=== PATIENT | female | born 1940 | race Hispanic/Latino ===

== ENCOUNTER 2018-03-24 16:08 | Emergency (ER) | payer MEDICARE, OTHER ==
[~2018-03-24] VITALS: Ht 160 cm; Wt 74.8 kg
[2018-03-24] MEDS ORDERED: HYDROCODONE/APAP 10MG-325MG TAB PO ONE (17:30)
[2018-03-24 19:57] VITALS: BP 150/63
--- NOTE | 2018-03-24 21:58 | Diagnostic Imaging Report ---
History: Fall Comparison studies: None Technique:: Axial were obtained through the thoracic and lumbar regions. Coronal and sagittal images reconstructed from the axial data. Intravenous contrast: None Findings: Alignment: Normal thoracic kyphosis. Grade 1 anterolisthesis f L4-5. Normal remaining lumbar lordosis.. mIld lumbar dextroscoliosis. Soft tissues: No acute abnormalities. Atherosclerotic calcifications of the aorta and branches. Paraspinal muscles: Fatty infiltration with moderate atrophy. Spinal cord: Can not be evaluated. Vertebrae: No fractures, infection or neoplasm . Thoracic degenerative changes: Disc degeneration with decreased intervertebral space from C7-T11. Patent canal and foramina. Lumbar degenerative changes: Disc degeneration with decreased intervertebral space from L1- 5. Vacuum disc phenomenon from L1- 4. Diffuse disc bulge and posterior element hypertrophy results in moderate canal stenosis and moderate bilateral foraminal narrowing from L2-5. Degenerative changes at the lower cervical spine partially visualized. IMPRESSION: 1. No acute abnormality of the thoracic or lumbar spine. Degenerative changes as described. 2. Cannot exclude ligament, spinal cord and or vascular abnormalities on the basis of this examination Signed by: DR Too Winkler M.D. on 03/24/2018 9:58 PM
== END 2018-03-24 21:35 | disposition home or self-care (01) ==
LOC: ER 16:08
DX: S39.012A Strain of muscle, fascia and tendon of lower back, initial encounter (principal); S29.012A Strain of muscle and tendon of back wall of thorax, initial encounter; G30.9 Alzheimer's disease, unspecified; F02.80 Dementia in other diseases classified elsewhere, unspecified severity, without behavioral disturbance, psychotic disturbance, mood disturbance, and anxiety; Z74.01 Bed confinement status; E11.9 Type 2 diabetes mellitus without complications; K21.9 Gastro-esophageal reflux disease without esophagitis; E78.5 Hyperlipidemia, unspecified; I11.0 Hypertensive heart disease with heart failure; I50.9 Heart failure, unspecified
CPT/HCPCS: 72128; 72131; 99284

== ENCOUNTER 2019-05-05 13:39 | Inpatient (IN) | payer MEDICARE, OTHER ==
[2019-05-04 21:50] VITALS: BP 134/57
[~2019-05-05] VITALS: Ht 154.9 cm; Wt 73.2 kg
--- OUTSIDE RECORDS SUMMARY | 2019-05-05 13:42 | XMS REPORT ---
[facility] Address Unknown Phone Unavailable Care Team Providers Care Qc Scientist Name Role Phone Tom SAUCEDO Unavailable Unavailable Payers Payer Name Policy Type Policy Number Effective Date Expiration Date Problems This patient has no known problems. Allergies, Adverse Reactions, Alerts Allergy Name Allergy Type Status Severity Reaction(s) Onset Date Inactive Date Treating Clinician Comments No Known Allergies DA Active U 2019-02-08 00:00:00 No Known Allergies DA Active U 2015-03-09 00:00:00 Medications This patient has no known medications. Results Test Description Test Time Test Comments Text Results Atomic Results Result Comments CREATININE 2019-04-07 12:42:00 CREATININE (test code=CREAT) 0.6 mg/dL 0.6-1.3 FAX [phone] 12:31:00* Test Item Value Reference Range Comments HEMOGLOBIN (test code=HGB) 10.6 g/dL 11.0-15.0 FAX [phone] 13:15:00* Test Item Value Reference Range Comments GLUBED (test code=GLUBED) 102 MG/DL 70-110 Performed by certified bottle capping machine operator at [facility] [id number] 08:30:00* Test Item Value Reference Range Comments GLUBED (test code=GLUBED) 92 MG/DL 70-110 Performed by certified bottle capping machine operator at [facility] BASIC METABOLIC [id number] 04:27:00* Test Item Value Reference Range Comments SODIUM (test code=NA) 142 mEq/L 134-147 POTASSIUM (test code=K) 3.9 mEq/L 3.4-5.0 CHLORIDE (test code=CL) 111 mEq/L 100-108 CARBON DIOXIDE (test code=CO2) 24 mEq/L 21-33 ANION GAP (test code=GAP) 11 0-20 GLUCOSE (test code=GLU) 96 mg/dL 70-110 BLOOD UREA NITROGEN (test code=BUN) 9 mg/dL 7-18 GLOMERULAR FILTRATION RATE (test code=GFR) 154.4 70-80 Units of measure=ml/min/1.73 m2 CREATININE (test code=CREAT) 0.4 mg/dL 0.6-1.3 CALCIUM (test code=CA) 8.8 mg/dL 8.0-10.5 [id number] 04:27:00* Test Item Value Reference Range Comments MAGNESIUM (test code=MAG) 2.40 mg/dL 1.8-2.4 CBC W/AUTO [id number] 04:15:00* Test Item Value Reference Range Comments WHITE BLOOD CELL (test code=WBC) 9.01 x10 3/uL 4.5-11.0 RED BLOOD CELL (test code=RBC) 4.03 x10 6/uL 3.54-5.02 HEMOGLOBIN (test code=HGB) 11.0 g/dL 11.0-15.0 HEMATOCRIT (test code=HCT) 35.5 % 33.0-45.0 MEAN CELL VOLUME (test code=MCV) 88.1 fL 81.0-99.0 MEAN CELL HGB (test code=MCH) 27.3 pg 27.0-33.0 MEAN CELL HGB CONCETRATION (test code=MCHC) 31.0 g/dL 33.0-37.0 RED CELL DISTRIBUTION WIDTH CV (test code=RDW) 15.6 % 11.5-14.5 RED CELL DISTRIBUTION WIDTH SD (test code=RDW-SD) 50.4 fL 37.0-54.0 PLATELET COUNT (test code=PLT) 116 x10 3/uL 150-400 MEAN PLATELET VOLUME (test code=MPV) 10.2 fL 7.0-9.0 NEUTROPHIL % (test code=NT%) 63.4 % 56.0-77.0 IMMATURE GRANULOCYTE % (test code=IG%) 0.2 % 0.0-2.0 LYMPHOCYTE % (test code=LY%) 19.8 % 14.0-32.0 MONOCYTE % (test code=MO%) 9.5 % 4.8-9.0 EOSINOPHIL % (test code=EO%) 6.7 % 0.3-3.7 BASOPHIL % (test code=BA%) 0.4 % 0.0-2.0 NUCLEATED RBC % (test code=NRBC%) 0.0 % 0-0 NEUTROPHIL # (test code=NT#) 5.71 x10 3/uL 2.0-7.6 IMMATURE GRANULOCYTE # (test code=IG#) 0.02 x10 3/uL 0.00-0.03 LYMPHOCYTE # (test code=LY#) 1.78 x10 3/uL 1.0-3.8 MONOCYTE # (test code=MO#) 0.86 x10 3/uL 0.1-0.8 EOSINOPHIL # (test code=EO#) 0.60 x10 3/uL 0.0-0.2 BASOPHIL # (test code=BA#) 0.04 x10 3/uL 0.0-0.2 NUCLEATED RBC # (test code=NRBC#) 0.00 x10 3/uL 0.0-0.1 MANUAL DIFF REQUIRED (test code=MDIFF) NO [id number] 21:11:00* Test Item Value Reference Range Comments GLUBED (test code=GLUBED) 100 MG/DL 70-110 Performed by certified bottle capping machine operator at [facility] [id number] 17:10:00* Test Item Value Reference Range Comments GLUBED (test code=GLUBED) 97 MG/DL 70-110 Performed by certified bottle capping machine operator at [facility] [id number] 12:31:00* Test Item Value Reference Range Comments GLUBED (test code=GLUBED) 143 MG/DL 70-110 Performed by certified bottle capping machine operator at [facility] BASIC METABOLIC [id number] 05:22:00* Test Item Value Reference Range Comments SODIUM (test code=NA) 140 mEq/L 134-147 POTASSIUM (test code=K) 3.7 mEq/L 3.4-5.0 CHLORIDE (test code=CL) 109 mEq/L 100-108 CARBON DIOXIDE (test code=CO2) 25 mEq/L 21-33 ANION GAP (test code=GAP) 10 0-20 GLUCOSE (test code=GLU) 94 mg/dL 70-110 BLOOD UREA NITROGEN (test code=BUN) 9 mg/dL 7-18 GLOMERULAR FILTRATION RATE (test code=GFR) 154.4 70-80 Units of measure=ml/min/1.73 m2 CREATININE (test code=CREAT) 0.4 mg/dL 0.6-1.3 CALCIUM (test code=CA) 8.3 mg/dL 8.0-10.5 CBC W/AUTO [id number] 05:07:00* Test Item Value Reference Range Comments WHITE BLOOD CELL (test code=WBC) 9.28 x10 3/uL 4.5-11.0 RED BLOOD CELL (test code=RBC) 3.81 x10 6/uL 3.54-5.02 HEMOGLOBIN (test code=HGB) 10.5 g/dL 11.0-15.0 HEMATOCRIT (test code=HCT) 33.7 % 33.0-45.0 MEAN CELL VOLUME (test code=MCV) 88.5 fL 81.0-99.0 MEAN CELL HGB (test code=MCH) 27.6 pg 27.0-33.0 MEAN CELL HGB CONCETRATION (test code=MCHC) 31.2 g/dL 33.0-37.0 RED CELL DISTRIBUTION WIDTH CV (test code=RDW) 15.8 % 11.5-14.5 RED CELL DISTRIBUTION WIDTH SD (test code=RDW-SD) 51.2 fL 37.0-54.0 PLATELET COUNT (test code=PLT) 123 x10 3/uL 150-400 MEAN PLATELET VOLUME (test code=MPV) 10.1 fL 7.0-9.0 NEUTROPHIL % (test code=NT%) 61.0 % 56.0-77.0 IMMATURE GRANULOCYTE % (test code=IG%) 0.3 % 0.0-2.0 LYMPHOCYTE % (test code=LY%) 22.8 % 14.0-32.0 MONOCYTE % (test code=MO%) 11.4 % 4.8-9.0 EOSINOPHIL % (test code=EO%) 4.2 % 0.3-3.7 BASOPHIL % (test code=BA%) 0.3 % 0.0-2.0 NUCLEATED RBC % (test code=NRBC%) 0.0 % 0-0 NEUTROPHIL # (test code=NT#) 5.65 x10 3/uL 2.0-7.6 IMMATURE GRANULOCYTE # (test code=IG#) 0.03 x10 3/uL 0.00-0.03 LYMPHOCYTE # (test code=LY#) 2.12 x10 3/uL 1.0-3.8 MONOCYTE # (test code=MO#) 1.06 x10 3/uL 0.1-0.8 EOSINOPHIL # (test code=EO#) 0.39 x10 3/uL 0.0-0.2 BASOPHIL # (test code=BA#) 0.03 x10 3/uL 0.0-0.2 NUCLEATED RBC # (test code=NRBC#) 0.00 x10 3/uL 0.0-0.1 MANUAL DIFF REQUIRED (test code=MDIFF) NO [id number] 11:30:00* Test Item Value Reference Range Comments GLUBED (test code=GLUBED) 133 MG/DL 70-110 Performed by certified bottle capping machine operator at [facility] [id number] 10:46:00* Test Item Value Reference Range Comments ALBUMIN (test code=ALB) 3.00 g/dL 3.4-5.0 [id number] 07:46:00* Test Item Value Reference Range Comments GLUBED (test code=GLUBED) 230 MG/DL 70-110 Performed by certified bottle capping machine operator at [facility] - DUP VEIN UNI/[id number] 07:01:00 Name: JARED PAREDES [facility] : 1940 Age/S: 78 / F [address] [place] [address] Unit #: [id number] Loc: [place] [address] Phys: Kasie De La Rosa [employer] DISPATCHER Acct: [id number] Dis Date: Status: ADM IN PHONE #: [phone] Exam Date: 03/03/2019 0508 FAX #: [phone] Reason: pain, edema LUE EXAMS: CPT CODE: [id number] DUP VEIN UNI/LTD 94580 PROCEDURE: UNILATERAL UPPER EXTREMITY VENOUS ULTRASOUND INDICATION: 78-year-old female with left upper extremity pain and edema COMPARISON: None. TECHNIQUE: Sonographic evaluation of the left upper extremity veins was performed using high resolution B- mode imaging, pulse and color Doppler imaging. FINDINGS: The internal jugular, subclavian, axillary, brachial, radial and ulnar veins are patent. The basilic and cephalic veins are patent. Normal venous waveforms. IMPRESSION: 1. No deep venous thrombosis identified in the left upper extremity. SL: CYSauravH at 0701 Reported and signed by: Neel Curtis M.D. CC: Kala La MD; Pilar Nguyen MD; Rocky Romeo MD; Kasie De La Rosa NP Technologist: Adeline Lopes RDMS(A)(OB) Trnscb Date/Time: 03/03/2019 (700) MyriamRH17 Orig Print D/T: S: 03/03/2019 (703) Probe: PAGE 1 Signed Report BASIC METABOLIC [id number] 04:21:00* Test Item Value Reference Range Comments SODIUM (test code=NA) 142 mEq/L 134-147 POTASSIUM (test code=K) 4.0 mEq/L 3.4-5.0 CHLORIDE (test code=CL) 111 mEq/L 100-108 CARBON DIOXIDE (test code=CO2) 24 mEq/L 21-33 ANION GAP (test code=GAP) 11 0-20 GLUCOSE (test code=GLU) 101 mg/dL 70-110 BLOOD UREA NITROGEN (test code=BUN) 8 mg/dL 7-18 GLOMERULAR FILTRATION RATE (test code=GFR) 119.3 70-80 Units of measure=ml/min/1.73 m2 CREATININE (test code=CREAT) 0.5 mg/dL 0.6-1.3 CALCIUM (test code=CA) 8.4 mg/dL 8.0-10.5 [id number] 20:23:00* Test Item Value Reference Range Comments GLUBED (test code=GLUBED) 88 MG/DL 70-110 Performed by certified bottle capping machine operator at [facility] COAGULATION TIME [id number] 16:32:00* Test Item Value Reference Range Comments COAGULATION TIME ACTIVATED (test code=ACT) 108 SECONDS 105-167 COAGULATION TIME [id number] 16:32:00* Test Item Value Reference Range Comments COAGULATION TIME ACTIVATED (test code=ACT) 261 SECONDS 105-167 COAGULATION TIME [id number] 16:32:00* Test Item Value Reference Range Comments COAGULATION TIME ACTIVATED (test code=ACT) 94 SECONDS 105-167 [id number] 16:16:00* Test Item Value Reference Range Comments GLUBED (test code=GLUBED) 118 MG/DL 70-110 Performed by certified bottle capping machine operator at [facility] BASIC METABOLIC [id number] 16:05:00* Test Item Value Reference Range Comments SODIUM (test code=NA) 142 mEq/L 134-147 POTASSIUM (test code=K) 3.8 mEq/L 3.4-5.0 CHLORIDE (test code=CL) 110 mEq/L 100-108 CARBON DIOXIDE (test code=CO2) 25 mEq/L 21-33 ANION GAP (test code=GAP) 11 0-20 GLUCOSE (test code=GLU) 114 mg/dL 70-110 BLOOD UREA NITROGEN (test code=BUN) 8 mg/dL 7-18 GLOMERULAR FILTRATION RATE (test code=GFR) 119.3 70-80 Units of measure=ml/min/1.73 m2 CREATININE (test code=CREAT) 0.5 mg/dL 0.6-1.3 CALCIUM (test code=CA) 8.2 mg/dL 8.0-10.5 THROMBOPLASTIN TIME [id number] 16:02:00* Test Item Value Reference Range Comments THROMBOPLASTIN TIME PARTIAL (test code=PTT) 34.9 Seconds 25.0-39.5 Therapeutic Range: 50.4 - 88.3 Seconds Effective 02/02/2019 CBC W/AUTO [id number] 15:52:00* Test Item Value Reference Range Comments WHITE BLOOD CELL (test code=WBC) 10.71 x10 3/uL 4.5-11.0 RED BLOOD CELL (test code=RBC) 3.87 x10 6/uL 3.54-5.02 HEMOGLOBIN (test code=HGB) 10.6 g/dL 11.0-15.0 HEMATOCRIT (test code=HCT) 34.5 % 33.0-45.0 MEAN CELL VOLUME (test code=MCV) 89.1 fL 81.0-99.0 MEAN CELL HGB (test code=MCH) 27.4 pg 27.0-33.0 MEAN CELL HGB CONCETRATION (test code=MCHC) 30.7 g/dL 33.0-37.0 RED CELL DISTRIBUTION WIDTH CV (test code=RDW) 15.7 % 11.5-14.5 RED CELL DISTRIBUTION WIDTH SD (test code=RDW-SD) 50.9 fL 37.0-54.0 PLATELET COUNT (test code=PLT) 183 x10 3/uL 150-400 MEAN PLATELET VOLUME (test code=MPV) 9.8 fL 7.0-9.0 NEUTROPHIL % (test code=NT%) 66.3 % 56.0-77.0 IMMATURE GRANULOCYTE % (test code=IG%) 0.6 % 0.0-2.0 LYMPHOCYTE % (test code=LY%) 24.6 % 14.0-32.0 MONOCYTE % (test code=MO%) 4.3 % 4.8-9.0 EOSINOPHIL % (test code=EO%) 3.8 % 0.3-3.7 BASOPHIL % (test code=BA%) 0.4 % 0.0-2.0 NUCLEATED RBC % (test code=NRBC%) 0.0 % 0-0 NEUTROPHIL # (test code=NT#) 7.11 x10 3/uL 2.0-7.6 IMMATURE GRANULOCYTE # (test code=IG#) 0.06 x10 3/uL 0.00-0.03 LYMPHOCYTE # (test code=LY#) 2.63 x10 3/uL 1.0-3.8 MONOCYTE # (test code=MO#) 0.46 x10 3/uL 0.1-0.8 EOSINOPHIL # (test code=EO#) 0.41 x10 3/uL 0.0-0.2 BASOPHIL # (test code=BA#) 0.04 x10 3/uL 0.0-0.2 NUCLEATED RBC # (test code=NRBC#) 0.00 x10 3/uL 0.0-0.1 MANUAL DIFF REQUIRED (test code=MDIFF) NO POC ARTERIAL BLOOD [id number] 14:47:00* Test Item Value Reference Range Comments POC ARTERIAL BLOOD GAS PH (test code=POCPHA) 7.384 7.35-7.45 POC ARTERIAL BLOOD GAS PCO2 (test code=WBXAUB3X) 43.0 mmHg 35.0-45 POC TCO2 ARTERIAL (test code=POCTCO2) 27.0 POC ARTERIAL BLOOD GAS PO2 (test code=JYRXT6Q) 383.8 mmHg 80-100.0 POC HCO3 ARTERIAL (test code=TEEVEH9Q) 25.7 MMOL/L 22.0-26.0 POC BASE EXCESS (test code=POCBEA) 0.4 MMOL/L -4.0-4.0 POC O2 SATURATION (test code=POCO2S) 100.0 % 90-100 [id number] 14:47:00* Test Item Value Reference Range Comments SODIUM (test code=NA/ABG) MEQ/L 134-147 [id number] 14:47:00* Test Item Value Reference Range Comments POTASSIUM (test code=K/ABG) MEQ/L 3.4-5.0 [id number] 14:47:00* Test Item Value Reference Range Comments CHLORIDE (test code=CL/ABG) MEQ/L 100-108 CREATININE [id number] 14:47:00* Test Item Value Reference Range Comments CREATININE ABG (test code=CREAABG) mg/dL 0.6-1.0 [id number] 14:47:00* Test Item Value Reference Range Comments HEMOGLOBIN (test code=HGB/ABG) G/DL 11.0-15.0 [id number] 14:47:00* Test Item Value Reference Range Comments HEMATOCRIT (test code=HCT/ABG) % 33.0-45.0 POC IONIZED [id number] 14:47:00* Test Item Value Reference Range Comments POC IONIZED CALCIUM (test code=POCCA) MMOL/L 1.12-1.32 POC [id number] 14:47:00* Test Item Value Reference Range Comments POC GLUCOSE (test code=POCGLU) MG/DL 70-110 POC ARTERIAL BLOOD [id number] 14:47:00* Test Item Value Reference Range Comments POC ARTERIAL BLOOD GAS PH (test code=POCPHA) 7.384 7.35-7.45 POC ARTERIAL BLOOD GAS PCO2 (test code=WPIWXD5E) 43.0 mmHg 35.0-45 POC TCO2 ARTERIAL (test code=POCTCO2) 27.0 POC ARTERIAL BLOOD GAS PO2 (test code=GMCEV9Z) 383.8 mmHg 80-100.0 POC HCO3 ARTERIAL (test code=EVIIRR0L) 25.7 MMOL/L 22.0-26.0 POC BASE EXCESS (test code=POCBEA) 0.4 MMOL/L -4.0-4.0 POC O2 SATURATION (test code=POCO2S) 100.0 % 90-100 [id number] 14:47:00* Test Item Value Reference Range Comments SODIUM (test code=NA/ABG) 143 MEQ/L 134-147 [id number] 14:47:00* Test Item Value Reference Range Comments POTASSIUM (test code=K/ABG) MEQ/L 3.4-5.0 [id number] 14:47:00* Test Item Value Reference Range Comments CHLORIDE (test code=CL/ABG) MEQ/L 100-108 CREATININE [id number] 14:47:00* Test Item Value Reference Range Comments CREATININE ABG (test code=CREAABG) mg/dL 0.6-1.0 [id number] 14:47:00* Test Item Value Reference Range Comments HEMOGLOBIN (test code=HGB/ABG) G/DL 11.0-15.0 [id number] 14:47:00* Test Item Value Reference Range Comments HEMATOCRIT (test code=HCT/ABG) % 33.0-45.0 POC IONIZED [id number] 14:47:00* Test Item Value Reference Range Comments POC IONIZED CALCIUM (test code=POCCA) MMOL/L 1.12-1.32 POC [id number] 14:47:00* Test Item Value Reference Range Comments POC GLUCOSE (test code=POCGLU) MG/DL 70-110 POC ARTERIAL BLOOD [id number] 14:47:00* Test Item Value Reference Range Comments POC ARTERIAL BLOOD GAS PH (test code=POCPHA) 7.384 7.35-7.45 POC ARTERIAL BLOOD GAS PCO2 (test code=FHTTSD2L) 43.0 mmHg 35.0-45 POC TCO2 ARTERIAL (test code=POCTCO2) 27.0 POC ARTERIAL BLOOD GAS PO2 (test code=HHZZU8N) 383.8 mmHg 80-100.0 POC HCO3 ARTERIAL (test code=NVAHAT2P) 25.7 MMOL/L 22.0-26.0 POC BASE EXCESS (test code=POCBEA) 0.4 MMOL/L -4.0-4.0 POC O2 SATURATION (test code=POCO2S) 100.0 % 90-100 [id number] 14:47:00* Test Item Value Reference Range Comments SODIUM (test code=NA/ABG) 143 MEQ/L 134-147 [id number] 14:47:00* Test Item Value Reference Range Comments POTASSIUM (test code=K/ABG) 4.0 MEQ/L 3.4-5.0 [id number] 14:47:00* Test Item Value Reference Range Comments CHLORIDE (test code=CL/ABG) MEQ/L 100-108 CREATININE [id number] 14:47:00* Test Item Value Reference Range Comments CREATININE ABG (test code=CREAABG) mg/dL 0.6-1.0 [id number] 14:47:00* Test Item Value Reference Range Comments HEMOGLOBIN (test code=HGB/ABG) G/DL 11.0-15.0 [id number] 14:47:00* Test Item Value Reference Range Comments HEMATOCRIT (test code=HCT/ABG) % 33.0-45.0 POC IONIZED [id number] 14:47:00* Test Item Value Reference Range Comments POC IONIZED CALCIUM (test code=POCCA) MMOL/L 1.12-1.32 POC [id number] 14:47:00* Test Item Value Reference Range Comments POC GLUCOSE (test code=POCGLU) MG/DL 70-110 POC ARTERIAL BLOOD [id number] 14:47:00* Test Item Value Reference Range Comments POC ARTERIAL BLOOD GAS PH (test code=POCPHA) 7.384 7.35-7.45 POC ARTERIAL BLOOD GAS PCO2 (test code=ZLYBTU1S) 43.0 mmHg 35.0-45 POC TCO2 ARTERIAL (test code=POCTCO2) 27.0 POC ARTERIAL BLOOD GAS PO2 (test code=FNNOW9J) 383.8 mmHg 80-100.0 POC HCO3 ARTERIAL (test code=PDISHI0D) 25.7 MMOL/L 22.0-26.0 POC BASE EXCESS (test code=POCBEA) 0.4 MMOL/L -4.0-4.0 POC O2 SATURATION (test code=POCO2S) 100.0 % 90-100 [id number] 14:47:00* Test Item Value Reference Range Comments SODIUM (test code=NA/ABG) 143 MEQ/L 134-147 [id number] 14:47:00* Test Item Value Reference Range Comments POTASSIUM (test code=K/ABG) 4.0 MEQ/L 3.4-5.0 [id number] 14:47:00* Test Item Value Reference Range Comments CHLORIDE (test code=CL/ABG) MEQ/L 100-108 CREATININE [id number] 14:47:00* Test Item Value Reference Range Comments CREATININE ABG (test code=CREAABG) mg/dL 0.6-1.0 [id number] 14:47:00* Test Item Value Reference Range Comments HEMOGLOBIN (test code=HGB/ABG) G/DL 11.0-15.0 [id number] 14:47:00* Test Item Value Reference Range Comments HEMATOCRIT (test code=HCT/ABG) % 33.0-45.0 POC IONIZED [id number] 14:47:00* Test Item Value Reference Range Comments POC IONIZED CALCIUM (test code=POCCA) 1.23 MMOL/L 1.12-1.32 POC [id number] 14:47:00* Test Item Value Reference Range Comments POC GLUCOSE (test code=POCGLU) MG/DL 70-110 POC ARTERIAL BLOOD [id number] 14:47:00* Test Item Value Reference Range Comments POC ARTERIAL BLOOD GAS PH (test code=POCPHA) 7.384 7.35-7.45 POC ARTERIAL BLOOD GAS PCO2 (test code=QYQYNI3J) 43.0 mmHg 35.0-45 POC TCO2 ARTERIAL (test code=POCTCO2) 27.0 POC ARTERIAL BLOOD GAS PO2 (test code=BNIIP5P) 383.8 mmHg 80-100.0 POC HCO3 ARTERIAL (test code=HEITHH8X) 25.7 MMOL/L 22.0-26.0 POC BASE EXCESS (test code=POCBEA) 0.4 MMOL/L -4.0-4.0 POC O2 SATURATION (test code=POCO2S) 100.0 % 90-100 [id number] 14:47:00* Test Item Value Reference Range Comments SODIUM (test code=NA/ABG) 143 MEQ/L 134-147 [id number] 14:47:00* Test Item Value Reference Range Comments POTASSIUM (test code=K/ABG) 4.0 MEQ/L 3.4-5.0 [id number] 14:47:00* Test Item Value Reference Range Comments CHLORIDE (test code=CL/ABG) MEQ/L 100-108 CREATININE [id number] 14:47:00* Test Item Value Reference Range Comments CREATININE ABG (test code=CREAABG) mg/dL 0.6-1.0 [id number] 14:47:00* Test Item Value Reference Range Comments HEMOGLOBIN (test code=HGB/ABG) G/DL 11.0-15.0 [id number] 14:47:00* Test Item Value Reference Range Comments HEMATOCRIT (test code=HCT/ABG) % 33.0-45.0 POC IONIZED [id number] 14:47:00* Test Item Value Reference Range Comments POC IONIZED CALCIUM (test code=POCCA) 1.23 MMOL/L 1.12-1.32 POC [id number] 14:47:00* Test Item Value Reference Range Comments POC GLUCOSE (test code=POCGLU) 125 MG/DL 70-110 POC ARTERIAL BLOOD [id number] 14:47:00* Test Item Value Reference Range Comments POC ARTERIAL BLOOD GAS PH (test code=POCPHA) 7.384 7.35-7.45 POC ARTERIAL BLOOD GAS PCO2 (test code=XHHSLZ2V) 43.0 mmHg 35.0-45 POC TCO2 ARTERIAL (test code=POCTCO2) 27.0 POC ARTERIAL BLOOD GAS PO2 (test code=AQJFK1K) 383.8 mmHg 80-100.0 POC HCO3 ARTERIAL (test code=BVCWKG3D) 25.7 MMOL/L 22.0-26.0 POC BASE EXCESS (test code=POCBEA) 0.4 MMOL/L -4.0-4.0 POC O2 SATURATION (test code=POCO2S) 100.0 % 90-100 [id number] 14:47:00* Test Item Value Reference Range Comments SODIUM (test code=NA/ABG) 143 MEQ/L 134-147 [id number] 14:47:00* Test Item Value Reference Range Comments POTASSIUM (test code=K/ABG) 4.0 MEQ/L 3.4-5.0 [id number] 14:47:00* Test Item Value Reference Range Comments CHLORIDE (test code=CL/ABG) MEQ/L 100-108 CREATININE [id number] 14:47:00* Test Item Value Reference Range Comments CREATININE ABG (test code=CREAABG) mg/dL 0.6-1.0 [id number] 14:47:00* Test Item Value Reference Range Comments HEMOGLOBIN (test code=HGB/ABG) G/DL 11.0-15.0 [id number] 14:47:00* Test Item Value Reference Range Comments HEMATOCRIT (test code=HCT/ABG) 31 % 33.0-45.0 POC IONIZED [id number] 14:47:00* Test Item Value Reference Range Comments POC IONIZED CALCIUM (test code=POCCA) 1.23 MMOL/L 1.12-1.32 POC [id number] 14:47:00* Test Item Value Reference Range Comments POC GLUCOSE (test code=POCGLU) 125 MG/DL 70-110 POC ARTERIAL BLOOD [id number] 14:47:00* Test Item Value Reference Range Comments POC ARTERIAL BLOOD GAS PH (test code=POCPHA) 7.384 7.35-7.45 POC ARTERIAL BLOOD GAS PCO2 (test code=WGYUXX0J) 43.0 mmHg 35.0-45 POC TCO2 ARTERIAL (test code=POCTCO2) 27.0 POC ARTERIAL BLOOD GAS PO2 (test code=HGQRU0R) 383.8 mmHg 80-100.0 POC HCO3 ARTERIAL (test code=YEZILD3U) 25.7 MMOL/L 22.0-26.0 POC BASE EXCESS (test code=POCBEA) 0.4 MMOL/L -4.0-4.0 POC O2 SATURATION (test code=POCO2S) 100.0 % 90-100 [id number] 14:47:00* Test Item Value Reference Range Comments SODIUM (test code=NA/ABG) 143 MEQ/L 134-147 [id number] 14:47:00* Test Item Value Reference Range Comments POTASSIUM (test code=K/ABG) 4.0 MEQ/L 3.4-5.0 [id number] 14:47:00* Test Item Value Reference Range Comments CHLORIDE (test code=CL/ABG) MEQ/L 100-108 CREATININE [id number] 14:47:00* Test Item Value Reference Range Comments CREATININE ABG (test code=CREAABG) mg/dL 0.6-1.0 [id number] 14:47:00* Test Item Value Reference Range Comments HEMOGLOBIN (test code=HGB/ABG) 10.4 G/DL 11.0-15.0 [id number] 14:47:00* Test Item Value Reference Range Comments HEMATOCRIT (test code=HCT/ABG) 31 % 33.0-45.0 POC IONIZED [id number] 14:47:00* Test Item Value Reference Range Comments POC IONIZED CALCIUM (test code=POCCA) 1.23 MMOL/L 1.12-1.32 POC [id number] 14:47:00* Test Item Value Reference Range Comments POC GLUCOSE (test code=POCGLU) 125 MG/DL 70-110 POC ARTERIAL BLOOD [id number] 14:47:00* Test Item Value Reference Range Comments POC ARTERIAL BLOOD GAS PH (test code=POCPHA) 7.384 7.35-7.45 POC ARTERIAL BLOOD GAS PCO2 (test code=NLHINH0X) 43.0 mmHg 35.0-45 POC TCO2 ARTERIAL (test code=POCTCO2) 27.0 POC ARTERIAL BLOOD GAS PO2 (test code=QOIUX4G) 383.8 mmHg 80-100.0 POC HCO3 ARTERIAL (test code=XPXXZY2C) 25.7 MMOL/L 22.0-26.0 POC BASE EXCESS (test code=POCBEA) 0.4 MMOL/L -4.0-4.0 POC O2 SATURATION (test code=POCO2S) 100.0 % 90-100 [id number] 14:47:00* Test Item Value Reference Range Comments SODIUM (test code=NA/ABG) 143 MEQ/L 134-147 [id number] 14:47:00* Test Item Value Reference Range Comments POTASSIUM (test code=K/ABG) 4.0 MEQ/L 3.4-5.0 [id number] 14:47:00* Test Item Value Reference Range Comments CHLORIDE (test code=CL/ABG) 108 MEQ/L 100-108 CREATININE [id number] 14:47:00* Test Item Value Reference Range Comments CREATININE ABG (test code=CREAABG) mg/dL 0.6-1.0 [id number] 14:47:00* Test Item Value Reference Range Comments HEMOGLOBIN (test code=HGB/ABG) 10.4 G/DL 11.0-15.0 [id number] 14:47:00* Test Item Value Reference Range Comments HEMATOCRIT (test code=HCT/ABG) 31 % 33.0-45.0 POC IONIZED [id number] 14:47:00* Test Item Value Reference Range Comments POC IONIZED CALCIUM (test code=POCCA) 1.23 MMOL/L 1.12-1.32 POC [id number] 14:47:00* Test Item Value Reference Range Comments POC GLUCOSE (test code=POCGLU) 125 MG/DL 70-110 POC ARTERIAL BLOOD [id number] 14:47:00* Test Item Value Reference Range Comments POC ARTERIAL BLOOD GAS PH (test code=POCPHA) 7.384 7.35-7.45 POC ARTERIAL BLOOD GAS PCO2 (test code=HGVMEU3G) 43.0 mmHg 35.0-45 POC TCO2 ARTERIAL (test code=POCTCO2) 27.0 POC ARTERIAL BLOOD GAS PO2 (test code=DVJAP4T) 383.8 mmHg 80-100.0 POC HCO3 ARTERIAL (test code=DVEWSG9M) 25.7 MMOL/L 22.0-26.0 POC BASE EXCESS (test code=POCBEA) 0.4 MMOL/L -4.0-4.0 POC O2 SATURATION (test code=POCO2S) 100.0 % 90-100 [id number] 14:47:00* Test Item Value Reference Range Comments SODIUM (test code=NA/ABG) 143 MEQ/L 134-147 [id number] 14:47:00* Test Item Value Reference Range Comments POTASSIUM (test code=K/ABG) 4.0 MEQ/L 3.4-5.0 [id number] 14:47:00* Test Item Value Reference Range Comments CHLORIDE (test code=CL/ABG) 108 MEQ/L 100-108 CREATININE [id number] 14:47:00* Test Item Value Reference Range Comments CREATININE ABG (test code=CREAABG) < 0.3 mg/dL 0.6-1.0 [id number] 14:47:00* Test Item Value Reference Range Comments HEMOGLOBIN (test code=HGB/ABG) 10.4 G/DL 11.0-15.0 [id number] 14:47:00* Test Item Value Reference Range Comments HEMATOCRIT (test code=HCT/ABG) 31 % 33.0-45.0 POC IONIZED [id number] 14:47:00* Test Item Value Reference Range Comments POC IONIZED CALCIUM (test code=POCCA) 1.23 MMOL/L 1.12-1.32 POC [id number] 14:47:00* Test Item Value Reference Range Comments POC GLUCOSE (test code=POCGLU) 125 MG/DL 70-110 POC ARTERIAL BLOOD [id number] 13:52:00* Test Item Value Reference Range Comments POC ARTERIAL BLOOD GAS PH (test code=POCPHA) 7.329 7.35-7.45 POC ARTERIAL BLOOD GAS PCO2 (test code=MTWHIO6V) 54.1 mmHg 35.0-45 POC TCO2 ARTERIAL (test code=POCTCO2) 30.1 POC ARTERIAL BLOOD GAS PO2 (test code=ZSANX8Q) 326.4 mmHg 80-100.0 POC HCO3 ARTERIAL (test code=JUJCPE3A) 28.5 MMOL/L 22.0-26.0 POC BASE EXCESS (test code=POCBEA) 1.6 MMOL/L -4.0-4.0 POC O2 SATURATION (test code=POCO2S) 99.9 % 90-100 [id number] 13:52:00* Test Item Value Reference Range Comments SODIUM (test code=NA/ABG) MEQ/L 134-147 [id number] 13:52:00* Test Item Value Reference Range Comments POTASSIUM (test code=K/ABG) MEQ/L 3.4-5.0 [id number] 13:52:00* Test Item Value Reference Range Comments CHLORIDE (test code=CL/ABG) MEQ/L 100-108 CREATININE [id number] 13:52:00* Test Item Value Reference Range Comments CREATININE ABG (test code=CREAABG) mg/dL 0.6-1.0 [id number] 13:52:00* Test Item Value Reference Range Comments HEMOGLOBIN (test code=HGB/ABG) G/DL 11.0-15.0 [id number] 13:52:00* Test Item Value Reference Range Comments HEMATOCRIT (test code=HCT/ABG) % 33.0-45.0 POC IONIZED [id number] 13:52:00* Test Item Value Reference Range Comments POC IONIZED CALCIUM (test code=POCCA) MMOL/L 1.12-1.32 POC [id number] 13:52:00* Test Item Value Reference Range Comments POC GLUCOSE (test code=POCGLU) MG/DL 70-110 POC ARTERIAL BLOOD [id number] 13:52:00* Test Item Value Reference Range Comments POC ARTERIAL BLOOD GAS PH (test code=POCPHA) 7.329 7.35-7.45 POC ARTERIAL BLOOD GAS PCO2 (test code=GAYCPF5Z) 54.1 mmHg 35.0-45 POC TCO2 ARTERIAL (test code=POCTCO2) 30.1 POC ARTERIAL BLOOD GAS PO2 (test code=XUXEX0G) 326.4 mmHg 80-100.0 POC HCO3 ARTERIAL (test code=WIZLTE0L) 28.5 MMOL/L 22.0-26.0 POC BASE EXCESS (test code=POCBEA) 1.6 MMOL/L -4.0-4.0 POC O2 SATURATION (test code=POCO2S) 99.9 % 90-100 [id number] 13:52:00* Test Item Value Reference Range Comments SODIUM (test code=NA/ABG) 145 MEQ/L 134-147 [id number] 13:52:00* Test Item Value Reference Range Comments POTASSIUM (test code=K/ABG) MEQ/L 3.4-5.0 [id number] 13:52:00* Test Item Value Reference Range Comments CHLORIDE (test code=CL/ABG) MEQ/L 100-108 CREATININE [id number] 13:52:00* Test Item Value Reference Range Comments CREATININE ABG (test code=CREAABG) mg/dL 0.6-1.0 [id number] 13:52:00* Test Item Value Reference Range Comments HEMOGLOBIN (test code=HGB/ABG) G/DL 11.0-15.0 [id number] 13:52:00* Test Item Value Reference Range Comments HEMATOCRIT (test code=HCT/ABG) % 33.0-45.0 POC IONIZED [id number] 13:52:00* Test Item Value Reference Range Comments POC IONIZED CALCIUM (test code=POCCA) MMOL/L 1.12-1.32 POC [id number] 13:52:00* Test Item Value Reference Range Comments POC GLUCOSE (test code=POCGLU) MG/DL 70-110 POC ARTERIAL BLOOD [id number] 13:52:00* Test Item Value Reference Range Comments POC ARTERIAL BLOOD GAS PH (test code=POCPHA) 7.329 7.35-7.45 POC ARTERIAL BLOOD GAS PCO2 (test code=TIOOIH2Q) 54.1 mmHg 35.0-45 POC TCO2 ARTERIAL (test code=POCTCO2) 30.1 POC ARTERIAL BLOOD GAS PO2 (test code=PSGGQ3N) 326.4 mmHg 80-100.0 POC HCO3 ARTERIAL (test code=YYYXQT6A) 28.5 MMOL/L 22.0-26.0 POC BASE EXCESS (test code=POCBEA) 1.6 MMOL/L -4.0-4.0 POC O2 SATURATION (test code=POCO2S) 99.9 % 90-100 [id number] 13:52:00* Test Item Value Reference Range Comments SODIUM (test code=NA/ABG) 145 MEQ/L 134-147 [id number] 13:52:00* Test Item Value Reference Range Comments POTASSIUM (test code=K/ABG) 4.1 MEQ/L 3.4-5.0 [id number] 13:52:00* Test Item Value Reference Range Comments CHLORIDE (test code=CL/ABG) MEQ/L 100-108 CREATININE [id number] 13:52:00* Test Item Value Reference Range Comments CREATININE ABG (test code=CREAABG) mg/dL 0.6-1.0 [id number] 13:52:00* Test Item Value Reference Range Comments HEMOGLOBIN (test code=HGB/ABG) G/DL 11.0-15.0 [id number] 13:52:00* Test Item Value Reference Range Comments HEMATOCRIT (test code=HCT/ABG) % 33.0-45.0 POC IONIZED [id number] 13:52:00* Test Item Value Reference Range Comments POC IONIZED CALCIUM (test code=POCCA) MMOL/L 1.12-1.32 POC [id number] 13:52:00* Test Item Value Reference Range Comments POC GLUCOSE (test code=POCGLU) MG/DL 70-110 POC ARTERIAL BLOOD [id number] 13:52:00* Test Item Value Reference Range Comments POC ARTERIAL BLOOD GAS PH (test code=POCPHA) 7.329 7.35-7.45 POC ARTERIAL BLOOD GAS PCO2 (test code=USEYMM3O) 54.1 mmHg 35.0-45 POC TCO2 ARTERIAL (test code=POCTCO2) 30.1 POC ARTERIAL BLOOD GAS PO2 (test code=XFEDI3M) 326.4 mmHg 80-100.0 POC HCO3 ARTERIAL (test code=TLCSXG9S) 28.5 MMOL/L 22.0-26.0 POC BASE EXCESS (test code=POCBEA) 1.6 MMOL/L -4.0-4.0 POC O2 SATURATION (test code=POCO2S) 99.9 % 90-100 [id number] 13:52:00* Test Item Value Reference Range Comments SODIUM (test code=NA/ABG) 145 MEQ/L 134-147 [id number] 13:52:00* Test Item Value Reference Range Comments POTASSIUM (test code=K/ABG) 4.1 MEQ/L 3.4-5.0 [id number] 13:52:00* Test Item Value Reference Range Comments CHLORIDE (test code=CL/ABG) MEQ/L 100-108 CREATININE [id number] 13:52:00* Test Item Value Reference Range Comments CREATININE ABG (test code=CREAABG) mg/dL 0.6-1.0 [id number] 13:52:00* Test Item Value Reference Range Comments HEMOGLOBIN (test code=HGB/ABG) G/DL 11.0-15.0 [id number] 13:52:00* Test Item Value Reference Range Comments HEMATOCRIT (test code=HCT/ABG) % 33.0-45.0 POC IONIZED [id number] 13:52:00* Test Item Value Reference Range Comments POC IONIZED CALCIUM (test code=POCCA) 1.32 MMOL/L 1.12-1.32 POC [id number] 13:52:00* Test Item Value Reference Range Comments POC GLUCOSE (test code=POCGLU) MG/DL 70-110 POC ARTERIAL BLOOD [id number] 13:52:00* Test Item Value Reference Range Comments POC ARTERIAL BLOOD GAS PH (test code=POCPHA) 7.329 7.35-7.45 POC ARTERIAL BLOOD GAS PCO2 (test code=SNVTIN8M) 54.1 mmHg 35.0-45 POC TCO2 ARTERIAL (test code=POCTCO2) 30.1 POC ARTERIAL BLOOD GAS PO2 (test code=ELSGO8Z) 326.4 mmHg 80-100.0 POC HCO3 ARTERIAL (test code=ZISVBD0L) 28.5 MMOL/L 22.0-26.0 POC BASE EXCESS (test code=POCBEA) 1.6 MMOL/L -4.0-4.0 POC O2 SATURATION (test code=POCO2S) 99.9 % 90-100 [id number] 13:52:00* Test Item Value Reference Range Comments SODIUM (test code=NA/ABG) 145 MEQ/L 134-147 [id number] 13:52:00* Test Item Value Reference Range Comments POTASSIUM (test code=K/ABG) 4.1 MEQ/L 3.4-5.0 [id number] 13:52:00* Test Item Value Reference Range Comments CHLORIDE (test code=CL/ABG) MEQ/L 100-108 CREATININE [id number] 13:52:00* Test Item Value Reference Range Comments CREATININE ABG (test code=CREAABG) mg/dL 0.6-1.0 [id number] 13:52:00* Test Item Value Reference Range Comments HEMOGLOBIN (test code=HGB/ABG) G/DL 11.0-15.0 [id number] 13:52:00* Test Item Value Reference Range Comments HEMATOCRIT (test code=HCT/ABG) % 33.0-45.0 POC IONIZED [id number] 13:52:00* Test Item Value Reference Range Comments POC IONIZED CALCIUM (test code=POCCA) 1.32 MMOL/L 1.12-1.32 POC [id number] 13:52:00* Test Item Value Reference Range Comments POC GLUCOSE (test code=POCGLU) 111 MG/DL 70-110 POC ARTERIAL BLOOD [id number] 13:52:00* Test Item Value Reference Range Comments POC ARTERIAL BLOOD GAS PH (test code=POCPHA) 7.329 7.35-7.45 POC ARTERIAL BLOOD GAS PCO2 (test code=KUBROE1K) 54.1 mmHg 35.0-45 POC TCO2 ARTERIAL (test code=POCTCO2) 30.1 POC ARTERIAL BLOOD GAS PO2 (test code=YWVGN4E) 326.4 mmHg 80-100.0 POC HCO3 ARTERIAL (test code=LVZGRH2Y) 28.5 MMOL/L 22.0-26.0 POC BASE EXCESS (test code=POCBEA) 1.6 MMOL/L -4.0-4.0 POC O2 SATURATION (test code=POCO2S) 99.9 % 90-100 [id number] 13:52:00* Test Item Value Reference Range Comments SODIUM (test code=NA/ABG) 145 MEQ/L 134-147 [id number] 13:52:00* Test Item Value Reference Range Comments POTASSIUM (test code=K/ABG) 4.1 MEQ/L 3.4-5.0 [id number] 13:52:00* Test Item Value Reference Range Comments CHLORIDE (test code=CL/ABG) MEQ/L 100-108 CREATININE [id number] 13:52:00* Test Item Value Reference Range Comments CREATININE ABG (test code=CREAABG) mg/dL 0.6-1.0 [id number] 13:52:00* Test Item Value Reference Range Comments HEMOGLOBIN (test code=HGB/ABG) G/DL 11.0-15.0 [id number] 13:52:00* Test Item Value Reference Range Comments HEMATOCRIT (test code=HCT/ABG) 36 % 33.0-45.0 POC IONIZED [id number] 13:52:00* Test Item Value Reference Range Comments POC IONIZED CALCIUM (test code=POCCA) 1.32 MMOL/L 1.12-1.32 POC [id number] 13:52:00* Test Item Value Reference Range Comments POC GLUCOSE (test code=POCGLU) 111 MG/DL 70-110 POC ARTERIAL BLOOD [id number] 13:52:00* Test Item Value Reference Range Comments POC ARTERIAL BLOOD GAS PH (test code=POCPHA) 7.329 7.35-7.45 POC ARTERIAL BLOOD GAS PCO2 (test code=VAIVVG4L) 54.1 mmHg 35.0-45 POC TCO2 ARTERIAL (test code=POCTCO2) 30.1 POC ARTERIAL BLOOD GAS PO2 (test code=TRIBX4Y) 326.4 mmHg 80-100.0 POC HCO3 ARTERIAL (test code=KGVXQY1K) 28.5 MMOL/L 22.0-26.0 POC BASE EXCESS (test code=POCBEA) 1.6 MMOL/L -4.0-4.0 POC O2 SATURATION (test code=POCO2S) 99.9 % 90-100 [id number] 13:52:00* Test Item Value Reference Range Comments SODIUM (test code=NA/ABG) 145 MEQ/L 134-147 [id number] 13:52:00* Test Item Value Reference Range Comments POTASSIUM (test code=K/ABG) 4.1 MEQ/L 3.4-5.0 [id number] 13:52:00* Test Item Value Reference Range Comments CHLORIDE (test code=CL/ABG) MEQ/L 100-108 CREATININE [id number] 13:52:00* Test Item Value Reference Range Comments CREATININE ABG (test code=CREAABG) mg/dL 0.6-1.0 [id number] 13:52:00* Test Item Value Reference Range Comments HEMOGLOBIN (test code=HGB/ABG) 12.2 G/DL 11.0-15.0 [id number] 13:52:00* Test Item Value Reference Range Comments HEMATOCRIT (test code=HCT/ABG) 36 % 33.0-45.0 POC IONIZED [id number] 13:52:00* Test Item Value Reference Range Comments POC IONIZED CALCIUM (test code=POCCA) 1.32 MMOL/L 1.12-1.32 POC [id number] 13:52:00* Test Item Value Reference Range Comments POC GLUCOSE (test code=POCGLU) 111 MG/DL 70-110 POC ARTERIAL BLOOD [id number] 13:52:00* Test Item Value Reference Range Comments POC ARTERIAL BLOOD GAS PH (test code=POCPHA) 7.329 7.35-7.45 POC ARTERIAL BLOOD GAS PCO2 (test code=YHMQND5E) 54.1 mmHg 35.0-45 POC TCO2 ARTERIAL (test code=POCTCO2) 30.1 POC ARTERIAL BLOOD GAS PO2 (test code=PBEFI0Z) 326.4 mmHg 80-100.0 POC HCO3 ARTERIAL (test code=DOHUJI9C) 28.5 MMOL/L 22.0-26.0 POC BASE EXCESS (test code=POCBEA) 1.6 MMOL/L -4.0-4.0 POC O2 SATURATION (test code=POCO2S) 99.9 % 90-100 [id number] 13:52:00* Test Item Value Reference Range Comments SODIUM (test code=NA/ABG) 145 MEQ/L 134-147 [id number] 13:52:00* Test Item Value Reference Range Comments POTASSIUM (test code=K/ABG) 4.1 MEQ/L 3.4-5.0 [id number] 13:52:00* Test Item Value Reference Range Comments CHLORIDE (test code=CL/ABG) 110 MEQ/L 100-108 CREATININE [id number] 13:52:00* Test Item Value Reference Range Comments CREATININE ABG (test code=CREAABG) mg/dL 0.6-1.0 [id number] 13:52:00* Test Item Value Reference Range Comments HEMOGLOBIN (test code=HGB/ABG) 12.2 G/DL 11.0-15.0 [id number] 13:52:00* Test Item Value Reference Range Comments HEMATOCRIT (test code=HCT/ABG) 36 % 33.0-45.0 POC IONIZED [id number] 13:52:00* Test Item Value Reference Range Comments POC IONIZED CALCIUM (test code=POCCA) 1.32 MMOL/L 1.12-1.32 POC [id number] 13:52:00* Test Item Value Reference Range Comments POC GLUCOSE (test code=POCGLU) 111 MG/DL 70-110 POC ARTERIAL BLOOD [id number] 13:52:00* Test Item Value Reference Range Comments POC ARTERIAL BLOOD GAS PH (test code=POCPHA) 7.329 7.35-7.45 POC ARTERIAL BLOOD GAS PCO2 (test code=VXPAKA9Y) 54.1 mmHg 35.0-45 POC TCO2 ARTERIAL (test code=POCTCO2) 30.1 POC ARTERIAL BLOOD GAS PO2 (test code=YFQIY6D) 326.4 mmHg 80-100.0 POC HCO3 ARTERIAL (test code=LZYZON6O) 28.5 MMOL/L 22.0-26.0 POC BASE EXCESS (test code=POCBEA) 1.6 MMOL/L -4.0-4.0 POC O2 SATURATION (test code=POCO2S) 99.9 % 90-100 [id number] 13:52:00* Test Item Value Reference Range Comments SODIUM (test code=NA/ABG) 145 MEQ/L 134-147 [id number] 13:52:00* Test Item Value Reference Range Comments POTASSIUM (test code=K/ABG) 4.1 MEQ/L 3.4-5.0 [id number] 13:52:00* Test Item Value Reference Range Comments CHLORIDE (test code=CL/ABG) 110 MEQ/L 100-108 CREATININE [id number] 13:52:00* Test Item Value Reference Range Comments CREATININE ABG (test code=CREAABG) < 0.3 mg/dL 0.6-1.0 [id number] 13:52:00* Test Item Value Reference Range Comments HEMOGLOBIN (test code=HGB/ABG) 12.2 G/DL 11.0-15.0 [id number] 13:52:00* Test Item Value Reference Range Comments HEMATOCRIT (test code=HCT/ABG) 36 % 33.0-45.0 POC IONIZED [id number] 13:52:00* Test Item Value Reference Range Comments POC IONIZED CALCIUM (test code=POCCA) 1.32 MMOL/L 1.12-1.32 POC [id number] 13:52:00* Test Item Value Reference Range Comments POC GLUCOSE (test code=POCGLU) 111 MG/DL 70-110 [id number] 11:28:00* Test Item Value Reference Range Comments GLUBED (test code=GLUBED) 85 MG/DL 70-110 Performed by certified bottle capping machine operator at [facility] CBC W/AUTO [id number] 10:49:00* Test Item Value Reference Range Comments WHITE BLOOD CELL (test code=WBC) 9.79 x10 3/uL 4.5-11.0 RED BLOOD CELL (test code=RBC) 4.38 x10 6/uL 3.54-5.02 HEMOGLOBIN (test code=HGB) 11.8 g/dL 11.0-15.0 HEMATOCRIT (test code=HCT) 38.6 % 33.0-45.0 MEAN CELL VOLUME (test code=MCV) 88.1 fL 81.0-99.0 MEAN CELL HGB (test code=MCH) 26.9 pg 27.0-33.0 MEAN CELL HGB CONCETRATION (test code=MCHC) 30.6 g/dL 33.0-37.0 RED CELL DISTRIBUTION WIDTH CV (test code=RDW) 15.9 % 11.5-14.5 RED CELL DISTRIBUTION WIDTH SD (test code=RDW-SD) 51.6 fL 37.0-54.0 PLATELET COUNT (test code=PLT) 208 x10 3/uL 150-400 MEAN PLATELET VOLUME (test code=MPV) 10.0 fL 7.0-9.0 NEUTROPHIL % (test code=NT%) 69.9 % 56.0-77.0 IMMATURE GRANULOCYTE % (test code=IG%) 0.3 % 0.0-2.0 LYMPHOCYTE % (test code=LY%) 18.6 % 14.0-32.0 MONOCYTE % (test code=MO%) 6.6 % 4.8-9.0 EOSINOPHIL % (test code=EO%) 4.2 % 0.3-3.7 BASOPHIL % (test code=BA%) 0.4 % 0.0-2.0 NUCLEATED RBC % (test code=NRBC%) 0.0 % 0-0 NEUTROPHIL # (test code=NT#) 6.84 x10 3/uL 2.0-7.6 IMMATURE GRANULOCYTE # (test code=IG#) 0.03 x10 3/uL 0.00-0.03 LYMPHOCYTE # (test code=LY#) 1.82 x10 3/uL 1.0-3.8 MONOCYTE # (test code=MO#) 0.65 x10 3/uL 0.1-0.8 EOSINOPHIL # (test code=EO#) 0.41 x10 3/uL 0.0-0.2 BASOPHIL # (test code=BA#) 0.04 x10 3/uL 0.0-0.2 NUCLEATED RBC # (test code=NRBC#) 0.00 x10 3/uL 0.0-0.1 MANUAL DIFF REQUIRED (test code=MDIFF) NO BASIC METABOLIC [id number] 10:38:00* Test Item Value Reference Range Comments SODIUM (test code=NA) 143 mEq/L 134-147 POTASSIUM (test code=K) 3.8 mEq/L 3.4-5.0 CHLORIDE (test code=CL) 110 mEq/L 100-108 CARBON DIOXIDE (test code=CO2) 28 mEq/L 21-33 ANION GAP (test code=GAP) 9 0-20 GLUCOSE (test code=GLU) 93 mg/dL 70-110 BLOOD UREA NITROGEN (test code=BUN) 8 mg/dL 7-18 GLOMERULAR FILTRATION RATE (test code=GFR) 96.7 70-80 Units of measure=ml/min/1.73 m2 CREATININE (test code=CREAT) 0.6 mg/dL 0.6-1.3 CALCIUM (test code=CA) 9.2 mg/dL 8.0-10.5 PROTHROMBIN [id number] 10:32:00* Test Item Value Reference Range Comments PROTHROMBIN TIME PATIENT (test code=PTP) 13.8 SECONDS 9.3-12.9 INTERNATIONAL NORMAL RATIO (test code=INR) 1.2 0.8-1.2 TARGET INR BY INDICATION Indication INR1. Prophylaxis of venous thrombosis 2.0 - 3.0 (orthopedic surgery), Prophylaxis of venous thrombosis (other than high-risk surgery), Treatment of Deep Vein Thrombosis/Pulmonary Embolism, Prevention of systemic embolism - Tissue heart valves, Acute Myocardial Infarction (to prevent systemic embolism), Valvular heart disease, Atrial Fibrillation, Bileaflet mechanical valve in aortic position.2. Mechanical prosthetic valves (high risk), 2.5 - 3.5 Presence of Lupus Anticoagulant or Antiphospholipid Antibodies, Prevention of systemic embolism - Acute Myocardial Infarction (to prevent recurrent infarct). - CTA ABD PEL W [id number] 15:28:00 Name: JARED PAREDES [facility] : 1940 Age/S: 78 / F [address] [place] [address] Unit #: [id number] Loc: [place] [address] Phys: Kala La MD Acct: [id number] Dis Date: Status: REG CLI PHONE #: [phone] Exam Date: 02/24/2019 1407 FAX #: [phone] Reason: AORTIC STENOSIS EXAMS: CPT CODE: [id number] CTA ABD PEL W CONT 86710 CHEST, ABDOMEN AND PELVIS, AND CORONARY ARTERY CT ANGIOGRAM WITH AND WITHOUT IV CONTRAST WITH MULTIPLANAR REFORMATS AND 3D RECONSTRUCTIONS (TAVR PROTOCOL). CLINICAL HISTORY: Aortic stenosis. COMPARISON STUDIES: None. ADMINISTERED CONTRAST: 100 mL of Isovue 370 intravenously. DLP: 1569 mGy-cm FINDINGS: Contiguous 0.5 mm axial images of the chest, abdomen and pelvis were obtained with IV contrast using the CT angiogram protocol. High-resolution coronary artery imaging is also provided. The acquired data was used to create 5 mm axial reconstructions coronal reformatted images and 3-D reconstructions with the use of the Workstation. CTA CHEST: Estimated aortic diameters are as follows: Aortic annulus: 2.5 cm Aortic root: 3.4 cm Sinotubular junction: 3.2 cm Right cusp height (to RCA takeoff): 1.9 cm Left cusp height (to Left main takeoff): 1.0 cm Mid ascending aorta: 3.4 cm Mid transverse arch: 2.7 cm Descending thoracic aorta at the level of the pulmonary arteries: 2.6 cm There is no thoracic aortic dissection. Mild calcified plaque noted at the great vessel origins. Unable to establish right axillary artery patency on this study, primarily due to extensive injection venous contamination the morning artifact. The left subclavian and axillary arteries are patent. LUNGS AND PLEURA: The lungs are clear. No pleural abnormality. MEDIASTINUM: The mediastinal contents are unremarkable. No adenopathy. CTA ABDOMEN AND PELVIS:Estimated aortoiliac/iliofemoral arterial diameters are as follows: PAGE 1 Signed Report (CONTINUED) Name: JARED PAREDES [facility] : 1940 Age/S: 78 / F [address] [place] [address] Blvd Unit #: [id number] Loc: [place] [address] Phys: Kala La MD Acct: [id number] Dis Date: Status: REG CLI PHONE #: [phone] Exam Date: 02/24/2019 1409 FAX #: [phone] Reason: AORTIC ST ENOSIS EXAMS: CPT CODE: [id number] CTA ABD PEL W CONT [id number] <Continued> Abdominal aorta just below the renal arteries: 1.8 cm Distal abdominal aorta at iliac bifurcation: 1.6 cm Right common iliac artery: 1.1 cm Left common iliac artery: 1.1 cm Right common femoral artery: 1.0 cm Left common femoral artery: 0.9 cm There are 2 right and 2 left renal arteries. Hemodynamically significant stenosis noted at the main right renal artery. Celiac axis origin, SMA, MEGHNA are patent. SOFT TISSUES: BOWEL: There is mild colonic diverticulosis, no evidence for diverticulitis. No small bowel obstruction. Stomach is unremarkable PERITONEUM: No free intraperitoneal fluid or air. Incidental small fat-containing umbilical hernia. RETROPERITONEUM: No adenopathy. PELVIS: Limited pelvic evaluation related to beam hardening artifact from right hip arthroplasty hardware. Previous hysterectomy. The urinary bladder is normal. CORONARY CT ANGIOGRAM: LEFT MAIN: Severe calcified plaque with hemodynamically significant stenosis distally. LEFT ANTERIOR DESCENDING: Severe calcified plaque with hemodynamically significant significant stenoses along the proximal and mid segments. A UGALDE graft to the distal LAD is patent. LEFT CIRCUMFLEX: Extensive calcified plaque with proximal hemodynamically significant, long segment stenosis. Saphenous vein graft to an obtuse marginal branch is patent. RIGHT CORONARY ARTERY: Extensive calcified plaque with multiple hemodynamically significant skip stenoses. 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 CARDIAC VALVES/CHAMBERS: Tricuspid aortic valve with moderate calcification only fluid thickening. Mild global cardiomegaly. No filling defects/thrombus within the left atrium or left atrial appendage. PERICARDIUM: The pericardial contour is preserved with no effusion, thickening or calcification. Whole-body bone windows show extensive lumbar degenerative disc and dege nerative facet change. There is no gross acute osseous abnormality IMPRESSION: 1. Tricuspid aortic valve with moderate calcific ation and thickening, consistent with history. No aneurysmal dilatation of the ascending thoracic aorta. 2. Limited evaluation of the right axillary artery related to beam hardening artifact from injection venous contamination. 3. Severe calcification involving all coronary ar teries with hemodynamically significant stenoses as described. UGALDE gra ft to the LAD, saphenous vein graft to an obtuse marginal branch are pat ent. Presumably, there is an occluded saphenous bypass graft to the rig ht coronary artery. 4. Duplicated renal arteries bilaterally. H emodynamically significant stenosis at the origin of the dominant right renal artery. 5. Small fat-containing umbilical hernia. 6. [place] koko diverticulosis, no CT evidence for diverticulitis. SL:01 at 1528 Reported and signed by: Henrique Mandujano M.D. PAGE 3 Signed Report (CONTINUED) Name: JARED PAREDES [facility] : 1940 Age/S: 78 / F [address] [place] [address] Unit #: [id number] Loc: [place] [address] Phys: Kala La MD Acct: [id number] Dis Date: Status: REG CLI PHONE #: [phone] Exam Date: 2018 1409 FAX #: [phone] Reason: AORTIC STENOSIS EXAMS: CPT CODE: [id number] CTA ABD PEL W CONT [id number] <Continued> CC: Kala La MD; Pilar Nguyen MD Technologist:Kane Winkler RT(R)(CT) CTDI: DLP: Trnscb Date/Time: 02/24/2019 (1528) t.ALEX Orig Print D/T: S: 02/24/2019 (1531) PAGE 4 Signed Report - CT ANGIO [id number] 15:28:00 Name: JARED PAREDES [facility] : 1940 Age/S: 78 / F [address] [place] [address] Unit #: [id number] Loc: [place] [address] Phys: Kala La MD Acct: [id number] Dis Date: Status: REG CLI PHONE #: [phone] Exam Date: 02/24/2019 1409 FAX #: [phone] Reason: AORTIC STENOSIS EXAMS: CPT CODE: [id number] CT ANGIO CHEST 70745 CHEST, ABDOMEN AND PELVIS, AND CORONARY ARTERY CT ANGIOGRAM WITH AND WITHOUT IV CONTRAST WITH MULTIPLANAR REFORMATS AND 3D RECONSTRUCTIONS (TAVR PROTOCOL). CLINICAL HISTORY: Aortic stenosis. COMPARISON STUDIES: None. ADMINISTERED CONTRAST: 100 mL of Isovue 370 intravenously. DLP: 1569 mGy-cm FINDINGS: Contiguous 0.5 mm axial images of the chest, abdomen and pelvis were obtained with IV contrast using the CT angiogram protocol. High-resolution coronary artery imaging is also provided. The acquired data was used to create 5 mm axial reconstructions coronal reformatted images and 3-D reconstructions with the use of the Workstation. CTA CHEST: Estimated aortic diameters are as follows: Aortic annulus: 2.5 cm Aortic root: 3.4 cm Sinotubular junction: 3.2 cm Right cusp height (to RCA takeoff): 1.9 cm Left cusp height (to Left main takeoff): 1.0 cm Mid ascending aorta: 3.4 cm Mid transverse arch: 2.7 cm Descending thoracic aorta at the level of the pulmonary arteries: 2.6 cm There is no thoracic aortic dissection. Mild calcified plaque noted at the great vessel origins. Unable to establish right axillary artery patency on this study, primarily due to extensive injection venous contamination the morning artifact. The left subclavian and axillary arteries are patent. LUNGS AND PLEURA: The lungs are clear. No pleural abnormality. MEDIASTINUM: The mediastinal contents are unremarkable. No adenopathy. CTA ABDOMEN AND PELVIS:Estimated aortoiliac/iliofemoral arterial diameters are as follows: PAGE 1 Signed Report (CONTINUED) Name: JARED PAREDES [facility] : 1940 Age/S: 78 / F [address] [place] [address] Blvd Unit #: [id number] Loc: [place] [address] Phys: Kala La MD Acct: [id number] Dis Date: Status: REG CLI PHONE #: [phone] Exam Date: 02/24/2019 1409 FAX #: [phone] Reason: AORTIC STENOSIS EXAMS: CPT CODE: [id number] CT ANGIO CHEST 74049 <Continued> Abdominal aorta just below the renal arteries: 1.8 cm Distal abdominal aorta at iliac bifurcation: 1.6 cm Right common iliac artery: 1.1 cm Left common iliac artery: 1.1 cm Right common femoral artery: 1.0 cm Left common femoral artery: 0.9 cm There are 2 right and 2 left renal arteries. Hemodynamically significant stenosis noted at the main right renal artery. Celiac axis origin, SMA, MEGHNA are patent. SOFT TISSUES: BOWEL: There is mild colonic diverticulosis, no evidence for diverticulitis. No small bowel obstruction. Stomach is unremarkable PERITONEUM: No free intraperitoneal fluid or air. Incidental small fat-containing umbilical hernia. RETROPERITONEUM: No adenopathy. PELVIS: Limited pelvic evaluation related to beam hardening artifact from right hip arthroplasty hardware. Previous hysterectomy. The urinary bladder is normal. CORONARY CT ANGIOGRAM: LEFT MAIN: Severe calcified plaque with hemodynamically significant stenosis distally. LEFT ANTERIOR DESCENDING: Severe calcified plaque with hemodynamically significant significant stenoses along the proximal and mid segments. A UGALDE graft to the distal LAD is patent. LEFT CIRCUMFLEX: Extensive calcified plaque with proximal hemodynamically significant, long segment stenosis. Saphenous vein graft to an obtuse marginal branch is patent. RIGHT CORONARY ARTERY: Extensive calcified plaque with multiple hemodynamically significant skip stenoses. Infundibulum along the right side of the ascending PAGE 2 Signed Report (CONTINUED) Name: JARED PAREDES [facility] : 1940 Age/S: 78 / F [address] [place] [address] Blvd Unit #: [id number] Loc: [place] [address] Phys: Ab kayley La MD Acct: [id number] Di s Date: Status: REG CLI PHONE #: Exam Date: 02/24/2019 1400 FAX #: Reason: AORTIC STENOSIS EXAMS: CPT CODE: [id number] CT ANGIO CHEST 71313 <Continued> thoracic aorta presumably represents an occluded right coronary artery saphenous bypass graft. CARDIAC VALVES/CHAMBERS: Tricuspid aortic valve with moderate calcification only fluid thickening. Mild global cardiomegaly. No filling defects/thrombus within the left atrium or left atrial appendage. PERICARDIUM: The pericardial contour is preserved with no effusion, thickening or calcification. Whole-body bone windows show extensive lumbar degenerative disc and dege nerative facet change. There is no gross acute osseous abnormality IMPRESSION: 1. Tricuspid aortic valve with moderate calcific ation and thickening, consistent with history. No aneurysmal dilatation of the ascending thoracic aorta. 2. Limited evaluation of the right axillary artery related to beam hardening artifact from injection venous contamination. 3. Severe calcification involving all coronary ar teries with hemodynamically significant stenoses as described. UGALDE gra ft to the LAD, saphenous vein graft to an obtuse marginal branch are pat ent. Presumably, there is an occluded saphenous bypass graft to the rig ht coronary artery. 4. Duplicated renal arteries bilaterally. H emodynamically significant stenosis at the origin of the dominant right renal artery. 5. Small fat-containing umbilical hernia. 6. [place] koko diverticulosis, no CT evidence for diverticulitis. SL:01 at 1528 Reported and signed by: Henrique Mandujano M.D. PAGE 3 Signed Report (CONTINUED) Name: JARED PAREDES [facility] : 1940 Age/S: 78 / F [address] [place] [address] Unit #: [id number] Loc: [place] [address] Phys: Kala La MD Acct: [id number] Dis Date: Status: REG CLI PHONE #: [phone] Exam Date: 2018 140 FAX #: [phone] Reason: AORTIC STENOSIS EXAMS: CPT CODE: [id number] CT ANGIO CHEST [address]402 <Continued> CC: Kala La MD; Pilar Nguyen MD Technologist:Kane Winkler RT(R)(CT) CTDI: DLP: Trnscb Date/Time: 02/24/2019 (1527) t.ALEX Orig Print D/T: S: 02/24/2019 (1531) PAGE 4 Signed Report - CT HEART W CN STR MOR [id number] 15:28:00 Name: JARED PAREDES [facility] : 1940 Age/S: 78 / F [address] [place] [address] Unit #: [id number] Loc: [place] [address] Phys: Kala La MD Acct: [id number] Dis Date: Status: REG CLI PHONE #: [phone] Exam Date: 02/24/2019 140 FAX #: [phone] Reason: AORTIC STENOSIS EXAMS: CPT CODE: [id number] [place] [id number] CHEST, ABDOMEN AND PELVIS, AND CORONARY ARTERY CT ANGIOGRAM WITH AND WITHOUT IV CONTRAST WITH MULTIPLANAR REFORMATS AND 3D RECONSTRUCTIONS (TAVR PROTOCOL). CLINICAL HISTORY: Aortic stenosis. COMPARISON STUDIES: None. ADMINISTERED CONTRAST: 100 mL of Isovue 370 intravenously. DLP: 1569 mGy-cm FINDINGS: Contiguous 0.5 mm axial images of the chest, abdomen and pelvis were obtained with IV contrast using the CT angiogram protocol. High-resolution coronary artery imaging is also provided. The acquired data was used to create 5 mm axial reconstructions coronal reformatted images and 3-D reconstructions with the use of the Workstation. CTA CHEST: Estimated aortic diameters are as follows: Aortic annulus: 2.5 cm Aortic root: 3.4 cm Sinotubular junction: 3.2 cm Right cusp height (to RCA takeoff): 1.9 cm Left cusp height (to Left main takeoff): 1.0 cm Mid ascending aorta: 3.4 cm Mid transverse arch: 2.7 cm Descending thoracic aorta at the level of the pulmonary arteries: 2.6 cm There is no thoracic aortic dissection. Mild calcified plaque noted at the great vessel origins. Unable to establish right axillary artery patency on this study, primarily due to extensive injection venous contamination the morning artifact. The left subclavian and axillary arteries are patent. LUNGS AND PLEURA: The lungs are clear. No pleural abnormality. MEDIASTINUM: The mediastinal contents are unremarkable. No adenopathy. CTA ABDOMEN AND PELVIS:Estimated aortoiliac/iliofemoral arterial diameters are as follows: PAGE 1 Signed Report (CONTINUED) Name: JARED PAREDES [facility] : 1940 Age/S: 78 / F [address] [place], [place] [address]vd Unit #: [id number] Loc: [place] [address] Phys: Kala La MD Acct: [id number] Dis Date: Status: REG CLI PHONE #: [phone] Exam Date: 02/24/2019 1400 FAX #: [phone] Reason: AORTIC STENOSIS EXAMS: CPT CODE: [id number] CT HEART W CN STR MOR [facility] [address] <Continued> Abdominal aorta just below the renal arteries: 1.8 cm Distal abdominal aorta at iliac bifurcation: 1.6 cm Right common iliac artery: 1.1 cm Left common iliac artery: 1.1 cm Right common femoral artery: 1.0 cm Left common femoral artery: 0.9 cm There are 2 right and 2 left renal arteries. Hemodynamically significant stenosis noted at the main right renal artery. Celiac axis origin, SMA, MEGHNA are patent. SOFT TISSUES: BOWEL: There is mild colonic diverticulosis, no evidence for diverticulitis. No small bowel obstruction. Stomach is unremarkable PERITONEUM: No free intraperitoneal fluid or air. Incidental small fat-containing umbilical hernia. RETROPERITONEUM: No adenopathy. PELVIS: Limited pelvic evaluation related to beam hardening artifact from right hip arthroplasty hardware. Previous hysterectomy. The urinary bladder is normal. CORONARY CT ANGIOGRAM: LEFT MAIN: Severe calcified plaque with hemodynamically significant stenosis distally. LEFT ANTERIOR DESCENDING: Severe calcified plaque with hemodynamically significant significant stenoses along the proximal and mid segments. A UGALDE graft to the distal LAD is patent. LEFT CIRCUMFLEX: Extensive calcified plaque with proximal hemodynamically significant, long segment stenosis. Saphenous vein graft to an obtuse marginal branch is patent. RIGHT CORONARY ARTERY: Extensive calcified plaque with multiple hemodynamically significant skip stenoses. Infundibulum along the right side of the ascending PAGE 2 Signed Report (CONTINUED) Name: JARED PAREDES [facility] : 1940 Age/S: 78 / F [address] [place] [address] Blvd Unit #: [id number] Loc: [place] [address] Phys: Ab kayley La MD Acct: [id number] Di s Date: Status: REG CLI PHONE #: Exam Date: 02/24/2019 1402 FAX #: Reason: AORTIC STENOSIS EXAMS: CPT CODE: [id number] CT HEART W CN STR MOR [facility] [address] <Continued> thoracic aorta presumably represents an occluded right coronary artery saphenous bypass graft. CARDIAC VALVES/CHAMBERS: Tricuspid aortic valve with moderate calcification only fluid thickening. Mild global cardiomegaly. No filling defects/thrombus within the left atrium or left atrial appendage. PERICARDIUM: The pericardial contour is preserved with no effusion, thickening or calcification. Whole-body bone windows show extensive lumbar degenerative disc and dege nerative facet change. There is no gross acute osseous abnormality IMPRESSION: 1. Tricuspid aortic valve with moderate calcific ation and thickening, consistent with history. No aneurysmal dilatation of the ascending thoracic aorta. 2. Limited evaluation of the right axillary artery related to beam hardening artifact from injection venous contamination. 3. Severe calcification involving all coronary ar teries with hemodynamically significant stenoses as described. UGALDE gra ft to the LAD, saphenous vein graft to an obtuse marginal branch are pat ent. Presumably, there is an occluded saphenous bypass graft to the rig ht coronary artery. 4. Duplicated renal arteries bilaterally. H emodynamically significant stenosis at the origin of the dominant right renal artery. 5. Small fat-containing umbilical hernia. 6. [place] koko diverticulosis, no CT evidence for diverticulitis. SL:01 at 1528 Reported and signed by: Henrique Mandujano M.D. PAGE 3 Signed Report (CONTINUED) Name: JARED PAREDES [facility] : 1940 Age/S: 78 / F [address] [place] [address] Blvd Unit #: [id number] Loc: [place] [address] Phys: Kala La MD Acct: [id number] Dis Date: Status: REG CLI PHONE #: [phone] Exam Date: 2018 1409 FAX #: [phone] Reason: AORTIC STENOSIS EXAMS: CPT CODE: [id number] CT HEART W CN STR MOR [facility] [address] <Continued> CC: Kala La MD; Pilar Nguyen MD Technologist:Kane Winkler, RT(R)(CT) CTDI: DLP: Trnscb Date/Time: 02/24/2019 (1528) Carol Orig Print D/T: S: 02/24/2019 (1531) PAGE 4 Signed Report BASIC METABOLIC PANEL 2019-02-24 13:56:00* Test Item Value Reference Range Comments SODIUM (test code=NA) 141 mEq/L 134-147 POTASSIUM (test code=K) 4.2 mEq/L 3.4-5.0 CHLORIDE (test code=CL) 108 mEq/L 100-108 CARBON DIOXIDE (test code=CO2) 28 mEq/L 21-33 ANION GAP (test code=GAP) 9 0-20 GLUCOSE (test code=GLU) 82 mg/dL 70-110 BLOOD UREA NITROGEN (test code=BUN) 12 mg/dL 7-18 GLOMERULAR FILTRATION RATE (test code=GFR) 96.7 70-80 Units of measure=ml/min/1.73 m2 CREATININE (test code=CREAT) 0.6 mg/dL 0.6-1.3 CALCIUM (test code=CA) 9.4 mg/dL 8.0-10.5 - XR CHEST 2 [id number] 12:47:00 FAX: Pilar Dolan MD [phone] [place]: St: PRE FAX: Rocky Lloyd [phone] Name: JARED PAREDES [facility] : 1940 Age/S: 78/F [address] [place] [address] Blvd Unit #: [id number] Loc: [place] [address] Phys: Rocky Romeo MD Acct: [id number] Dis Date: Status: PRE SDC PHONE #: [phone] Exam Date: 02/08/2019 1204 FAX #: [phone] Reason: AORTIC STENOSIS EXAMS: CPT CODE: [id number] XR CHEST 2 V 39506 PROCEDURE: - XR CHEST 2 V INDICATION: 78 years Female, AORTIC STENOSIS. Chest pain COMPARISON: Chest x-ray 08/08/2017 FINDINGS: Stable postoperative mediastinum with median sternotomy wires. Stable ectasia of the thoracic aorta. Cardiac silhouette is stable. No lobar consolidation, effusion, or pneumothorax. Chronic healed left proximal humeral neck fracture. No acute osseous abnormalities. IMPRESSION: No acute findings. SL: [id number] at 124 Reported and signed by: José Miguel Tapia M.D. CC: Pilar Nguyen MD; Rocky Romeo MD Technologist: RT Annette(R) Trnscrd Date/Time/By: 02/08/2019 (6404) : By: [email or web address] Orig Print D/T: S: 02/08/2019 (6690) PAGE 1 Signed Report BASIC METABOLIC [id number] 12:22:00* Test Item Value Reference Range Comments SODIUM (test code=NA) 140 mEq/L 134-147 POTASSIUM (test code=K) 3.9 mEq/L 3.4-5.0 CHLORIDE (test code=CL) 109 mEq/L 100-108 CARBON DIOXIDE (test code=CO2) 26 mEq/L 21-33 ANION GAP (test code=GAP) 9 0-20 GLUCOSE (test code=GLU) 72 mg/dL 70-110 BLOOD UREA NITROGEN (test code=BUN) 12 mg/dL 7-18 GLOMERULAR FILTRATION RATE (test code=GFR) 96.7 70-80 Units of measure=ml/min/1.73 m2 CREATININE (test code=CREAT) 0.6 mg/dL 0.6-1.3 CALCIUM (test code=CA) 9.3 mg/dL 8.0-10.5 PROTHROMBIN [id number] 12:12:00* Test Item Value Reference Range Comments PROTHROMBIN TIME PATIENT (test code=PTP) 12.9 SECONDS 9.3-12.9 INTERNATIONAL NORMAL RATIO (test code=INR) 1.1 0.8-1.2 TARGET INR BY INDICATION Indication INR1. Prophylaxis of venous thrombosis 2.0 - 3.0 (orthopedic surgery), Prophylaxis of venous thrombosis (other than high-risk surgery), Treatment of Deep Vein Thrombosis/Pulmonary Embolism, Prevention of systemic embolism - Tissue heart valves, Acute Myocardial Infarction (to prevent systemic embolism), Valvular heart disease, Atrial Fibrillation, Bileaflet mechanical valve in aortic position.2. Mechanical prosthetic valves (high risk), 2.5 - 3.5 Presence of Lupus Anticoagulant or Antiphospholipid Antibodies, Prevention of systemic embolism - Acute Myocardial Infarction (to prevent recurrent infarct). CBC W/AUTO [id number] 12:07:00* Test Item Value Reference Range Comments WHITE BLOOD CELL (test code=WBC) 8.77 x10 3/uL 4.5-11.0 RED BLOOD CELL (test code=RBC) 4.62 x10 6/uL 3.54-5.02 HEMOGLOBIN (test code=HGB) 12.4 g/dL 11.0-15.0 HEMATOCRIT (test code=HCT) 39.8 % 33.0-45.0 MEAN CELL VOLUME (test code=MCV) 86.1 fL 81.0-99.0 MEAN CELL HGB (test code=MCH) 26.8 pg 27.0-33.0 MEAN CELL HGB CONCETRATION (test code=MCHC) 31.2 g/dL 33.0-37.0 RED CELL DISTRIBUTION WIDTH CV (test code=RDW) 15.9 % 11.5-14.5 RED CELL DISTRIBUTION WIDTH SD (test code=RDW-SD) 49.7 fL 37.0-54.0 PLATELET COUNT (test code=PLT) 245 x10 3/uL 150-400 MEAN PLATELET VOLUME (test code=MPV) 9.8 fL 7.0-9.0 NEUTROPHIL % (test code=NT%) 60.0 % 56.0-77.0 IMMATURE GRANULOCYTE % (test code=IG%) 0.3 % 0.0-2.0 LYMPHOCYTE % (test code=LY%) 28.6 % 14.0-32.0 MONOCYTE % (test code=MO%) 7.3 % 4.8-9.0 EOSINOPHIL % (test code=EO%) 3.5 % 0.3-3.7 BASOPHIL % (test code=BA%) 0.3 % 0.0-2.0 NUCLEATED RBC % (test code=NRBC%) 0.0 % 0-0 NEUTROPHIL # (test code=NT#) 5.25 x10 3/uL 2.0-7.6 IMMATURE GRANULOCYTE # (test code=IG#) 0.03 x10 3/uL 0.00-0.03 LYMPHOCYTE # (test code=LY#) 2.51 x10 3/uL 1.0-3.8 MONOCYTE # (test code=MO#) 0.64 x10 3/uL 0.1-0.8 EOSINOPHIL # (test code=EO#) 0.31 x10 3/uL 0.0-0.2 BASOPHIL # (test code=BA#) 0.03 x10 3/uL 0.0-0.2 NUCLEATED RBC # (test code=NRBC#) 0.00 x10 3/uL 0.0-0.1 MANUAL DIFF REQUIRED (test code=MDIFF) NO CT LUMBAR SPINE [place] [address] Patient Name: JARED PAREDES MR #: [id number] : 1940 Age/Sex: 77/F Req #: [id number] Adm Physician: Ordered by: LUCIANO SAUCEDO MD Report #: [id number] Location: ER Room/Bed: Procedure: [id number] CT/CT LUMBAR SPINE KEENA rocha Date: 03/24/18 Exam Time: 1740 REPORT STATUS: Signed History: Fall Comparison studies: None Technique:: Axial we re obtained through the thoracic and lumbar regions. Coronal and sagittal imag es reconstructed from the axial data. Intravenous contrast: None Findings : Alignment: Normal thoracic kyphosis. Grade 1 anterolisthesis f L4-5. Nor mal remaining lumbar lordosis.. mIld lumbar dextroscoliosis. Soft tissues: N o acute abnormalities. Atherosclerotic calcifications of the aorta and branche s. Paraspinal muscles: Fatty infiltration with moderate atrophy. Spinal co rd: Can not be evaluated. Vertebrae: No fractures, infection or neoplas m . Thoracic degenerative changes: Disc degeneration with decreased inter vertebral space from C7-T11. Patent canal and foramina. Lumbar degenerati ve changes: Disc degeneration with decreased intervertebral space from L1- 5. Vacuum disc phenomenon from L1- 4. Diffuse disc bulge and posterior element hypertrophy results in moderate canal stenosis and moderate bilateral foramina l narrowing from L2-5. Degenerative changes at the lower cervical spine par tially visualized. IMPRESSION: 1. No acute abnormality of the thoraci c or lumbar spine. Degenerative changes as described. 2. Cannot exclude lig ament, spinal cord and or vascular abnormalities on the basis of this examinat ion Signed by: DR Too Winkler M.D. on 03/24/2018 9:58 PM Dic tated By: TOO LEONE MD 57 Transcribed By: DORA on 03/24/182157 COPY TO: LUCIANO YAO MD CT THORACIC SPINE WO [place] [address] [place] [address] Patient Name: JARED PAREDES MR #: [id number] : 1940 Age/Sex: 77/F Req #: [id number] Adm Physician: Ordered by: LUCIANO SAUCEDO MD Report #: [id number] Location: ER Room/Bed: Procedure: [id number] CT/CT THORACIC SPINE WO E xam Date: 03/24/18 Exam Time: 1740 REPORT STATU S: Signed History: Fall Comparison studies: None Technique:: Axial were obtained through the thoracic and lumbar regions. Coronal and sagittal im ages reconstructed from the axial data. Intravenous contrast: None Findin gs: Alignment: Normal thoracic kyphosis. Grade 1 anterolisthesis f L4-5. N ormal remaining lumbar lordosis.. mIld lumbar dextroscoliosis. Soft tissues: No acute abnormalities. Atherosclerotic calcifications of the aorta and branc hes. Paraspinal muscles: Fatty infiltration with moderate atrophy. Spinal cord: Can not be evaluated. Vertebrae: No fractures, infection or neopl asm . Thoracic degenerative changes: Disc degeneration with decreased int ervertebral space from C7-T11. Patent canal and foramina. Lumbar degenera tive changes: Disc degeneration with decreased intervertebral space from L1- 5 . Vacuum disc phenomenon from L1- 4. Diffuse disc bulge and posterior elemen t hypertrophy results in moderate canal stenosis and moderate bilateral forami nal narrowing from L2-5. Degenerative changes at the lower cervical spine p artially visualized. IMPRESSION: 1. No acute abnormality of the thora cic or lumbar spine. Degenerative changes as described. 2. Cannot exclude l igament, spinal cord and or vascular abnormalities on the basis of this examin ation Signed by: DR Too Winkler M.D. on 03/24/2018 9:58 PM D ictated By: TOO LOENE MD 57 Transcribed By: DORA on 03/24/182157 COPY TO: LUCIANO LAM MD
[2019-05-05 14:26] LABS: BASOPHILS % 0.3 % (0.0-1.0); EOSINOPHILS % 0.3 % (0.0-6.0); HEMATOCRIT 40.3 % (34.2-44.1); HEMOGLOBIN 11.4 g/dL (12.0-16.0); LYMPHOCYTES # (AUTO) 0.7 (1.0-3.2); LYMPHOCYTES % 9.1 % (18.0-39.1); MEAN CORPUSCULAR HEMOGLOBIN 24.9 pg (28-32); MEAN CORPUSCULAR HGB CONC 28.3 g/dL (31-35); MONOCYTES # (AUTO) 0.8 (0.2-0.8); MONOCYTES % 10.9 % (4.4-11.3); NEUTROPHILS # (AUTO) 6.1 (2.1-6.9); NEUTROPHILS % 78.9 % (38.7-80.0); PLATELET COUNT 51 x10e3/uL (140-360); RED BLOOD COUNT 4.58 x10e6/uL (3.6-5.1); RED CELL DISTRIBUTION WIDTH 17.2 % (11.7-14.4)
[2019-05-05 14:32] LABS: INR 1.84; PROTHROMBIN TIME 21.9 seconds (11.9-14.5)
[2019-05-05 14:43] LABS: ALBUMIN 3.3 g/dL (3.5-5.0); ALBUMIN/GLOBULIN RATIO 0.9 (0.8-2.0); ANION GAP 15.3 mmol/L (8-16); CREATININE, SERUM 1.46 mg/dL (0.57-1.11); POTASSIUM 3.3 mmol/L (3.5-5.1)
[2019-05-05 14:52] LABS: CREATINE KINASE MB 2.8 ng/mL (0-5.0)
--- NOTE | 2019-05-05 15:04 | Diagnostic Imaging Report ---
EXAM: CHEST SINGLE (PORTABLE) DATE: 05/05/2019 1:55 PM INDICATION: ^AMS ^[id number] ^1407 ^Y COMPARISON: None FINDINGS: Lines and tubes: None Cardiac silhouette is slightly enlarged. Prosthetic aortic valve noted. There is patchy airspace opacity in the right upper lobe. There is central pulmonary vascular prominence. No large pleural effusion or pneumothorax. Upper abdomen unremarkable. Wire sternotomy sutures are noted. IMPRESSION: Cardiomegaly and pulmonary vascular prominence. Airspace opacity in the right upper lobe may be related to edema or pneumonia. Signed by: Dr. Eliezer Collier M.D. on 05/05/2019 3:01 PM
[2019-05-05 15:14] LABS: BILIRUBIN,URINE NEGATIVE (NEGATIVE); CLARITY,URINE SL CLOUDY (CLEAR); COLOR,URINE YELLOW (YELLOW); KETONES,URINE NEGATIVE (NEGATIVE); LEUKOCYTE ESTERASE ,URINE NEGATIVE (NEGATIVE); NITRITE,URINE NEGATIVE (NEGATIVE); PROTEIN,URINE DIPSTICK 1+ (NEGATIVE); URINE UROBILINOGEN 0.2 mg/dL (0.2 - 1)
[2019-05-05 15:28] LABS: AMORPHOUS SEDIMENT,URINE MODERATE (FEW); BACTERIA,URINE MANY /HPF
[2019-05-05] MEDS: LACTULOSE SYRUP 20 GM/30 ML UDC NG SCH (16:45)
[2019-05-05] MEDS ORDERED: DEXTROSE 50% SYRINGE 50 ML IV PRN (17:00)
[2019-05-05] MEDS ORDERED: SODIUM CHLORIDE 0.9% 500ML 500 ML IV ONE (17:15)
[2019-05-05] MEDS ORDERED: SODIUM CHLORIDE 0.9% 1000ML 1,000 ML IV SCH (17:15)
--- NOTE | 2019-05-05 18:07 | NUR ---
History and PHysical cc; altered mental state HPI: 78yoF, [facility] resident, developed reduced responsiveness, brought to ER, found to have PNA and acute hepatitis with hyperammonemia and confusion. PMH: E.coli UTI, Dementia, Chr systolic CHF, HLD, breast CA, Hypertensive heart ds, DM2, Chr pain, constipationi, insomnia, CAD s/p CABG, DM-neuropathy PSHx: CABG; right hip; right knee Allergies; see MAR FH: unknown SH: currently resident here at [place]; no etoh/cigs/illicits currently Meds; see MAR ROS: unobtainable v/s; revd PE: tired appearing not interactive atraumatic ns1s2 reduced bs soft nt nd no e/t flat affect confused; not following commands labs/meds; revd A/P: 78yoF Right HAP AMS/TYSON Thrombocytopenia Acute hepatitis Hyperammonemia Hypokalemia Hypernatremia Dehydration JEROD CAD Chr systolic CHF- monitor with fluids Hypertensive heart ds DM2 PLAN IV vanco/cefepime IVF SCD Lactulose hepatitis panel Hba1c/lipids Danielito Mckeon MD, PhD
--- NOTE | 2019-05-05 18:12 | Diagnostic Imaging Report ---
Exam: KUB. Clinical History: NG tube placement. Comparison: None Findings: Frontal view of the abdomen demonstrates a nonobstructive bowel gas pattern with moderate retained stool. Numerous wires/leads overlie the upper abdomen. Possible NG tube with distal tip over the gastroesophageal junction region. Impression: Numerous wires/leads overlie the upper abdomen. Possible NG tube with distal tip over the gastroesophageal junction region. Signed by: Dr. Compa Green M.D. on 05/05/2019 6:09 PM
[2019-05-05 18:24] LABS: CHOL/HDL RATIO 4.5 (3.0-3.6)
[2019-05-05] MEDS ORDERED: SODIUM CHLORIDE 0.45% 1,000 ML IV ONE (18:45)
[2019-05-05] MEDS: CEFEPIME 1GM/NS 0.9% 50 ML 50 ML IV SCH (20:30)
--- NOTE | 2019-05-05 20:30 | NUR ---
NG TUBE ADVANCED 3 INCHES - WAITING FOR KUB FOR PLACEMENT VERIFICATION
[2019-05-05] MEDS: INSULIN REGULAR, HUMAN 100 UNIT/1 ML 3ML VIAL SQ SCH (21:00)
--- NOTE | 2019-05-05 21:50 | NUR ---
Received patient via stretcher from the E.R. IV in place. NGT intact to right nares. Patient is accompanied by family member.
[2019-05-05] MEDS: VANCOMYCIN 1GM/NS 250 ML 250 ML IV SCH (22:41)
[2019-05-05 23:07] VITALS: BP 134/57
--- NOTE | 2019-05-05 23:09 | Diagnostic Imaging Report ---
RADIOGRAPH(S) OF THE ABDOMEN AND PELVIS, 1 view(s) HISTORY: Check NG tube placement COMPARISON: Abdominal radiograph May 05, 2019 FINDINGS: Soft tissue attenuation partially limits sensitivity of the exam. Overlying artifacts. Oblique projection. The exam is centered on the left abdomen. No specific evidence of obstruction or ileus. The bones are partially obscured by stool and overlying bowel gas. Partially visualized right hip arthroplasty. Diffuse scattered atherosclerotic vascular calcifications. IMPRESSION: Partially visualized NG tube below the level of the diaphragm, the side port projects in the expected region of the distal stomach, the more distal tip is not definitively included within the [id number]. Signed by: Dr. Christo Salmeron D.O., M.M.M. on 05/05/2019 11:05 PM
[2019-05-06] VITALS (7 sets, daily range): BP systolic 122–151; BP diastolic 56–71
--- NOTE | 2019-05-06 00:04 | NUR ---
dr. salguero notify of kub result. ordered NGT ok to use.
--- NOTE | 2019-05-06 05:48 | NUR ---
Patient is combative, unable to insert NGT.
--- NOTE | 2019-05-06 05:48 | NUR ---
patient pulled out NGT.
[2019-05-06] MEDS: LACTULOSE SYRUP 20 GM/30 ML UDC NG SCH ×2 (06:00)
--- NOTE | 2019-05-06 06:34 | NUR ---
Dr. Mckeon notified of ammonia result and patient being combative.
[2019-05-06 07:03] LABS: BASOPHILS % 0.2 % (0.0-1.0); EOSINOPHILS # (AUTO) 0.1 (0.0-0.4); HEMATOCRIT 41.9 % (34.2-44.1); HEMOGLOBIN 11.3 g/dL (12.0-16.0); LYMPHOCYTES # (AUTO) 0.8 (1.0-3.2); LYMPHOCYTES % 8.9 % (18.0-39.1); MEAN CORPUSCULAR HEMOGLOBIN 24.5 pg (28-32); MEAN CORPUSCULAR VOLUME 90.7 fL (81-99); MONOCYTES # (AUTO) 1.2 (0.2-0.8); NEUTROPHILS % 76.6 % (38.7-80.0); RED BLOOD COUNT 4.62 x10e6/uL (3.6-5.1); RED CELL DISTRIBUTION WIDTH 17.2 % (11.7-14.4)
--- NOTE | 2019-05-06 07:13 | NUR ---
New orders received from Dr. Mckeon to transfer patient to ICU to place mittens.
[2019-05-06 07:20] LABS: PLATELET COUNT 41 x10e3/uL (140-360)
[2019-05-06 07:23] LABS: ANION GAP 14.9 mmol/L (8-16); CALCIUM 9.8 mg/dL (8.4-10.2); CREATININE, SERUM 1.08 mg/dL (0.57-1.11)
[2019-05-06 07:27] LABS: POTASSIUM 2.9 mmol/L (3.5-5.1)
[2019-05-06] MEDS: INSULIN REGULAR, HUMAN 100 UNIT/1 ML 3ML VIAL SQ SCH ×4 (07:30→20:00)
--- NOTE | 2019-05-06 07:44 | NUR ---
RECEIVED PATIENT AWAKE RESTING IN BED. NO DISTRESS AT THIS TIME. BED LOW, WHEELS LOCKED, SIDE RAILS UP X4, BED ALARM SET. CALL LIGHT IN REACH WILL CONTINUE TO MONITOR PATIENT.
--- NOTE | 2019-05-06 07:49 | NUR ---
NOTIFIED DR. HART REGARDING PLT COUNT 41 AND POTASSIUM 2.9 ORDER FOR 20 MEQ POTASSIUM IV ONCE. NEW ORDERS IMPLEMENTED.
--- NOTE | 2019-05-06 07:55 | Consultation ---
DATE OF CONSULTATION: 05/06/2019 Pulmonary Critical Care Consultation CHIEF COMPLAINT: Altered mental status. HISTORY OF PRESENT ILLNESS: The patient is a 78-year-old woman with a history of a prior coronary artery bypass grafting and chronic heart problems. She has been staying at [facility] because of diffuse weakness and failure to thrive. She started having increased confusion yesterday and became more somnolent. There are no reported fevers. She was transferred to the emergency department and subsequently found to have an infiltrate consistent with pneumonia. She was admitted and started on antibiotics. PAST MEDICAL HISTORY: 1. Hypertension. 2. Diabetes. 3. Congestive heart failure. SOCIAL HISTORY: No history of alcohol or drug use. She has very good family support. She stays at [facility]. PAST SURGICAL HISTORY: 1. Status post coronary artery bypass grafting x4. 2. Status post valve replacement. 3. History of a prior shoulder surgery. ALLERGIES: NO KNOWN DRUG ALLERGIES. FAMILY HISTORY: Family history is noncontributory. REVIEW OF SYSTEMS: No history of fever. There is no headache. She has no neck pain. She has no chest pain. She does have some congestion. There is no nausea or vomiting. She has increased confusion. She has no leg edema. She does not report any focal neurological abnormalities, although she does have increased confusion. PHYSICAL EXAMINATION: VITAL SIGNS: The blood pressure is 122/56 and the pulse is 88. The saturation is 99%. HEENT: Shows no facial swelling or erythema. LYMPHATIC: Normal. CARDIAC: Reveals a regular rate and rhythm with a systolic murmur. Auscultation of lungs reveals a few crackles at the bases. There is no wheezing. ABDOMEN: Soft and nontender. There is no rebound or guarding. EXTREMITIES: There is no leg edema or calf tenderness. There is no cyanosis or clubbing. SKIN: Shows no rashes. LABORATORY DATA: White blood cell count is 7.7 and hemoglobin is 11.4. The platelet count is 51. The sodium is 149 and the BUN to creatinine ratio is 58 to 1.46. Total bilirubin is 2.3. AST is 1167 and the ALT is 576. The INR is 1.84. IMPRESSION: 1. Metabolic encephalopathy. 2. 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 3. Chronic liver disease. 4. Right upper lobe pneumonia with sepsis, present on admission. 5. Thrombocytopenia. 6. Moderate protein-calorie malnutrition. PLAN: 1. Hold Lasix and consider intravenous fluids. 2. Antibiotics. 3. Echocardiogram. 4. Ammonia level and liver evaluation. 5. Continue to monitor platelets and creatinine. 6. Obtain old records. 7. Discussed case with Dr. Mckeon and Cardiology. MD MARISOL Rose/MODL /[id number]
[2019-05-06] MEDS: LACTULOSE SYRUP 20 GM/30 ML UDC PO SCH ×3 (08:31→22:00)
[2019-05-06] MEDS ORDERED: SODIUM CHLORIDE 0.9% 250ML 250 ML ONE ×2 (08:55→17:48)
--- NOTE | 2019-05-06 08:55 | NUR ---
PATIENT A/O X1. EVEN RESPIRATIONS ON RA. BOWEL SOUNDS ACTIVE, SKIN INTACT, NO EDEMA. RIGHT FA 24 GAUGE AND LEFT FA 20 GAUGE IV. IV INTACT/PATENT. 1/2 NS GOING @ 100 CC/HR. VITAL SIGNS STABLE AT THIS TIME. BED LOW, WHEELS LOCKED, SIDE RAILS X2. FAMILY AT BEDSIDE. WILL CONTINUE TO MONITOR PATIENT.
[2019-05-06] MEDS ORDERED: POTASSIUM CHLORIDE 20MEQ/100ML 100 ML IV ONE (09:00)
--- NOTE | 2019-05-06 14:00 | NUR ---
SPOKE WITH DR. HART REGARDING PATIENT ABLE TO SWALLOW MORNING LACTULOSE. NEW ORDER FOR CLEAR LIQUID DIET. NEW ORDERS IMPLEMENTED.
--- NOTE | 2019-05-06 14:40 | NUR ---
REMOVED RIGHT FA 24 GAUGE IV. NEW IV STARTED TO LEFT HAND 22 GAUGE. IV INTACT/PATENT.
--- NOTE | 2019-05-06 15:20 | NUR ---
PATIENT TOLERATED LACTULOSE PO. NO DIFFICULTY SWALLOWING.
--- NOTE | 2019-05-06 16:39 | NUR ---
IM progress note O/N no events ROS: unobtainable v/s; revd PE: tired appearing not interactive atraumatic ns1s2 reduced bs soft nt nd no e/t flat affect confused; not following commands labs/meds; revd A/P: 78yoF Right HAP AMS/TYSON Thrombocytopenia Acute hepatitis Hyperammonemia Hypokalemia Hypernatremia Dehydration JEROD CAD Chr systolic CHF- monitor with fluids Hypertensive heart ds DM2 PLAN IV vanco/cefepime IVF SCD Lactulose hepatitis panel Hba1c/lipids replace K; recheck; check LFTs. more awake Danielito Mckeon MD, PhD
[2019-05-06] MEDS: CEFEPIME 1GM/NS 0.9% 50 ML 50 ML IV SCH (17:51)
[2019-05-06 18:33] LABS: ALBUMIN 3.1 g/dL (3.5-5.0); BILIRUBIN,DIRECT 1.6 mg/dL (0.0-0.5)
[2019-05-06] MEDS: VANCOMYCIN 1GM/NS 250 ML 250 ML IV SCH (18:35)
[2019-05-06 18:36] LABS: POTASSIUM 2.7 mmol/L (3.5-5.1)
--- NOTE | 2019-05-06 18:52 | NUR ---
PAGED DR. HART REGARDING POTASSIUM 2.7 NEW ORDER FOR POTASSIUM 40 MEQ IV ONCE ORDERS IMPLEMENTED
[2019-05-06] MEDS ORDERED: POTASSIUM CHLORIDE 20MEQ/100ML 200 ML IV ONE (19:00)
[2019-05-06 20:31] LABS: PLATELET ESTIMATE MODERATELY DECREASED; RBC MORPHOLOGY COMMENT NORMAL
[2019-05-07] VITALS (8 sets, daily range): BP systolic 113–133; BP diastolic 59–67
[2019-05-07] MEDS: LACTULOSE SYRUP 20 GM/30 ML UDC PO SCH ×4 (04:38→20:33)
[2019-05-07 05:57] LABS: BASOPHILS % 0.3 % (0.0-1.0); EOSINOPHILS # (AUTO) 0.1 (0.0-0.4); EOSINOPHILS % 0.7 % (0.0-6.0); HEMATOCRIT 40.3 % (34.2-44.1); HEMOGLOBIN 10.9 g/dL (12.0-16.0); LYMPHOCYTES % 12.7 % (18.0-39.1); MEAN CORPUSCULAR HEMOGLOBIN 24.3 pg (28-32); MEAN CORPUSCULAR VOLUME 89.8 fL (81-99); MONOCYTES % 13.1 % (4.4-11.3); NEUTROPHILS # (AUTO) 5.6 (2.1-6.9); NEUTROPHILS % 72.8 % (38.7-80.0); RED BLOOD COUNT 4.49 x10e6/uL (3.6-5.1); RED CELL DISTRIBUTION WIDTH 17.2 % (11.7-14.4)
[2019-05-07 06:04] LABS: PLATELET COUNT 47 x10e3/uL (140-360)
--- NOTE | 2019-05-07 06:17 | Diagnostic Imaging Report ---
A single frontal view of the chest. HISTORY: Altered mental status COMPARISON: Chest radiograph May 05, 2019 DISCUSSION: Portable technique, limits sensitivity of the exam. Soft tissue attenuation markedly limits sensitivity of the exam. Left anterior oblique rotation. Tubes/Lines: None Lungs and pleura: Low lung volumes result in bibasilar vascular crowding, accentuation of the pulmonary interstitial markings, central pulmonary vasculature, and the cardiac silhouette. Allowing for these limitations, the findings are as follows: Improved aeration of the left lung base with residual atelectasis. Diffusely increased pulmonary interstitial markings with patchy regions of more confluent opacities. Heart and mediastinum: The cardiac silhouette appears pulmonary vasculature are enlarged. Prosthetic aortic valve. Bones and soft tissues: Multiple median sternotomy wires. IMPRESSION: 1. The central pulmonary mass or congestion and pulmonary edema appears similar. Superimposed pneumonia or aspiration may be a consideration the appropriate setting. 2. Improved aeration of the left lung base. Signed by: Dr. Christo Salmeron D.O., M.M.M. on 05/07/2019 6:14 AM
[2019-05-07 06:22] LABS: ALBUMIN/GLOBULIN RATIO 0.9 (0.8-2.0); ANION GAP 11.6 mmol/L (8-16); CALCIUM 9.7 mg/dL (8.4-10.2); CREATININE, SERUM 1.18 mg/dL (0.57-1.11)
[2019-05-07 06:26] LABS: POTASSIUM 2.6 mmol/L (3.5-5.1)
--- NOTE | 2019-05-07 06:32 | NUR ---
IM progress note O/N no events ROS: unobtainable v/s; revd PE: tired appearing not interactive atraumatic ns1s2 reduced bs soft nt nd no e/t flat affect confused; not following commands labs/meds; revd A/P: 78yoF Right HAP AMS/TYSON Thrombocytopenia Acute hepatitis Hyperammonemia Hypokalemia Hypernatremia Dehydration JEROD CAD Chr systolic CHF- monitor with fluids Hypertensive heart ds DM2 PLAN IV vanco/cefepime IVF SCD Lactulose hepatitis panel Hba1c/lipids replace K; recheck; check LFTs. more awake Hypok- replace; check ammonia; cont lactulose; f/u GFR; check vanco trough Danielito Mckeon MD, PhD
--- NOTE | 2019-05-07 06:43 | NUR ---
Dr. Mckeon made aware of critical lab values: platelets and potassium.
[2019-05-07] MEDS ORDERED: POTASSIUM CHLORIDE 20 MEQ TAB CR PO ONE ×2 (07:00→12:00)
[2019-05-07] MEDS ORDERED: POTASSIUM CHLORIDE 20MEQ/100ML 200 ML IV ONE (07:00)
--- NOTE | 2019-05-07 07:20 | NUR ---
Patient endorsed to next shift for continuity of care. Patient had three bm
[2019-05-07] MEDS: INSULIN REGULAR, HUMAN 100 UNIT/1 ML 3ML VIAL SQ SCH ×4 (07:30→20:25)
[2019-05-07] MEDS ORDERED: SODIUM CHLORIDE 0.9% 250ML 250 ML ONE (09:18)
--- NOTE | 2019-05-07 10:49 | NUR ---
New orders received from Dr. Mckeon. Consult Dr. Smith and Dr. Keagan Koo. IV fluids initiated. Order for vanc trough one hour prior to today's 1700 dose. Orders received and implemented.
[2019-05-07] MEDS: DEXTROSE 5%/0.45% SOD CHL 1,000 ML IV SCH (11:22)
[2019-05-07] MEDS ORDERED: POTASSIUM CHLORIDE 20MEQ/15ML UDC NG ONE (11:30)
--- NOTE | 2019-05-07 12:37 | NUR ---
Dr. Coronel called at this time. New order received for liver ultrasound. Orders implemented.
--- NOTE | 2019-05-07 13:23 | NUR ---
echocardiograph tech at the bedside to complete liver ultrasound.
--- NOTE | 2019-05-07 13:56 | Consultation ---
DATE OF CONSULTATION: 05/07/2019 Cardiology Consultation CHIEF COMPLAINT: The patient is a 78-year-old transferred from [facility] with confusion and worsening shortness of breath. The patient has had no chest pain, no fevers, no nausea, no vomiting, no abdominal pain. PAST MEDICAL HISTORY: Significant for, 1. Previous coronary artery bypass grafting. 2. Recent transaortic valve replacement done in February 2019 at [facility]. 3. Hypertension. 4. Diabetes mellitus. 5. Known coronary artery disease. SOCIAL HISTORY: The patient does not drink and does not smoke. The patient is currently a resident at the [facility]. FAMILY HISTORY: The patient does have a family history of coronary artery disease. PHYSICAL EXAMINATION: GENERAL: The patient is a well-developed, well-nourished female, in no obvious distress. VITAL SIGNS: Included a temperature of 98.4, blood pressure of 136/72. HEAD, EARS, EYES, NOSE, and THROAT: The patient's cranium was normocephalic and atraumatic. Extraocular muscles were intact. Sclerae were anicteric. NECK: Supple. No jugular venous distention. No carotid bruits. CHEST: Demonstrated rhonchi and rales bilaterally. CARDIAC: Demonstrated normal S1 and abnormal S2 with a 2/6 systolic murmur. ABDOMEN: Demonstrated good bowel sounds. No tenderness and no masses. EXTREMITIES: There is no clubbing, no cyanosis, and no edema. NEUROLOGIC: The patient was awake and moving all extremities. LABORATORY DATA: The patient's EKG demonstrated an ectopic atrial rhythm with a left bundle-branch block. IMPRESSION: The patient is a 78-year-old presenting with confusion and an exacerbation of congestive heart failure. My recommendations are as follows, 1. An echocardiogram was just done, which demonstrated an ejection fraction of 25% with a normal functioning bioprosthetic aortic valve. 2. The patient will need to be diuresed with IV Lasix. 3. The patient will need to be started on VERONA inhibitors. 4. The patient's beta-blockers will need to be held due to the ectopic atrial rhythm and left bundle-branch block. MD RIKKI MaresH/MODL /[id number]
--- NOTE | 2019-05-07 14:12 | Diagnostic Imaging Report ---
Right upper quadrant abdominal ultrasound, 05/07/2019. History: Abnormal LFTs. Comparison: None available. Discussion: Transverse and longitudinal images of the right upper quadrant of the abdomen were obtained demonstrating a liver of normal size but diffusely increased echogenicity measuring 11.9 cm in length. There is no evidence of a focal hepatic mass. The portal vein is patent with hepatopetal flow and is within normal limits measuring 7 mm in diameter. The biliary tree is within normal limits with the common bile duct measuring 5 mm in diameter. There is a non-mobile nonshadowing echogenic focus seen along the posterior aspect of the gallbladder measuring 1.3 x 0.9 x 1.2 cm. The gallbladder is otherwise normal without evidence of shadowing stone, wall thickening, or pericholecystic fluid. The sonographic Samuel's sign was negative. The right kidney is normal in size and echogenicity without evidence of hydronephrosis, stones, or mass and measures 9.2 cm in length. An oval anechoic structure is present anteriorly in the right interpolar region measuring 2.8 x 2.2 x 2.3 cm. The pancreas was obscured by overlying bowel gas. The abdominal aorta is within normal limits. There is a small amount of free fluid adjacent to the inferior aspect of the liver. There is noted to be right pleural effusion. IMPRESSION: 1. Fatty infiltration of the liver without focal hepatic abnormality. 2. Possible sludge ball in the posterior aspect of the gallbladder versus adjacent external structure. No evidence of cholelithiasis. 3. Right renal cyst. 4. Minimal ascites and right pleural effusion are noted. Signed by: Raym Cowart on 05/07/2019 2:09 PM
--- NOTE | 2019-05-07 16:12 | Progress Note ---
DATE: 05/07/2019 Pulmonary Critical Care Progress Note SUBJECTIVE: The patient is still very somnolent. She is scheduled to be evaluated by Gastroenterology today. She is currently on medications for hepatic encephalopathy. She is not having fevers. PHYSICAL EXAMINATION: VITAL SIGNS: The patient is afebrile. The blood pressure is 125/60 and the saturation is 96%. The pulse is 85 and the respiratory rate is normal. HEENT: Shows no facial swelling or erythema. LYMPHATIC: Shows no submandibular cervical or supraclavicular adenopathy. CARDIAC: Reveals regular rate and rhythm with normal S1, S2. There are no murmurs or rubs. LUNGS: Auscultation of lungs shows decreased breath sounds at the bases. There is no wheezing. ABDOMEN: Soft, nontender. There is no rebound or guarding. There is no leg edema or calf tenderness. LABORATORY DATA: White blood cell count is 7.65, and hemoglobin is 10.9. The platelet count is 47. The BUN to creatinine ratio is 33 to 1.18. The sodium is 150 and the potassium is 2.6. Blood sugars 122. Total bilirubin is 2.1 and the AST is 386. The ALT is 321. Albumin is 3. INR is 1.84. RADIOGRAPHIC DATA: Ultrasound of the liver shows some possible sludge in the gallbladder, some minimal ascites, and a right pleural effusion. There is some fatty infiltration of the liver. IMPRESSION: 1. [id number]-[id number] systolic congestive heart failure. 2. Metabolic encephalopathy. 3. Acute onset of liver abnormalities. 4. Right upper lobe pneumonia with sepsis, present on admission. 5. Thrombocytopenia. PLAN: 1. Hold diuretics because of elevated sodium and creatinine. 2. Await GI evaluation. 3. CT scan of head. 4. Consider Neurology evaluation. Prosper Koo MD [facility]/MODL /[id number]
--- NOTE | 2019-05-07 16:27 | NUR ---
PT IS FROM [facility] AND FAMILY STATES WILL RETURN UPON DISCHARGE.
[2019-05-07] MEDS: CEFEPIME 1GM/NS 0.9% 50 ML 50 ML IV SCH (17:28)
--- NOTE | 2019-05-07 17:30 | NUR ---
Vanc trough 13.8. Let Dr. salguero know. Awaiting orders.
--- NOTE | 2019-05-07 18:00 | NUR ---
Order from Dr. Mckeon to give 1700 dose of vancomycin. Orders implemented.
[2019-05-07] MEDS: VANCOMYCIN 1GM/NS 250 ML 250 ML IV SCH (18:08)
--- NOTE | 2019-05-07 19:00 | NUR ---
Received patient from day nurse, patient is alert and responds to verbal command slowly, safety and fall precaution maintained as per hospital protocol: bed in lowest position and locked, needed items beside bed and call muse placed close to patient, patient is currently stable will continue to monitor
--- NOTE | 2019-05-07 19:06 | NUR ---
Walking rounds done. Patient is lethargic but responsive. No distress noted. Dr. Coronel here to see the patient at this time for consultation. Family at the bedside. No concerns voiced by oncoming RN.
--- NOTE | 2019-05-07 20:00 | NUR ---
About this time patient was picked up to MRI.
--- NOTE | 2019-05-07 20:45 | NUR ---
About this time patient was brought back, as per eye technician, patient was yelling and was not cooperating with laying still.
[2019-05-07] MEDS ORDERED: FUROSEMIDE INJ 10 MG/ML 4 ML VIAL IV SCH (21:00)
--- NOTE | 2019-05-07 23:16 | Diagnostic Imaging Report ---
EXAMINATION: Brain MRI and MR angiogram of the enterprise of [place] and Neck CLINICAL HISTORY: Alteration of consciousness, disoriented, confusion, history of dementia, falls. COMPARISON: None available TECHNIQUE: Brain: Sagittal T2; axial DWI, T2, FLAIR, T1-IR, T2 gradient echo; coronal FLAIR. MRAs: 3D TOF and 2D-TOF images were obtained of the brain and neck. Image quality: Motion artifact limits the evaluation of older brain and MRAs sequences. BRAIN MRI FINDINGS: Parenchyma: 1. Few scattered and mildly confluent periventricular white matter T2 and FLAIR hyperintense foci, most likely nonspecific chronic microvascular ischemic changes. 2. No mass, hemorrhage, acute or chronic infarcts. Skull: Unremarkable. Vessels: Expected flow voids present in the major arteries and dural sinuses. Extra-axial spaces: No abnormal signal intensity or mass effect. Brain volume: Within normal limits for age. Ventricles: No hydrocephalus or displacement. Foramen magnum: Unremarkable. Sella: Unremarkable. Paranasal / mastoid sinuses: No significant inflammatory disease. MRA OF THE [place] [facility] [place] : The distal internal carotid, distal vertebral, basilar, and proximal segment of the cerebral arteries are grossly patent. No significant stenosis, occlusion, the discrete aneurysm, or arteriovenous malformation is seen. Anatomic variation: Anterior Communicating Artery: Not well visualized Posterior Communicating Arteries: Not well visualized Vertebral arteries: Codominant MRA OF THE NECK: If present, stenosis of the carotid bulbs is measured based on NASCET criteria i.e area of maximum stenosis compared to the cervical ICA distal to the bulb. Aortic arch and origin of the vessels: Not well visualized. Right Carotid Artery: The common carotid, carotid bulb, internal and external carotid arteries at the level of the neck are normal in caliber, and patent, no evidence of stenoses. Left Carotid Artery: The common carotid, carotid bulb, internal and external carotid arteries at the level of the neck are normal in caliber, and patent, no evidence of stenoses. Vertebral Arteries: Both are normal in morphology and caliber. Both are codominant. No significant stenosis is seen. IMPRESSION: Very suboptimal studies due to patient's motion related artifact, secondary to patient's altered mental status. Brain MRI: 1. No acute infarcts, mass, hemorrhage or hydrocephalus. 2. Mild chronic microvascular ischemic changes. MR angiography of the head and neck: Grossly no large vessel occlusion of the carotid or vertebral arteries in the head or neck. Signed by: Dr. Sonia Castro M.D. on 05/07/2019 11:13 PM
--- NOTE | 2019-05-07 23:35 | Diagnostic Imaging Report ---
PRELIMINARY REPORT: Study: MRCP Comparison: Liver ultrasound May 07, 2019. Indication: Elevated LFTs, abnormal gallbladder imaging Findings: 1. Motion artifact limits the evaluation. 2. Incidental bilateral renal cysts. 3. Incidental moderate right and trace left pleural effusions. 4. Final report to follow from the body imaging section, including specific details of the biliary tract, gallbladder, and pancreas. Preliminary report was provided by Dr. Salmeron on 05/07/2019 at 11:38 PM. EXAM: Magnetic Resonance Cholangiopancreatography (M.R.C.P.) INDICATION: ^elevated lft. abnorm gb imaging COMPARISON: Liver ultrasound 05/07/2019 TECHNIQUE: Multiplanar, multisequence MRCP was performed, with sequences including coronal turbo spin-echo T1-weighted scans, SSH MRCP scans, coronal spin, coronal MPR 2, SMRCP 3D HR, [facility] MRCP ESCOBAR. Thin and thick slab MRCP sequences were obtained from images were performed on the scanner workstation by the technologist and supervising reviewed by the radiologist. IV Contrast: None Oral Contrast: None Medications: None COMPLICATIONS: None FINDINGS: Breathing motion artifact limits evaluation. LOWER THORAX: Moderate right and small left pleural effusions. Median sternotomy wires. HEPATOBILIARY: No focal hepatic lesions. No biliary ductal dilation. Common bile duct measures 0.4 cm. GALLBLADDER: Gallbladder is T2 hyperintense on the one sequence. Majority of the other sequences are not T2 hyperintense, likely representing stones and sludge. No wall thickening. SPLEEN: No splenomegaly. PANCREAS: There is fatty infiltration of the pancreas. 1.3 cm cystic lesion in the inferior aspect of the pancreatic body (series 8, image 20). There is no connection with the pancreatic duct. ADRENALS: No adrenal nodules KIDNEYS/URETERS: No hydronephrosis. Bilateral simple T2 hyperintense cysts with the largest in the inferior pole of the right kidney measuring 2.2 cm and the largest in the superior pole of the left kidney measuring 1.5 cm. No stones. GI TRACT: No abnormal distention, wall thickening, or evidence of bowel obstruction. Appendix is normal. LYMPH NODES: No lymphadenopathy. VESSELS: Unremarkable. PERITONEUM / RETROPERITONEUM: No free air or fluid. BONES: Blooming artifact from right total hip arthroplasty. SOFT TISSUES: Subcutaneous edema. IMPRESSION: 1. Limited exam secondary to motion artifact. 2. Gallbladder is limited in evaluation but is likely filled with sludge and stones. 3. Diffuse fatty infiltration of the pancreas. 4. 1.3 cm cystic lesion in the pancreatic body. No connection with the main pancreatic duct. IPMN is less likely. No suspicious features. 5. Bilateral simple renal cysts. 6. Moderate right and trace left pleural effusions. Signed by: Dr. Daniel Quintanilla M.D. on 05/08/2019 9:59 AM
[2019-05-08] VITALS (21 sets, daily range): BP systolic 103–135; BP diastolic 51–79
[2019-05-08] MEDS: DEXTROSE 5%/0.45% SOD CHL 1,000 ML IV SCH ×2 (00:20→08:52)
--- NOTE | 2019-05-08 03:00 | NUR ---
patient rounded and sleeping.
--- NOTE | 2019-05-08 04:10 | Consultation ---
DATE OF CONSULTATION: 05/07/2019 Gastroenterology Consultation REFERRING PHYSICIAN: Dr. Mckeon. REASON FOR CONSULTATION: Liver disease. HISTORY OF PRESENT ILLNESS: Ms. Chavez is a pleasant 78-year-old woman with below history. She came in with roughly one week of altered mental status, getting acutely worse over the past couple of days. Her LFTs were significantly elevated on admission with a total bilirubin of 2.3, AST of 1167, and ALT of 576. She is found to have pneumonia. She has thrombocytopenia. She has hypernatremia. Apparently, she has been eating very poorly over the past month. Family at bedside was not aware of any chronic liver disease issues and say that overall previously her labs appeared to be fine. Liver ultrasound showed diffuse fatty infiltration of the liver and possible sludge ball in the posterior aspect of the gallbladder versus adjacent external structures as well as minimal ascites and right pleural effusion. She has significant coronary artery disease and has been seen by both Prosper and Nish Koo. She has acute on chronic diastolic and systolic heart failure. PAST MEDICAL HISTORY: 1. Coronary artery disease, status post coronary artery bypass graft roughly four years ago. 2. Recent transaortic valve replacement in February. 3. Hypertension. 4. Diabetes. 5. Possible chronic liver disease . MEDICATIONS: Reviewed. Please see [facility] medication reconciliation form. ALLERGIES: REVIEWED. PLEASE SEE [facility] MEDICATION RECONCILIATION FORM. SOCIAL HISTORY: No alcohol, tobacco, or illicit substances. She has been at the [facility]. She is nonambulatory, but usually is conversant with family even singing. FAMILY HISTORY: Positive for coronary artery disease, but not any liver disease. REVIEW OF SYSTEMS: Unobtainable due to altered mental status. PHYSICAL EXAMINATION: GENERAL: She is calm, but lethargic and nonverbal. HEENT: Pupils are equal, round, and reactive to light. NECK: Supple. LUNGS: Coarse with rhonchi and rales bilaterally. CARDIAC: S1, S2 with 2/6 systolic murmur. ABDOMEN: Soft, nontender, nondistended. Normal bowel sounds. EXTREMITIES: No clubbing or cyanosis. PSYCH: Confused. NEUROLOGIC: Confused. The electronic health records reviewed for laboratory and radiologic studies as well as history. ASSESSMENT: 1. Possible acute on chronic liver disease. Given her overall clinical picture, I suspect she has had an ischemic liver injury. Other hepatobiliary process is not ruled out; however, her acute hepatitis panel was negative. Her LFTs are improving with diuresis and I suspect the acute portion of her liver injury is improving. 2. Altered mental status: Her ammonia level is actually normal. She is having loss of large bowel movement, therefore I will decrease her lactulose. We are giving her Xifaxan. Given thrombocytopenia and abnormal hepatic parenchyma, underlying cirrhosis is certainly a probability and I am not sure if it completely explains her altered mental status. I have discussed with the nurse, maybe a neurologic input would be helpful. We will need to trend her LFTs. We will also check coags. We will go ahead and get an MRCP to evaluate for the underlying biliary problem and evaluate this possible sludge ball versus external structures seen on the ultrasound. Additionally, her potassium has been low, and it is being replaced. Her sodium has been high, it is being treated with fluids. Thank you very much for asking us to see Ms. Chavez. Any questions or concerns, please do not hesitate to contact me. We will follow along with you. Hyun Hathaway MD RLS/MODL /[id number]
--- NOTE | 2019-05-08 05:11 | NUR ---
patient was being cleaned, patient was not responding to turning, moaning as usual to her, she was called loud, she was external rubbed, her vital at that time was 107/63, hr=66, resp. 19, 91 % on 3l nc. COMPUTER GAME DESIGNER was called for non responsiveness. patient was intubated and sent to icu.
[2019-05-08 05:46] LABS: BASOPHILS % 0.3 % (0.0-1.0); EOSINOPHILS % 0.2 % (0.0-6.0); HEMATOCRIT 37.4 % (34.2-44.1); HEMOGLOBIN 9.5 g/dL (12.0-16.0); LYMPHOCYTES # (AUTO) 0.3 (1.0-3.2); LYMPHOCYTES % 4.5 % (18.0-39.1); MEAN CORPUSCULAR HEMOGLOBIN 24.7 pg (28-32); MEAN CORPUSCULAR HGB CONC 25.4 g/dL (31-35); MEAN CORPUSCULAR VOLUME 97.1 fL (81-99); MONOCYTES # (AUTO) 0.7 (0.2-0.8); MONOCYTES % 10.9 % (4.4-11.3); NEUTROPHILS % 79.6 % (38.7-80.0); RED BLOOD COUNT 3.85 x10e6/uL (3.6-5.1); RED CELL DISTRIBUTION WIDTH 18.5 % (11.7-14.4)
[2019-05-08 05:52] LABS: PLATELET COUNT 34 x10e3/uL (140-360)
[2019-05-08 05:56] LABS: INR 2.82; PROTHROMBIN TIME 30.4 seconds (11.9-14.5)
--- NOTE | 2019-05-08 06:00 | NUR ---
Pt received in room 191 post Rapid response, post intubation for unresponsiveness and post and CT Head. Pt was brought in hospital bed. Eyes are closed and she responds only to painful stimuli. AFVSS on arrival. Lungs clear but diminished. ETT to vent on PRVC 16/100/400. 101/51, 66, 100%, RR 16.
[2019-05-08 06:06] LABS: ALBUMIN/GLOBULIN RATIO 0.8 (0.8-2.0); ANION GAP 15.7 mmol/L (8-16); BILIRUBIN,DIRECT 1.7 mg/dL (0.0-0.5); CALCIUM 9.6 mg/dL (8.4-10.2); CREATININE, SERUM 2.23 mg/dL (0.57-1.11); POTASSIUM 4.7 mmol/L (3.5-5.1)
[2019-05-08 06:07] LABS: CREATINE KINASE MB 2.2 ng/mL (0-5.0)
--- NOTE | 2019-05-08 06:18 | Diagnostic Imaging Report ---
EXAMINATION: Head CT HISTORY: Alteration of consciousness, nonresponsive COMPARISON: Brain MRI 05/07/2019 TECHNIQUE: Multidetector axial images were obtained without contrast from the foramen magnum to the vertex . The images were reconstructed using brain and bone algorithms. Thin section brain images were reformatted into coronal and sagittal planes. Image quality: Motion/streaking artifact limits the evaluation of the skull base and posterior cranial fossa. Dose modulation, iterative reconstruction, and/or weight based adjustment of the mA/kV was utilized to reduce the radiation dose to as low as reasonably achievable. FINDINGS: Parenchyma: 1. Few scattered and mildly confluent and periventricular matter hypodensities, most likely nonspecific chronic microvascular ischemic changes. 2. No mass or hemorrhage. No CT evidence of acute territorial vascular insult. Extra-axial spaces:No abnormal density. No extra-axial fluid collections Brain volume: Normal for age. Ventricles: No hydrocephalus or displacement. Arteries: No density suggestive of thrombus. Dural sinuses: No abnormal density. Extra-axial spaces: No abnormal density. Foramen magnum: No mass, Chiari malformation, or basilar invagination. Sella: No obvious mass. Paranasal/mastoid sinuses: Imaged portions unremarkable. Skull/Scalp: No lytic or blastic lesions. No fractures. IMPRESSION: 1. No acute intracranial hemorrhage, hydrocephalus or cortical infarcts. 2. Mild chronic microvascular ischemic changes, stable compared to brain MRI of 05/07/2019. Signed by: Dr. Sonia Castro M.D. on 05/08/2019 6:15 AM
--- NOTE | 2019-05-08 06:20 | NUR ---
Family members Marcie and Renetta Chavez called, no response, message left for them to call back, and hshelio sup. made aware.
--- NOTE | 2019-05-08 06:28 | NUR ---
ICU nurse made aware during report about plt of 34
--- NOTE | 2019-05-08 06:45 | NUR ---
Dr Mckeon was called and updated regarding current issues regarding transfer to ICU. Also updated him regarding platelet count. New consult orders received and placed.
[2019-05-08 07:18] LABS: ANISOCYTOSIS SLIGHT; BAND NEUTROPHILS % (MANUAL) 1 %; HYPOCHROMASIA SLIGHT; LYMPHOCYTES % (MANUAL) 7 % (19-48); MONOCYTES % (MANUAL) 9 % (3.4-9.0); MYELOCYTES % (MANUAL) 2 % (0-0); NEUTROPHILS % (MANUAL) 81 % (40-74); NUCLEATED RED BLOOD CELLS 13; PLATELET ESTIMATE MARKEDLY DECREASED; PLATELET MORPHOLOGY COMMENT NORMAL; RBC MORPHOLOGY COMMENT NORMAL
--- NOTE | 2019-05-08 07:35 | NUR ---
Renetta, Family member, called back, and was made aware of the status of the patient and states will come to the hospital.
--- NOTE | 2019-05-08 07:40 | Diagnostic Imaging Report ---
EXAMINATION: CHEST SINGLE (PORTABLE) INDICATION: ^STATUS POST INTUBATION COMPARISON: None FINDINGS: AP view TUBES and LINES: Low-lying endotracheal tube with tip at the suleman. Median sternotomy wires. Aortic valve stent. LUNGS: Lungs are moderately inflated. There are bibasilar atelectasis. There is perihilar interstitial opacities, consistent with interstitial edema. PLEURA: Small bilateral pleural effusions. HEART AND MEDIASTINUM: The cardiomediastinal silhouette is unremarkable. Tortuous ectatic aorta. BONES AND SOFT TISSUES: No acute osseous lesion. Soft tissues are unremarkable. UPPER ABDOMEN: No free air under the diaphragm. IMPRESSION: Low-lying endotracheal tube with tip at the suleman. Recommend repositioning. Interstitial edema with small bilateral pleural effusions. Signed by: Dr. Daniel Quintanilla M.D. on 05/08/2019 7:37 AM
--- NOTE | 2019-05-08 08:05 | NUR ---
SPOKE TO KEV AT ANSWERING SERVICE TO NOTIFY DR RIDER OF NEW CONSULT
[2019-05-08 08:22] LABS: ABG HCO3 20 mmol/L (23-28); ABG PCO2 38 mmHg (41-51); ABG PH 7.33 (7.31-7.41); ABG PO2 223 mmHg (80-105)
--- NOTE | 2019-05-08 08:25 | Progress Note ---
DATE: 05/08/2019 Pulmonary/Critical Care Progress Note SUBJECTIVE: The patient was less responsive this morning when the nurse was changing her. Rapid was called and the patient was intubated. The patient subsequently went for head CT. Head CT showed no acute bleeds and no acute abnormalities. The patient was seen by Gastroenterology. GI agrees that she has some acute on chronic liver disease, but expressed concern that this may not be the only cause of her altered mental status, because her ammonia level was within the acceptable range. OBJECTIVE: VITAL SIGNS: The patient is afebrile. The blood pressure is 150/52, saturation is 100% on assist control of 16. HEENT: Shows no facial swelling or erythema. The nasal mucosa is normal. LYMPHATICS: Show no submandibular, cervical, or supraclavicular adenopathy. CARDIAC: Reveals regular rate and rhythm with a normal S1 and S2. LUNGS: Auscultation of the lungs reveal crackles in both lung hankins. ABDOMEN: Soft, nontender. There is no rebound or guarding. EXTREMITIES: Show no leg edema or calf tenderness. There is no cyanosis or clubbing. SKIN: Shows no rashes. NEUROLOGIC: Shows the patient to be obtunded and not responding well. There are no focal abnormalities. LABORATORY DATA: The INR is 2.82 and the PT is 30.4. The sodium is 149 and the BUN to creatinine ratio is 33 to 2.23. The direct bilirubin is 2.1, AST is 235, and the ALT is 263. Troponin I is mildly elevated at 0.334. Platelet count is 34, white blood cell count is 6.25, and the hemoglobin is 9.5. IMPRESSION: 1. Acute respiratory failure. 2. Acute on chronic systolic congestive heart failure. 3. Metabolic encephalopathy with obtundation. 4. Acute on chronic liver disease. 5. Thrombocytopenia. 6. Coagulopathy. 7. Anemia. PLAN: 1. Continue mechanical ventilation for now. 2. Repeat ABG. 3. Stop Lasix because of rise in creatinine and concern for hepatorenal syndrome. 4. Ferritin level and DIC profile. 5. Continue current antibiotics and await culture results. 6. Continue D5 half-normal to correct hyponatremia. 7. Case discussed with nursing staff, Respiratory, and family. Greater than 35 minutes in direct critical care time. MD MARISOL Rose/MINDA /[id number]
[2019-05-08] MEDS: LACTULOSE SYRUP 20 GM/30 ML UDC PO SCH ×3 (08:51→23:44)
[2019-05-08] MEDS ORDERED: POTASSIUM CHLORIDE 20 MEQ TAB CR PO SCH (09:00)
[2019-05-08] MEDS: LISINOPRIL 2.5 MG TAB PO SCH (09:00)
[2019-05-08] MEDS: POTASSIUM CHLORIDE 20MEQ/15ML UDC NG SCH (09:00)
[2019-05-08] MEDS: RIFAXIMIN 550 MG TABLET PO SCH ×2 (09:00→17:00)
[2019-05-08] MEDS: INSULIN REGULAR, HUMAN 100 UNIT/1 ML 3ML VIAL SQ SCH ×4 (09:11→21:00)
--- NOTE | 2019-05-08 10:06 | Diagnostic Imaging Report ---
EXAM: Abdomen 1 Views INDICATION: ^OGT TUBE PLACEMENT COMPARISON: Chest x-ray 05/08/2019. FINDINGS: Mild amount of stool in the colon. No dilated loops of small bowel. OG tube tip at the GE junction. No renal calculi. Severe vascular calcifications. No abnormal soft tissue masses. Moderate degenerative changes in the lumbar spine and pelvis. IMPRESSION: OG tube at the GE junction. Signed by: Dr. Daniel Quintanilla M.D. on 05/08/2019 10:03 AM
[2019-05-08 10:15] LABS: BASOPHILS % 0.2 % (0.0-1.0); HEMATOCRIT 42.7 % (34.2-44.1); HEMOGLOBIN 11.3 g/dL (12.0-16.0); LYMPHOCYTES # (AUTO) 0.4 (1.0-3.2); LYMPHOCYTES % 3.4 % (18.0-39.1); MEAN CORPUSCULAR HEMOGLOBIN 24.3 pg (28-32); MEAN CORPUSCULAR HGB CONC 26.5 g/dL (31-35); MEAN CORPUSCULAR VOLUME 91.8 fL (81-99); MONOCYTES # (AUTO) 0.9 (0.2-0.8); MONOCYTES % 8.4 % (4.4-11.3); NEUTROPHILS # (AUTO) 9.2 (2.1-6.9); NEUTROPHILS % 86.9 % (38.7-80.0); RED BLOOD COUNT 4.65 x10e6/uL (3.6-5.1); RED CELL DISTRIBUTION WIDTH 17.8 % (11.7-14.4)
[2019-05-08 10:18] LABS: PLATELET COUNT 35 x10e3/uL (140-360)
[2019-05-08 10:34] LABS: ANION GAP 19.8 mmol/L (8-16); CREATININE, SERUM 2.17 mg/dL (0.57-1.11); POTASSIUM 3.8 mmol/L (3.5-5.1)
--- NOTE | 2019-05-08 14:42 | Progress Note ---
DATE: 05/08/2019 Medicine Progress Note I am covering for Dr. Danielito Mckeon. SUBJECTIVE: Overnight, the patient had rapid response due to being very unresponsive on examination. She is currently being evaluated for underlying encephalopathy. There is some concern that her ammonia level may be high, needing to a GI consultation. She is on lactulose. Cardiology was consulted for mild elevation of troponin. Pulmonary was consulted for pulmonary Critical Care management and evaluation. The patient is currently intubated off, not on sedation. The patient looks clinically dry. During my examination, she was able to open her eyes, but she is not able to speak. She is currently intubated. Appreciate Pulmonary Critical Care assistance on this case. PHYSICAL EXAMINATION: VITAL SIGNS: Temperature is 99.3, pulse is 70, respiratory rate is 16, blood pressure is 100/59. She is on a mechanical ventilator. GENERAL: She is intubated and sedated. HEENT: Intubated and sedated. PULMONARY: Intubated, sedated, on a mechanical ventilator. CARDIOVASCULAR: Positive S1, S2. No murmurs, rubs, or gallops appreciated. ABDOMEN: Soft, nondistended, nontender to palpation. Bowel sounds present. MUSCULOSKELETAL: Unable to assess, intubated and sedated. Neurologic: Unable to assess, intubated and sedated. SKIN: Intact. Warm to touch. Good cap refill. PSYCHIATRIC: Intubated. EXTREMITIES: No edema. Good range of motion throughout. LABORATORY DATA: White count 10.5, hemoglobin 11.3, hematocrit is 42, and platelets of 35. PT 30 and INR 2.82. Chemistry, sodium 140, potassium 3.8, chloride 115, bicarbonate 19, anion gap of 19, BUN is 35, creatinine is 2.17, which has increased since admission. Calcium is 10. Ferritin 163. Total bilirubin 2.1, direct bilirubin 1.7. LFTs were slightly elevated, AST 235, ALT 263, and alkaline phosphatase 109. Ammonia level is 96, but normal in this hospital. Troponin slightly elevated at 0.338. Albumin was 3. Urinalysis seems to be negative. Hepatitis panel was negative. Urine Legionella is pending. MICROBIOLOGY: Blood cultures, no growth. Urine cultures, no growth. Sputum cultures are pending. IMAGING STUDIES: MRI of the brain was found to be normal. MRA of the head and neck grossly no large vessel, occlusion of the carotid or vertebral arteries in the head or neck, otherwise negative findings. STAT CT brain last night was found to be normal with no CT findings. Abdominal x-ray shows an OG tube in the GE junction. MRCP shows there is some evidence of sludge and gallstones in the gallbladder. Moderate right and trace left pleural effusions. IMPRESSION: 1. Metabolic encephalopathy of unknown etiology, could be hepatic in nature. 2. Acute exacerbation of congestive heart failure with systolic dysfunction. 3. Elevated transaminases. 4. Right upper lobe pneumonia with sepsis present on admission. 5. Thrombocytopenia. 6. Hyponatremia. PLAN: In terms of her encephalopathy, I am not sure at this time what the etiology is. Infectious etiology, her white count is normal. She has no fever. MRI of the brain was found to be negative. CT brain was found to be negative. I will go ahead and get a Neurology consultation to further evaluate this patient. She is not on any sedating medication or medication. After further discussion with the family, the patient is decompensated even at the retirement prior to arrival to here at the hospital stay. It could be from secondary underlying elevated ammonia level, but her ammonia level in this hospital within normal range. GI was consulted and is managing that accordingly. We also have Cardiology involved for the NSTEMI, she is noncardiac or taking meds. She is possibly not a candidate for any intervention at this time due to her baseline. Pulmonary Critical Care was consulted for critical care management and assistance as well as the treatment of the underlying pneumonia. She continues to be on IV cefepime as well. Cultures have been negative to date. In relation to her elevated transaminases, GI has been consulted. Renal ultrasound not consistent with any kind of liver cirrhosis. The patient also has thrombocytopenia, in which Hematology/Oncology was consulted. In relation to her hyponatremia, she is already on D5 half-normal saline, we will get a.m. labs to see if her sodium does improve. Her creatinine was elevated slightly drop to little, which is good. She is making good urine output. She has an OG tube, which GE junction. We are going to advance the OG tube more into the stomach. Get a KUB. We will start her on some tube feeds and also get nutrition consultation. We will go ahead and repeat labs in the morning, ammonia level, CBC, and CMP. The consultants involved in this case is Cardiology, GI, Pulmonary/Critical Care, Hematology/Oncology, and we will also get Neurology. MD JEFRY Lopez/MINDA /[id number]
--- NOTE | 2019-05-08 14:48 | Diagnostic Imaging Report ---
EXAM: Abdomen 1 Views INDICATION: ^ADVANCEMENT OF OGT COMPARISON: KUB 05/08/2019. FINDINGS: No significant amount of stool in the colon. No dilated loops of small bowel. No renal calculi. Interval advancement of the OG tube with side port now at the GE junction. Partially visualized endotracheal tube, which remains low lying. No abnormal soft tissue masses. Mild degenerative changes in the lumbar spine and pelvis. IMPRESSION: 1. Interval advancement of the OG tube with side port now at the GE junction. 2. Partially visualized endotracheal tube, which remains low lying. Signed by: Dr. Daniel Quintanilla M.D. on 05/08/2019 2:44 PM
--- NOTE | 2019-05-08 15:24 | NUR ---
kub shows side port at ge junction. radiologist suggests to advance 3 more cm at least. dr garces states start tube feeds after advancement.
--- NOTE | 2019-05-08 16:36 | NUR ---
notified dr bajwa of new consult, she states she will see him tmrw
[2019-05-08] MEDS: CEFEPIME 1GM/NS 0.9% 50 ML 50 ML IV SCH (18:20)
[2019-05-08] MEDS: VANCOMYCIN 1GM/NS 250 ML 250 ML IV SCH (18:20)
--- NOTE | 2019-05-08 23:04 | Consultation ---
DATE OF CONSULTATION: 05/08/2019 REQUESTING PHYSICIAN: Danielito Mckeon MD CONSULTING PHYSICIAN: Ananda Cisneros MD, Hematology-Oncology Service. REASON FOR CONSULTATION: Evaluation and management of patient with thrombocytopenia. HISTORY OF PRESENTING ILLNESS: Ms. Chavez is a 78-year-old female with known history of hypertension, diabetes mellitus, and congestive heart failure, who has been sent from [facility] because of generalized weakness and altered mental status. In the Emergency Department, the patient was noted to be encephalopathic with [id number] congestive heart failure. On admission, imaging revealed pneumonia and due to the concern of sepsis, the patient was started on IV antibiotic. Apparently, the patient had rapid response and transferred to the intensive care unit, intubated, and sedated. She was also noted to have thrombocytopenia on the day of admission, which got worsen to result. Hematology-Oncology has been consulted to assist with the management. Presently, the patient is intubated and sedated. PAST MEDICAL HISTORY: 1. Hypertension. 2. Diabetes mellitus. 3. Known history of congestive heart failure. 4. Questionable history of chronic liver disease. PAST SURGICAL HISTORY: 1. CABG. 2. Status post valve replacement. 3. History of prior shoulder surgery. FAMILY HISTORY: Unable to obtain. ALLERGIES: NO KNOWN DRUG ALLERGIES. CURRENT MEDICATIONS: Reviewed as per electronic medical record. REVIEW OF SYSTEMS: Unable to obtain. LABORATORY DATA: White blood cell count of 10.5, hemoglobin 11.3, hematocrit 42.7, platelets 35,000. BUN 35, creatinine 2.1, PT 30.4, INR 2.82 plus fibrinogen 90. ASSESSMENT/PLAN: Ms. Chavez is a 78-year-old female with known history of hypertension, diabetes mellitus, congestive heart failure, and questionable history of chronic liver disease, admitted to the Emergency Department due to altered mental status. She was felt to be encephalopathic. She also noted to have pneumonia with sepsis as she has already started on IV antibiotic. Apparently, she was intubated after rapid response and transferred to Intensive Care Unit. Presently, she is sedated. Hematology-Oncology has been consulted due to thrombocytopenia. Reviewed the record and discussed case with the covering nurse in detail. Overall, this appeared to be DIC as fibrinogens level are low along with elevated INR, which appeared to be acute and jump from 1.84 on day of admission to 2.82 today. At this point, recommendation would be to address the sepsis. This is probably culprit for coagulopathy. As far as thrombocytopenia is concerned, there is no comparable platelet count available. At this point, I will also get heparin-induced thrombocytopenia antibody to rule out any underlying pathological process causing thrombocytopenia. There is a possibility this is chronically low due to chronic liver disease. Closely monitor and recheck in the morning. Thank you for the consult. I will continue to be available. Please call with questions. MD TRACY Burnett/MODL /[id number]
[2019-05-09] VITALS (27 sets, daily range): BP systolic 92–123; BP diastolic 40–103
[2019-05-09] MEDS: DEXTROSE 5%/0.45% SOD CHL 1,000 ML IV SCH (04:57)
[2019-05-09 06:16] LABS: EOSINOPHILS % 0.2 % (0.0-6.0); HEMATOCRIT 34.8 % (34.2-44.1); HEMOGLOBIN 10.1 g/dL (12.0-16.0); LYMPHOCYTES # (AUTO) 0.9 (1.0-3.2); LYMPHOCYTES % 8.5 % (18.0-39.1); MEAN CORPUSCULAR HEMOGLOBIN 24.6 pg (28-32); MEAN CORPUSCULAR VOLUME 84.7 fL (81-99); NEUTROPHILS # (AUTO) 8.7 (2.1-6.9); NEUTROPHILS % 81.9 % (38.7-80.0); RED BLOOD COUNT 4.11 x10e6/uL (3.6-5.1); RED CELL DISTRIBUTION WIDTH 17.7 % (11.7-14.4)
[2019-05-09 06:30] LABS: PLATELET COUNT 34 x10e3/uL (140-360)
--- NOTE | 2019-05-09 06:40 | Diagnostic Imaging Report ---
EXAMINATION: CHEST SINGLE (PORTABLE) INDICATION: Respiratory Failure COMPARISON: 05/08/2019. FINDINGS: AP view TUBES and LINES: Endotracheal tube distal tip is approximately 1 cm proximal to the suleman. Median sternotomy wires. Aortic valve stent. LUNGS: Bilateral perihilar, and bilateral lower lobe that] and left again observed. PLEURA: Small bilateral pleural effusions. HEART AND MEDIASTINUM: The cardiomediastinal silhouette is unremarkable. Tortuous ectatic aorta. BONES AND SOFT TISSUES: No acute osseous lesion. Soft tissues are unremarkable. UPPER ABDOMEN: No free air under the diaphragm. IMPRESSION: 1. Endotracheal tube is slightly higher in position. 2. Bilateral patchy airspace disease concerning for multifocal pneumonia. Signed by: Dr. Marie Steele M.D. on 05/09/2019 6:37 AM
[2019-05-09 06:41] LABS: ALBUMIN 2.4 g/dL (3.5-5.0); ALBUMIN/GLOBULIN RATIO 0.8 (0.8-2.0); ANION GAP 12.6 mmol/L (8-16); CALCIUM 9.6 mg/dL (8.4-10.2); CREATININE, SERUM 1.61 mg/dL (0.57-1.11)
[2019-05-09 06:42] LABS: POTASSIUM 2.6 mmol/L (3.5-5.1)
[2019-05-09] MEDS: INSULIN REGULAR, HUMAN 100 UNIT/1 ML 3ML VIAL SQ SCH ×4 (07:30→22:34)
--- NOTE | 2019-05-09 07:38 | NUR ---
Paged Dr. Keagan Koo @ [phone], no page back at this time. Patient critical lab K+ 2.6. Day shift nurse Sabina notified and will take call back from Dr. Koo.
[2019-05-09] MEDS ORDERED: POTASSIUM CHLORIDE 20 MEQ TAB CR PO STA (07:52)
[2019-05-09] MEDS ORDERED: POTASSIUM CHLORIDE 20MEQ/100ML 200 ML IV ONE (08:00)
[2019-05-09] MEDS: LISINOPRIL 2.5 MG TAB PO SCH (09:00)
[2019-05-09 09:11] LABS: BASOPHILS % 0.1 % (0.0-1.0); EOSINOPHILS % 0.3 % (0.0-6.0); HEMATOCRIT 36.7 % (34.2-44.1); HEMOGLOBIN 10.7 g/dL (12.0-16.0); LYMPHOCYTES # (AUTO) 1.1 (1.0-3.2); LYMPHOCYTES % 9.7 % (18.0-39.1); MEAN CORPUSCULAR HEMOGLOBIN 24.5 pg (28-32); MEAN CORPUSCULAR HGB CONC 29.2 g/dL (31-35); MONOCYTES # (AUTO) 0.9 (0.2-0.8); MONOCYTES % 8.2 % (4.4-11.3); NEUTROPHILS % 81.1 % (38.7-80.0); RED BLOOD COUNT 4.37 x10e6/uL (3.6-5.1); RED CELL DISTRIBUTION WIDTH 17.6 % (11.7-14.4)
[2019-05-09 09:19] LABS: PLATELET COUNT 35 x10e3/uL (140-360)
[2019-05-09 09:33] LABS: CALCIUM 9.7 mg/dL (8.4-10.2); CREATININE, SERUM 1.46 mg/dL (0.57-1.11)
[2019-05-09 09:36] LABS: INR 2.29; PROTHROMBIN TIME 25.9 seconds (11.9-14.5)
[2019-05-09] MEDS: RIFAXIMIN 550 MG TABLET PO SCH ×2 (09:47→16:55)
[2019-05-09] MEDS: POTASSIUM CHLORIDE 20MEQ/15ML UDC NG SCH (09:47)
[2019-05-09] MEDS: LACTULOSE SYRUP 20 GM/30 ML UDC PO SCH ×3 (09:47→22:34)
[2019-05-09] MEDS ORDERED: MAGNESIUM SULF 1GRAM/DEXTROSE 100 ML IV ONE ×2 (09:57→10:30)
[2019-05-09] MEDS ORDERED: DEXTROSE 5% 500ML 500 ML IV ONE (10:00)
--- NOTE | 2019-05-09 10:20 | NUR ---
Dr Cisneros aware of most recent lab results.
[2019-05-09 10:24] LABS: ABG HCO3 22 mmol/L (23-28); ABG PCO2 38 mmHg (41-51); ABG PH 7.38 (7.31-7.41); ABG PO2 101 mmHg (80-105)
--- NOTE | 2019-05-09 10:36 | Progress Note ---
DATE: 05/09/2019 Pulmonary Critical Care Progress Note SUBJECTIVE: The patient has remained on mechanical ventilation overnight. She has continued to receive IV antibiotics. She is slightly more responsive, but is still very lethargic. PHYSICAL EXAMINATION: VITAL SIGNS: T-max is 99.9 and blood pressure is 111/50. The pulse is 72 and the saturation is 100%. HEENT: Shows no facial swelling or erythema. There is an oral endotracheal tube in place. CARDIAC: Reveals regular rate and rhythm with normal S1 and S2. LUNGS: Auscultation of lungs reveals decreased breath sounds at the bases. There is no wheezing. ABDOMEN: Soft, nontender. There is no rebound or guarding. EXTREMITIES: Show no leg edema or calf tenderness. There is no cyanosis or clubbing. SKIN: Shows no rashes. NEUROLOGIC: Shows the patient to be obtunded, appear lethargic, but slightly arousable. LABORATORY DATA: Sodium is 153 and potassium is 2.6. The BUN to creatinine ratio is 26 to 1.61. AST is 124 and ALT is 148. White blood cell count is 10.6 and hemoglobin is 10.1. The platelet count is 34. IMPRESSION: 1. Acute respiratory failure. 2. Pneumonia with severe sepsis, present on admission. 3. Acute on chronic systolic congestive heart failure. 4. Metabolic encephalopathy. 5. Acute on chronic liver disease. 6. Thrombocytopenia. 7. Coagulopathy probably secondary to disseminated intravascular coagulation. 8. Anemia. PLAN: 1. Continue mechanical ventilation. When the patient becomes more responsive, we will attempt a spontaneous breathing trial. 2. Continue to hold Lasix and give free water for worsening renal function. 3. Replace potassium. 4. Monitor coagulopathy. Case discussed with Nursing, Respiratory, Dr. Vick, and family. Greater than 35 minutes in direct critical care time. Prosper Koo MD [facility]/MODL /[id number]
--- NOTE | 2019-05-09 14:27 | Progress Note ---
DATE: 05/09/2019 Medicine Progress Note I am covering for Dr. Danielito Mckeon. SUBJECTIVE: The patient is much more alert today, though she is intubated. She is able to follow commands. She is able to squeeze her ears, open her eyes, extremities with no issues. I spoke with the nurse at bedside and she states that the patient is doing much better since yesterday. PHYSICAL EXAMINATION: VITAL SIGNS: Temperature is 99.9, T-max is a 103, pulse 75, respiratory rate 14, blood pressure 116/44, pulse ox 100%, she is on mechanical ventilator as well. GENERAL: Intubated, not sedated. HEENT: Head is normocephalic and atraumatic. Eyes; pupils are equal, round, and reactive to light bilaterally. Extraocular movements are intact bilaterally. Throat; no evidence of erythema or exudates in the posterior pharynx. Has poor dentition. NECK: Supple. Good range of motion. Throat, no evidence of any erythema or exudates in the posterior pharynx. Has poor dentition. Has ET tube. CARDIOVASCULAR: Positive S1-S2. No murmurs, rub or gallops appreciated. ABDOMEN: Soft, nondistended, and nontender to palpation. Bowel sounds present. MUSCULOSKELETAL: Unable to assess, but she is able to speak still intubated. NEUROLOGICAL: She is more alert today on examination. Unable to assess rest of the neurological exam due to intubation. SKIN: Intact. Warm to touch. Good cap refill. PSYCHIATRIC: Currently, intubated . EXTREMITIES: No edema. Good range of motion throughout. LABORATORY DATA: Lab show white count is 11, hemoglobin 10.7, hematocrit 36, platelets of 35. Coagulation; fibrinogen is 117. Chemistry; sodium 151, potassium is 2, chloride 116, bicarb 26, anion gap of 11, BUN is 27, creatinine 1.46, glucose 118, calcium 9.7, magnesium 5.7, total bilirubin is 2.4. The AST 124, ALT 149, all downtrending. Amonia level was 35. albumin 2.4. ADONIS pending. antimitochondrial antibody is pending, aspirin panel antibiotics pending. Microbiology; cultures negative. Urine cultures were negative. Sputum cultures pending. Chest x-ray this morning actually bilateral patchy airspace disease concerning for multifocal pneumonia. IMPRESSION: 1. Metabolic encephalopathy, concerning for hepatic in nature versus toxic encephalopathy from infection. 2. Acute exacerbation of congestive heart failure. 3. Elevated transaminases, improving. 4. Right upper lobe pneumonia with underlying. 5. Sepsis secondary to underlying pneumonia. 6. Thrombocytopenia with underlying DIC. 7. Hypernatremia. 8. Hypokalemia. PLAN: At this time, in terms of encephalopathy has improved tremendously. She is much more focused, still very lethargic. She is still intubated, in which Pulmonary is managing accordingly. breathing trial likely later today or maybe tomorrow when she is much more alert. We will continue with underlying diuretics as well. LFTs improving. We will get a.m. labs for that. We will continue with broad-spectrum IV antibiotics. Hematology/Oncology is managing underlying thrombocytopenia. Her sodium level still elevated. We will increase the free water flushes. Get a.m. labs. She is on tube feeds now. Replace potassium aggressively due to hypokalemia. Continue with SCDs for DVT prophylaxis. MD JEFRY Lopez/MINDA /[id number]
[2019-05-09] MEDS: CEFEPIME 1GM/NS 0.9% 50 ML 50 ML IV SCH (16:55)
[2019-05-09] MEDS: VANCOMYCIN 1GM/NS 250 ML 250 ML IV SCH (16:56)
--- NOTE | 2019-05-09 23:54 | Consultation ---
DATE OF CONSULTATION: 05/09/2019 Neurology Consult Note HISTORY OF PRESENT ILLNESS: Ms. Chavez is a 78-year-old woman with past medical history significant for hypertension, hyperlipidemia, diabetes mellitus complicated by peripheral neuropathy, coronary artery disease, congestive heart failure, dementia, and possible chronic liver disease admitted to [facility] on May 07, 2019, with worsening confusion and decreased responsiveness. On May 05, 2019, the patient was found by staff at [facility] to have worsening confusion and decreased level of responsiveness. Emergency Medical Services were alerted and Ms. Chavez was transported to the emergency center at [facility] for further evaluation of her symptoms. In the emergency center, the patient was found to have pneumonia with sepsis, acute hepatitis, and hyperammonemia. The patient was admitted to the hospital for further evaluation of her medical diagnoses. For three days, the patient received antibiotics for pneumonia, rifaximin for hepatic disease, and lactulose for hyperammonemia. During this time, her encephalopathy and level of alertness gradually improved. On May 08, 2019, a change in the patient's level of responsiveness was noted. A rapid response was called and Ms. Chavez was intubated for airway protection. A stat CT of the brain without contrast was then performed. This study did not reveal evidence of recent large territorial ischemia or hemorrhage. The GI service was questioned as to whether or not the change in mental status could be due to acute hepatitis with hyperammonemia. However, the GI service reported this to be unlikely because the patient's ammonia was at an appropriate level at the time the change in responsiveness was noted. A Neurology consultation was then requested for further evaluation and treatment of altered mental status. Upon review of the patient's electronic medical record, it is noted the patient's liver enzymes have gradually decreased since admission, though they do remain elevated. Furthermore, the patient's ammonia level has gradually decreased as well and is presently 35. One other thing noted on review of the patient's laboratory data is an increase in the patient's creatinine from 1.18 on May 07, 2019, to 2.23 on May 08, 2019. Per the nurse caring for the patient in the Intensive Care Unit, Ms. Chavez has significantly improved from yesterday, 05/08/2019: She is awake and alert, following commands, and moving all extremities equally. The patient remains intubated, but will likely be extubated on Friday, May 10, 2019. REVIEW OF SYSTEMS: Unable to obtain secondary to the patient being mechanically ventilated. PAST MEDICAL HISTORY: Hypertension, hyperlipidemia, diabetes mellitus complicated by peripheral neuropathy, coronary artery disease, congestive heart failure, prior history of breast cancer, dementia, chronic pain, insomnia, and possible chronic liver disease. PAST SURGICAL HISTORY: Four-vessel CABG, right hip surgery, right knee surgery, aortic valve replacement, and shoulder surgery. PAST HOSPITALIZATIONS: Surgeries/procedures as listed, multiple other hospitalizations. FAMILY MEDICAL HISTORY: Coronary artery disease. SOCIAL HISTORY: Ms. Chavez is . She is a resident at [facility]. Ms. Chavez is retired. There is no reported current or prior tobacco, alcohol, or recreational drug use. HOME MEDICATIONS: There are no home medications listed in the electronic medical record. HOSPITAL MEDICATIONS: Cefepime, Humulin R, lactulose, lisinopril, rifaximin, and vancomycin. ALLERGIES: NO KNOWN DRUG ALLERGIES. NO KNOWN FOOD ALLERGIES. NO KNOWN ALLERGIES TO LATEX. NO KNOWN ALLERGIES TO IODINE OR OTHER CONTRAST MATERIALS. PHYSICAL EXAMINATION: VITAL SIGNS: Height 61 inches, weight 148 pounds, BMI 28.0 kg/m2, blood pressure 110/80 mmHg, pulse 93 beats per minute, respiratory rate 20 breaths per minute, and oxygen saturation 100% on the mechanical ventilator with settings as follows: Oxygen concentration 40%, PEEP 5 cm water, PS above PEEP 8 cm water. GENERAL: The patient is awake and alert, does not appear distressed. Overweight. HEENT: Normocephalic, atraumatic. Pupils are equal, round, and reactive to light. Moist mucous membranes. NECK: Supple. No appreciable thyromegaly. No appreciable carotid bruits. CARDIOVASCULAR: S1, S2, regular rate and rhythm. No murmurs, rubs, or gallops. RESPIRATORY: Expiratory wheezes over the right lung. EXTREMITIES: The skin is warm and dry. No clubbing, cyanosis, or edema. The posterior tibial and dorsalis pedis pulses are 1+ and symmetric. SKIN: No rashes or lesions. NEUROLOGIC: Memory/Attention: The patient is awake and alert, unable to answer orientation questions secondary to being mechanically ventilated. Cranial Nerves: Pupils are equal, round, and briskly reactive to light (from 4 mm to 2 mm). Corneal, oculocephalic, and gag reflexes are intact. The face appears symmetric. Strength: Bulk is normal. Ms. Chavez moves all extremities to command and withdraws both arms and both legs from peripheral noxious stimulation. DTRs: Deep tendon reflexes are 1+ and symmetric at the triceps, biceps, and brachioradialis. Deep tendon reflexes are absent and symmetric at the patellas and Achilles. Plantar responses are flexor bilaterally. Sensation: Sensation is as per motor exam. Cerebellar: Unable to assess secondary to the patient being unable to follow instructions for nnqasi-[id number]-[id number] and heel-rob movements. Gait: Deferred. Speech: Unable to assess secondary to the patient being mechanically ventilated. Involuntary movements: None. Pronator Drift: As per motor exam. LABORATORY DATA: The most recent basic metabolic panel reveals a sodium of 151, potassium of 2.0, chloride of 116, BUN of 27, creatinine of 1.46, and an estimated GFR of 35. A lipid panel collected on May 09, 2019, reveals a total bilirubin of 2.4, elevated liver enzymes with AST of 124, and ALT of 149, total protein of 5.3, and albumin of 2.4. Most recent ammonia level is 35. The CBC with differential and platelets reveals a white blood cell count of 11.04 with a left shift with 81.1% neutrophils, 9.7% lymphocytes, 8.2% monocytes, 0.3% eosinophils, and 0.1% basophils. The hemoglobin and hematocrit are 10.7 and 36.7, respectively. The platelet count is 35. Fibrinogen 117. PT 25.9, INR 2.29. An arterial blood gas collected on May 09, 2019, revealed a pH of 7.38, pCO2 of 38, PO2 of 101, bicarbonate of 22, O2 saturation of 98.0, base excess of -3.0, and FiO2 of 40. A urinalysis collected on May 05, 2019, revealed slightly cloudy urine with 1+ protein, moderate amorphous sediment, and many urine bacteria with no urine epithelial cells. Random vancomycin 17.4. Vancomycin trough 13.8. ADONIS screen pending, antimitochondrial antibody pending, anti smooth muscle antibody pending, heparin-induced platelet abnormality pending. Hepatitis panel was negative. Hepatitis E IgM antibody pending. Urine Legionella antibody pending. DIAGNOSTIC STUDIES: 1. Chest x-ray, 05/05/2019: Cardiomegaly and pulmonary vascular prominence. Airspace opacity in the right upper lobe may be related to edema or pneumonia. 2. Abdomen x-ray of 05/05/2019: Numerous wires/leads overlie the upper abdomen. Possible NG tube with distal tip over the gastroesophageal junction. 3. Echocardiogram, 05/06/2019: Ejection fraction 35% to 40%. Left atrial enlargement. Mvwa-[id number] mitral regurgitation. Trace tricuspid regurgitation, pulmonic insufficiency, aortic insufficiency. Aortic valve replaced. 4. Liver ultrasound, 05/07/2019: 5. Fatty infiltration of the liver without focal hepatic abnormality. 6. Possible sludge ball in the posterior aspect of the gallbladder versus adjacent external structure. No evidence of cholelithiasis. 7. Right renal cyst. 8. Minimal ascites and right pleural effusion are noted. 9. MRI brain without contrast, 05/07/2019: Suboptimal views related to motion artifact. There is no evidence of recent large territorial ischemia, hemorrhage, mass, or mass effect. Cerebral volumes are appropriate for age. There are scattered, mildly confluent T2/FLAIR hyperintense foci of the supratentorial white matter compatible with [id number] chronic small-vessel ischemic disease. 10. MRA of the brain and neck without contrast, 05/07/2019: No hemodynamically significant stenoses or occlusion of intra or extracranial blood vessels. 11. EKG of 05/08/2019: Sinus rhythm at 79 beats per minute. Nonspecific intraventricular block. 12. CT of the brain without contrast, 05/08/2019: 13. No acute intracranial hemorrhage, hydrocephalus, or cortical infarcts. 14. Mild chronic microvascular ischemic changes, stable compared to brain MRI of 05/07/2019. 15. Abdomen x-ray, 05/08/2019: Interval placement of the OG tube with side port now at the GE junction. Partially visualized endotracheal tube, which remains low- lying. 16. Chest x-ray, 05/09/2019: Endotracheal tube is slightly higher in position. Bilateral patchy airspace disease concerning for multifocal pneumonia. ASSESSMENT AND PLAN: Ms. Chavez is a 78-year-old woman with an extensive past medical history, admitted to [facility] on May 05, 2019, with worsening confusion and decreased level of responsiveness attributed to pneumonia and acute hepatitis with hyperammonemia. While receiving treatment for the aforementioned, the patient's encephalopathy and level of alertness gradually improved over a period of 2 to 3 days. However, on May 08, 2019, the patient was noted to have a decreased level of responsiveness. A rapid response was called and the patient was intubated for airway protection. After a CT of the brain without contrast was found to have no acute findings and after consulting the GI service, a Neurology consultation was requested for further evaluation and treatment of altered mental status. Ms. Chavez has undergone a thorough neurological examination with findings detailed above. Her laboratory data and other diagnostic studies have been reviewed and are documented above. Ms. Chavez has metabolic encephalopathy. In my opinion, the patient's worsening confusion and decreased level of responsiveness noted on May 08, 2019, was due to acutely worsening renal function with an increase in creatinine from 1.18 to 2.23. The worsening renal function, superimposed on baseline dementia, pneumonia with sepsis, and acute on chronic liver disease/dysfunction is responsible for Ms. Chavez' altered mental status. Continued treatment of the aforementioned medical diagnoses is recommended (i.e. antibiotics for infection, medication for liver disease and hyperammonemia, gentle hydration for renal insufficiency, etc.). There are no other recommendations from the Neurology Service at this time. TIME SPENT: 70 minutes. Danette Gimenez MD CP/MINDA /[id number] MTDD
[2019-05-10] VITALS (24 sets, daily range): BP systolic 80–110; BP diastolic 39–73
[2019-05-10] MEDS: DEXTROSE 5%/0.45% SOD CHL 1,000 ML IV SCH ×2 (00:04→07:03)
[2019-05-10 05:14] LABS: BASOPHILS % 0.2 % (0.0-1.0); EOSINOPHILS # (AUTO) 0.3 (0.0-0.4); HEMATOCRIT 35.8 % (34.2-44.1); HEMOGLOBIN 10.2 g/dL (12.0-16.0); LYMPHOCYTES # (AUTO) 1.1 (1.0-3.2); LYMPHOCYTES % 9.6 % (18.0-39.1); MEAN CORPUSCULAR HEMOGLOBIN 24.1 pg (28-32); MEAN CORPUSCULAR HGB CONC 28.5 g/dL (31-35); MEAN CORPUSCULAR VOLUME 84.6 fL (81-99); MONOCYTES # (AUTO) 0.9 (0.2-0.8); MONOCYTES % 8.2 % (4.4-11.3); NEUTROPHILS # (AUTO) 8.6 (2.1-6.9); NEUTROPHILS % 78.5 % (38.7-80.0); RED BLOOD COUNT 4.23 x10e6/uL (3.6-5.1); RED CELL DISTRIBUTION WIDTH 17.8 % (11.7-14.4)
[2019-05-10 05:35] LABS: PLATELET COUNT 29 x10e3/uL (140-360)
[2019-05-10 05:38] LABS: ALBUMIN 2.3 g/dL (3.5-5.0); ALBUMIN/GLOBULIN RATIO 0.8 (0.8-2.0); ANION GAP 10.6 mmol/L (8-16); CREATININE, SERUM 1.28 mg/dL (0.57-1.11); POTASSIUM 3.6 mmol/L (3.5-5.1)
--- NOTE | 2019-05-10 06:39 | Diagnostic Imaging Report ---
EXAMINATION: CHEST SINGLE (PORTABLE) INDICATION: Respiratory failure. COMPARISON: 05/09/2019. FINDINGS: TUBES and LINES: Endotracheal tube distal tip is approximately 2 cm proximal to the suleman. NG tube with distal portion coiled with distal tip not included, unchanged. LUNGS: Redemonstration of patchy density throughout the lungs bilaterally, particularly in the right lower lobe slightly decreased since the prior examination. PLEURA: Small bilateral pleural effusions. HEART AND MEDIASTINUM: The cardiac silhouette is mildly enlarged. Tortuous ectatic aorta. BONES AND SOFT TISSUES: No acute osseous lesion. Median sternotomy wires. UPPER ABDOMEN: No free air under the diaphragm. IMPRESSION: 1. Patchy density throughout the lungs bilaterally, particularly in the right lower lobe slightly decreased since the prior examination. Signed by: Dr. Marie Steele M.D. on 05/10/2019 6:36 AM
[2019-05-10 07:22] LABS: ANISOCYTOSIS S; BURR CELLS F; PLATELET ESTIMATE MARKEDLY DECREASED; PLATELET MORPHOLOGY COMMENT NORMAL; POIKILOCYTOSIS F; RBC MORPHOLOGY COMMENT ABNORMAL
[2019-05-10 07:23] LABS: HYPOCHROMASIA S
[2019-05-10] MEDS: INSULIN REGULAR, HUMAN 100 UNIT/1 ML 3ML VIAL SQ SCH ×2 (07:30→17:00)
[2019-05-10] MEDS: POTASSIUM CHLORIDE 20MEQ/15ML UDC NG SCH (09:00)
[2019-05-10] MEDS: LISINOPRIL 2.5 MG TAB PO SCH (09:00)
[2019-05-10] MEDS: LACTULOSE SYRUP 20 GM/30 ML UDC PO SCH ×3 (09:00→20:33)
[2019-05-10] MEDS: RIFAXIMIN 550 MG TABLET PO SCH ×2 (09:00→17:00)
--- NOTE | 2019-05-10 09:05 | Progress Note ---
DATE: 05/10/2019 Pulmonary Critical Care Progress Note SUBJECTIVE: The patient is more awake at this time. She sleeps, but is easily arousable and follows commands. She was placed on spontaneous breathing trial with a CPAP of 5 and a pressure support of 10. She is tolerating this well. Breathing 15 times a minute with tidal volumes of 250 to 300 mL. PHYSICAL EXAMINATION: VITAL SIGNS: Blood pressure is 109/69 and pulse is 82. Saturation is 100%. HEENT: Shows no facial swelling or erythema. The oropharynx is normal. There is an endotracheal tube in place. CARDIAC: Reveals regular rate and rhythm with a normal S1 and S2. There are no murmurs or rubs. LUNGS: Auscultation of lungs reveals decreased breath sounds at the bases. There is no wheezing. ABDOMEN: Soft, nontender. There is no rebound or guarding. EXTREMITIES: Show no leg edema. IMPRESSION: 1. Acute respiratory failure. 2. Metabolic encephalopathy. 3. Pneumonia with severe sepsis, present on admission. 4. Acute on chronic systolic congestive heart failure. 5. Acute on chronic liver disease. 6. Thrombocytopenia. 7. Anemia. 8. Hepatorenal syndrome type 2. 9. 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 PLAN: 1. Spontaneous breathing trial with goal of extubation. 2. Continue antibiotics. 3. Continue treatment for liver disease. 4. Continue to monitor coagulopathy. Prosper Koo MD [facility]/TIFFANYL /[id number]
[2019-05-10 10:33] LABS: ABG HCO3 21 mmol/L (23-28); ABG PCO2 40 mmHg (41-51); ABG PH 7.32 (7.31-7.41); ABG PO2 155 mmHg (80-105)
--- NOTE | 2019-05-10 12:20 | Progress Note ---
DATE: 05/10/2019 Medicine Progress Note Covering for Dr. Danielito Mckeon. SUBJECTIVE: The patient is now extubated. She was alert, awake and able to talk to me and at her normal baseline. She currently has a BiPAP on. The patient is otherwise doing well, much improved. Discussed the case with nursing staff at bedside. Vital signs were stable when I evaluated her. OBJECTIVE: VITAL SIGNS: Temperature was 98.9, pulse 92, respiratory rate is 21. She is on BiPAP. She was extubated early this morning. Systolic blood pressure recorded at 6 a.m. was 80, but she is much higher, when I evaluated her, she was systolically above 100. GENERAL: She was alert, awake, and oriented, at her baseline. Cooperative on examination. HEENT: Head is normocephalic and atraumatic. Eyes; pupils are equal, round, and reactive to light bilaterally. Extraocular movements are intact bilaterally. Throat, no evidence of erythema or exudates in the posterior pharynx. Has poor dentition. NECK: Supple. Good range of motion. PULMONARY: Clear to auscultation bilaterally. No wheezing, no rales, no rhonchi, no crackles appreciated. CARDIOVASCULAR: Positive S1, S2. No murmurs, rubs, or gallops appreciated. ABDOMEN: Soft, nondistended, and nontender to palpation. Bowel sounds present. MUSCULOSKELETAL: Strength is 4/5 throughout. NEUROLOGICAL: She is alert and oriented x2, at her baseline. SKIN: Intact. Warm to touch. Good cap refill. PSYCHIATRIC: At baseline. EXTREMITIES: No edema. Good range of motion throughout. LABORATORY DATA: White count was 10.8, hemoglobin 10.2, hematocrit is 35 platelets of 29. Chemistry; sodium 140, potassium 3.6, chloride 118, bicarbonate 21, anion gap of 10, BUN is 21, creatinine is 1.3, glucose is 182, calcium 9. Total bilirubin is 1.8, AST 82, ALT 114. Ammonia level was 66. LDL was 70. MICROBIOLOGY: None. IMAGING STUDIES: Chest x-ray this morning, patchy density throughout the lungs bilaterally particular in the right lower lobes, slightly decreased since prior examination. IMPRESSION: 1. Metabolic encephalopathy concerning from underlying hepatic in nature versus toxic encephalopathy from underlying sepsis, now resolved. 2. Acute exacerbation of congestive heart failure. 3. Elevated transaminases, improving. 4. Right upper lobe pneumonia. 5. Sepsis secondary to pneumonia. 6. Thrombocytopenia with underlying DIC. 7. Hypernatremia. 8. Hypokalemia. PLAN: At this time, the patient is now extubated, on a BiPAP, doing much better, alert and oriented, at her baseline. We are going to try doing a speech therapy evaluation once she is off BiPAP to see if she can tolerate the diet well. I discussed this with the nurse. In relation to her CHF, we will continue with cardioprotective medications, continue with diuretics as well. LFTs are downtrending and improving. Continue with broad-spectrum IV antibiotics. Cultures are negative to date. In relation to her thrombocytopenia, Hematology is managing accordingly. Her platelets have decreased, unsure if she needs any kind of platelet transfusion at this time. Her sodium improved. Her potassium and her electrolytes were replaced accordingly. She is on SCDs for DVT prophylaxis. We have already put order for LTAC placement in which hopefully she can be transferred soon to [facility]. I discussed plan of care with nurse at bedside. MD JEFRY Lopez/MINDA /[id number]
--- NOTE | 2019-05-10 14:54 | NUR ---
Nutrition Intervention Note RD Recommendation(s) for Physician: -When PO is feasible, rec ADA 1600/ cardiac diet; diet texture per [facility] PULP -If PO is not feasible, rec continuous TF with Glucerna 1.2 @ goal rate of 55mL/hr, providing 1584kcal, 79g protein, 1063ml water -Water flushes per MD -Check labs, weight, and gastric tolerance daily Plan of Care: RD following, monitoring for tolerance and adequacy Nutrition reason for involvement: New TF RD Assessment 05/10 78yo F, who was admitted for AMS. Pt was discussed during AM rounds. Pt was extubated this morning. Currently on BiPAP. TF was running with Nepro at 30mL/hr, which was well tolerated. Pending swallow evaluation. Unable to obtain info from pt and family. Will continue to monitor and follow. Principal Problems/Diagnoses: 1. Metabolic encephalopathy concerning from underlying hepatic in nature versus toxic encephalopathy from underlying sepsis, now resolved. 2. Acute exacerbation of congestive heart failure. 3. Elevated transaminases, improving. 4. Right upper lobe pneumonia. 5. Sepsis secondary to pneumonia. PMH: E.coli UTI, Dementia, Chronic systolic CHF, HLD, breast CA, Hypertensive heart dz, DM, Chronic pain, insomnia, CAD s/p CABG, DM-neuropathy GI: abdomen soft, non-tender, LBM 05/10 Skin: no pressure wound noted Labs: (05/10) Na 146 H, creatinine 1.28 H, Glucose 136 H, AST 82 H, ALT 114 H Meds: dextrose Ht: 61in Wt: 149lb BMI: 28.2kg/m2 IBW: 105lb +/- 10% Malnutrition Evaluation (05/10/19) The patient does not meet criteria for a specified degree of malnutrition at this time. Will re-evaluate at follow-up as appropriate. Nutrition Prescription (Diet Order): Nepro @50mL/hr Estimated Nutritional Needs: Calories: 1340 1675kcal(20-25kcal/kg/d) Weight used: CBW Protein: 54 80g(0.8-1.2g/kg/d) Weight used: CBW Diet Adequacy: Meeting calorie needs, Meeting protein needs Diet Education Needs Assessment: Diet education not indicated. Nutrition Care Level: mod Nutrition Diagnosis: Inadequate oral intake related to current medical status as evidenced by pt requiring EN as main source of nutrition. Goal: Patient will meet 75-100% of estimated needs by follow up Progress: Progressing Interventions: Modified diet, Composition, Rate, Route, Collaboration with other providers Monitoring/Evaluation: Total energy intake, Total protein intake, Formula/Solution, Modified diet, Weight change Signed: Geraldine Vazquez MS, RD, LD
--- NOTE | 2019-05-10 15:19 | NUR ---
discuss patient status with Dr. Koo and plan of care. new orders to hold po meds at this time. swallow evaluation for tomorrow ordered.
--- NOTE | 2019-05-10 16:43 | NUR ---
LTAC EVAL ORDERED CHOICE SIGNED BY PT'S DTR THOMAS SIMONS INITIATED AND PUT ON PACKET NOTIFIED FARHAN OF CONSULT
[2019-05-10 16:56] LABS: ABG HCO3 22 mmol/L (23-28); ABG PCO2 50 mmHg (41-51); ABG PH 7.25 (7.31-7.41); ABG PO2 122 mmHg (80-105)
[2019-05-10] MEDS: CEFEPIME 1GM/NS 0.9% 50 ML 50 ML IV SCH (17:07)
[2019-05-10] MEDS ORDERED: SUCCINYLCHOLINE CHLORIDE 20 MG/ML 10ML VIAL ONE (17:32)
--- NOTE | 2019-05-10 17:43 | Diagnostic Imaging Report ---
EXAMINATION: CHEST SINGLE (PORTABLE) INDICATION: Cough, concern for pneumonia COMPARISON: Multiple prior chest radiograph, most recently of 05/10/2019 FINDINGS: The patient is left rotated. Image limited by low lung volume, portable technique and underpenetration. TUBES and LINES: Sternotomy wires in place. EKG leads overlie the thorax. LUNGS: The lung volumes are low. There is perihilar fullness and indistinctness of the pulmonary vasculature. Bibasilar airspace opacities silhouette both hemidiaphragms. PLEURA: Bilateral left greater than right pleural effusions. HEART AND MEDIASTINUM: Cardiomediastinal silhouette is stably enlarged. BONES AND SOFT TISSUES: No acute fracture or dislocation. UPPER ABDOMEN: No free air under the diaphragm. IMPRESSION: Pulmonary edema and bilateral left greater than right pleural effusions.. Bibasilar airspace opacities more likely represent airspace edema than superimposed aspiration or pneumonia. Unchanged cardiomegaly. Postoperative findings of CABG. Signed by: Lo Gonzalez MD on 05/10/2019 5:39 PM
[2019-05-10] MEDS: VANCOMYCIN 1GM/NS 250 ML 250 ML IV SCH (18:09)
[2019-05-10] MEDS ORDERED: FUROSEMIDE INJ 10 MG/ML 4 ML VIAL IV NR (18:45)
[2019-05-10 20:21] LABS: ABG HCO3 22 mmol/L (23-28); ABG PCO2 47 mmHg (41-51); ABG PH 7.27 (7.31-7.41); ABG PO2 126 mmHg (80-105)
--- NOTE | 2019-05-10 20:31 | NUR ---
2020- Dr. Blayne waters. stated to call with platelet result if less than 25. 2029- Read back ABG results to Dr. Marie Koo. Orders received.
[2019-05-11] VITALS (24 sets, daily range): BP systolic 83–108; BP diastolic 43–61
[2019-05-11 05:10] LABS: BASOPHILS % 0.4 % (0.0-1.0); EOSINOPHILS # (AUTO) 0.3 (0.0-0.4); EOSINOPHILS % 2.3 % (0.0-6.0); HEMOGLOBIN 9.9 g/dL (12.0-16.0); LYMPHOCYTES # (AUTO) 0.9 (1.0-3.2); MEAN CORPUSCULAR HEMOGLOBIN 24.2 pg (28-32); MEAN CORPUSCULAR HGB CONC 27.5 g/dL (31-35); MONOCYTES % 9.1 % (4.4-11.3); NEUTROPHILS # (AUTO) 8.6 (2.1-6.9); NEUTROPHILS % 79.6 % (38.7-80.0); RED BLOOD COUNT 4.09 x10e6/uL (3.6-5.1)
[2019-05-11 05:19] LABS: PLATELET COUNT 21 x10e3/uL (140-360)
[2019-05-11 05:26] LABS: ANION GAP 10.9 mmol/L (8-16); CALCIUM 9.2 mg/dL (8.4-10.2); CREATININE, SERUM 1.24 mg/dL (0.57-1.11); POTASSIUM 3.9 mmol/L (3.5-5.1)
[2019-05-11] MEDS: INSULIN REGULAR, HUMAN 100 UNIT/1 ML 3ML VIAL SQ SCH ×5 (06:00→23:48)
--- NOTE | 2019-05-11 06:15 | NUR ---
[id number]- Dr. Cisneros returned page for critical platelet value of 21. Orders received for jumbo platelets x 1. 0670- Obtained telephone consent for blood product transfusion. Jennifer BUSTAMANTE witnessed.
--- NOTE | 2019-05-11 06:55 | Diagnostic Imaging Report ---
EXAMINATION: CHEST SINGLE (PORTABLE) INDICATION: ^F/U PNEUMONIA COMPARISON: 05/10/2019 FINDINGS: AP view TUBES and LINES: None. LUNGS: Lungs are well inflated. Moderate interstitial edema. Underlying pneumonia cannot be excluded. PLEURA: No visible pneumothorax. Suspected small bilateral pleural effusions. HEART AND MEDIASTINUM: The cardiomediastinal silhouette is enlarged. Median sternotomy wires and prosthetic valve are again seen. BONES AND SOFT TISSUES: No acute osseous lesion. Soft tissues are unremarkable. UPPER ABDOMEN: No free air under the diaphragm. IMPRESSION: No significant interval change from prior exam. Signed by: Dr. Steven Sung MD on 05/11/2019 6:51 AM
[2019-05-11 07:39] LABS: RBC MORPHOLOGY COMMENT NORMAL
[2019-05-11 07:40] LABS: PLATELET ESTIMATE MODERATELY DECREASED
--- NOTE | 2019-05-11 07:56 | NUR ---
IM progress note O/N no events ROS: unobtainable v/s; revd PE: tired appearing; BIPAP in place. not interactive atraumatic ns1s2 reduced bs soft nt nd no e/t flat affect confused; not following commands labs/meds; revd A/P: 78yoF Right HAP AMS/TYSON Thrombocytopenia Acute hepatitis Hyperammonemia Hypokalemia Hypernatremia Dehydration JEROD CAD Chr systolic CHF- monitor with fluids Hypertensive heart ds DM2 PLAN IV vanco/cefepime IVF SCD Lactulose hepatitis panel Hba1c/lipids replace K; recheck; check LFTs. more awake Hypok- replace; check ammonia; cont lactulose; f/u GFR; check vanco trough 05/11 Pt was intubated, extubated, improving; plans for LTAC; renal fn stable; does have thrombocytopenia- defer to hematology. Extubated to bipap. awake; Danielito Mckeon MD, PhD
[2019-05-11] MEDS ORDERED: FUROSEMIDE INJ 10 MG/ML 4 ML VIAL IV ONE ×2 (08:15→18:00)
--- NOTE | 2019-05-11 08:20 | Progress Note ---
DATE: 05/11/2019 Pulmonary Critical Care Progress Note SUBJECTIVE: The patient still has some sleepiness, but she is much more awake. She received Lasix yesterday and had some diuresis. OBJECTIVE: VITAL SIGNS: The blood pressure is 93/45, and the pulse is 63. Saturation is 100%. The patient is on a BiPAP mask. CARDIAC: Reveals a regular rate and rhythm with normal S1, S2. There are no murmurs or rubs. PULMONARY: Auscultation of lungs reveals crackles at the bases. There is no wheezing. ABDOMEN: Soft and nontender. There is no rebound or guarding. EXTREMITIES: Show 1 to 2+ leg edema. LABORATORY DATA: The white blood cell count is 10.9 and hemoglobin is 9.9, the platelet count is 21. The BUN to creatinine ratio is normal. The other electrolytes are within normal limits. RADIOGRAPHIC DATA: Chest x-ray shows no significant change. There are small bilateral pleural effusions and moderate interstitial edema. IMPRESSION: 1. Acute on chronic respiratory failure. 2. Acute on chronic systolic congestive heart failure. 3. Metabolic encephalopathy. 4. Acute on chronic liver disease. 5. Pneumonia present on admission. 6. Thrombocytopenia. 7. Hepatorenal syndrome, type 2. 8. 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 PLAN: 1. Continue diuresis. 2. Repeat ABG. 3. Repeat Vanco trough level and adjust vancomycin accordingly. 4. Continue to monitor liver function and coags. Prosper Koo MD LM/MINDA /[id number]
[2019-05-11] MEDS: LACTULOSE SYRUP 20 GM/30 ML UDC PO SCH (09:00)
[2019-05-11] MEDS: LISINOPRIL 2.5 MG TAB PO SCH (09:00)
[2019-05-11] MEDS: RIFAXIMIN 550 MG TABLET PO SCH ×2 (09:00→16:33)
[2019-05-11] MEDS: POTASSIUM CHLORIDE 20MEQ/15ML UDC NG SCH (09:00)
[2019-05-11 09:50] LABS: ABG HCO3 22 mmol/L (23-28); ABG PCO2 47 mmHg (41-51); ABG PH 7.27 (7.31-7.41); ABG PO2 204 mmHg (80-105)
[2019-05-11] MEDS ORDERED: SODIUM CHLORIDE 0.9% 250ML 250 ML ONE (11:54)
--- NOTE | 2019-05-11 14:41 | NUR ---
PT DISCUSSED IN BARRIER ROUNDS; ON LASIX, EXTUBATED YESTERDAY FAILED BEDSIDE, WILL ATTEMPT AGAIN TOMORROW, PLATELETS RECEIVED 2 JUMBO, ON ABX, BIPAP, PENDING LT[facility].
[2019-05-11] MEDS: CEFEPIME 1GM/NS 0.9% 50 ML 50 ML IV SCH (16:33)
[2019-05-11 16:41] LABS: ABG HCO3 23 mmol/L (23-28); ABG PCO2 51 mmHg (41-51); ABG PH 7.26 (7.31-7.41); ABG PO2 249 mmHg (80-105)
[2019-05-11] MEDS ORDERED: VANCOMYCIN 750MG/NS 150ML IVPB 150 ML IV SCH (17:00)
--- NOTE | 2019-05-11 17:27 | NUR ---
notified dr. lauren of vanc trough results and abg results. new orders to give lasix 40mg ivp x1, place back on bipap and hold vanc dose. torb dr. lauren.
[2019-05-11 17:39] LABS: ANION GAP 12.4 mmol/L (8-16); CALCIUM 9.7 mg/dL (8.4-10.2); CREATININE, SERUM 1.39 mg/dL (0.57-1.11); POTASSIUM 4.4 mmol/L (3.5-5.1)
[2019-05-11] MEDS ORDERED: FUROSEMIDE INJ 10 MG/ML 4 ML VIAL IV NR ×2 (18:00)
[2019-05-12] VITALS (25 sets, daily range): BP systolic 93–136; BP diastolic 42–73
[2019-05-12 04:59] LABS: BASOPHILS % 0.4 % (0.0-1.0); EOSINOPHILS # (AUTO) 0.1 (0.0-0.4); EOSINOPHILS % 0.8 % (0.0-6.0); HEMATOCRIT 35.4 % (34.2-44.1); HEMOGLOBIN 9.7 g/dL (12.0-16.0); LYMPHOCYTES # (AUTO) 0.9 (1.0-3.2); LYMPHOCYTES % 9.5 % (18.0-39.1); MEAN CORPUSCULAR HGB CONC 27.4 g/dL (31-35); MEAN CORPUSCULAR VOLUME 87.6 fL (81-99); MONOCYTES # (AUTO) 0.8 (0.2-0.8); NEUTROPHILS # (AUTO) 7.3 (2.1-6.9); PLATELET COUNT 78 x10e3/uL (140-360); RED BLOOD COUNT 4.04 x10e6/uL (3.6-5.1); RED CELL DISTRIBUTION WIDTH 18.2 % (11.7-14.4)
[2019-05-12 05:23] LABS: ALBUMIN 2.6 g/dL (3.5-5.0); ALBUMIN/GLOBULIN RATIO 0.8 (0.8-2.0); CALCIUM 9.7 mg/dL (8.4-10.2); CREATININE, SERUM 1.49 mg/dL (0.57-1.11)
[2019-05-12] MEDS: INSULIN REGULAR, HUMAN 100 UNIT/1 ML 3ML VIAL SQ SCH ×3 (06:00→17:48)
--- NOTE | 2019-05-12 06:55 | NUR ---
IM progress note O/N no events ROS: unobtainable v/s; revd PE: tired appearing; BIPAP in place. not interactive atraumatic ns1s2 reduced bs soft nt nd no e/t flat affect confused; not following commands labs/meds; revd A/P: 78yoF Right HAP AMS/TYSON Thrombocytopenia Acute hepatitis Hyperammonemia Hypokalemia Hypernatremia Dehydration JEROD CAD Chr systolic CHF- monitor with fluids Hypertensive heart ds DM2 PLAN IV vanco/cefepime IVF SCD Lactulose hepatitis panel Hba1c/lipids replace K; recheck; check LFTs. more awake Hypok- replace; check ammonia; cont lactulose; f/u GFR; check vanco trough 05/11 Pt was intubated, extubated, improving; plans for LTAC; renal fn stable; does have thrombocytopenia- defer to hematology. Extubated to bipap. awake; 05/12 platelets triple today to 78K; renal fn stable; Doing well on NC; OOB today. Danielito Mckeon MD, PhD
[2019-05-12] MEDS: LACTULOSE SYRUP 20 GM/30 ML UDC PO SCH (08:12)
[2019-05-12] MEDS: LISINOPRIL 2.5 MG TAB PO SCH (08:13)
[2019-05-12] MEDS: RIFAXIMIN 550 MG TABLET PO SCH ×2 (08:13→17:00)
--- NOTE | 2019-05-12 08:21 | Diagnostic Imaging Report ---
EXAMINATION: CHEST SINGLE (PORTABLE) INDICATION: Respiratory failure COMPARISON: Multiple prior chest radiographs most recently of 05/11/2019 FINDINGS: TUBES and LINES: EKG leads overlie the chest. Sternotomy wires intact. LUNGS: The lung volumes are low. There is perihilar fullness and indistinctness of the pulmonary vasculature. There is left basilar opacity silhouetting the left gwen diaphragm. PLEURA: Bilateral layering pleural effusions. No pneumothorax. HEART AND MEDIASTINUM: Cardiomediastinal silhouette is stably enlarged. BONES AND SOFT TISSUES: No acute fracture or dislocation. UPPER ABDOMEN: No free air under the diaphragm. IMPRESSION: Low lung volumes and worsening pulmonary edema. Bilateral layering pleural effusions. Left basilar patchy opacity may represent atelectasis, however superimposed aspiration or pneumonia could have a similar appearance. Signed by: Lo Gonzalez MD on 05/12/2019 8:18 AM
[2019-05-12] MEDS: POTASSIUM CHLORIDE 20MEQ/15ML UDC NG SCH (09:00)
[2019-05-12 10:33] LABS: LYMPHOCYTES % (MANUAL) 7 % (19-48); MONOCYTES % (MANUAL) 4 % (3.4-9.0); NEUTROPHILS % (MANUAL) 89 % (40-74)
[2019-05-12 10:34] LABS: ANISOCYTOSIS SLIG; HYPOCHROMASIA SLIGHT; PLATELET ESTIMATE MARKEDLY DECREASED; PLATELET MORPHOLOGY COMMENT NORMAL; POIKILOCYTOSIS SLIGHT
--- NOTE | 2019-05-12 14:23 | Progress Note ---
DATE: 05/12/2019 Pulmonary Progress Note SUBJECTIVE: The patient felt better this morning. She was more talkative. She had less complaints. PHYSICAL EXAMINATION: VITAL SIGNS: The patient is afebrile. The blood pressure is 114/62 and the saturation is 100% on 3 L. HEENT: Shows no facial swelling or erythema. The oropharynx is normal. LYMPHATIC: Shows no submandibular, cervical or supraclavicular adenopathy. CARDIAC: Reveals regular rate and rhythm with normal S1 and S2. LUNGS: Auscultation of lungs shows decreased breath sounds at the bases. ABDOMEN: Soft, nontender. There is no rebound or guarding. EXTREMITIES: Show no leg edema or calf tenderness. There is no cyanosis or clubbing. SKIN: Shows no rashes. RADIOGRAPHIC DATA: Chest x-ray shows bilateral pleural effusions, right more than left. There are some bibasilar opacities. LABORATORY DATA: BUN to creatinine ratio is 33 to 1.49 and the carbon dioxide is 19. Platelet count has improved to 78, hemoglobin is 9.7. IMPRESSION: 1. Acute on chronic respiratory failure. 2. Acute on chronic systolic congestive heart failure. 3. Cirrhosis. 4. Metabolic encephalopathy. 5. Hepatorenal syndrome type 2. 6. Coagulopathy secondary to liver disease and disseminated intravascular coagulation. PLAN: 1. Continue oxygen with BiPAP as needed. 2. Consider FFP and thoracentesis. 3. Continue antibiotics. 4. Case discussed with nursing and family. MD MARISOL Rose/MINDA /[id number]
[2019-05-12] MEDS ORDERED: LIDOCAINE HCL 2% LOCAL 20 ML VIAL ONE (16:50)
[2019-05-12] MEDS: CEFEPIME 1GM/NS 0.9% 50 ML 50 ML IV SCH (17:48)
--- NOTE | 2019-05-12 20:35 | NUR ---
Spoke to Dr. Koo via phone to verify infusion of FFP order, 2 were infused during day, ordered to cancel remaining 2 bags. Jessi in lab notified.
[2019-05-13] VITALS (24 sets, daily range): BP systolic 98–139; BP diastolic 43–81
[2019-05-13 05:15] LABS: BASOPHILS % 0.4 % (0.0-1.0); EOSINOPHILS # (AUTO) 0.1 (0.0-0.4); EOSINOPHILS % 0.6 % (0.0-6.0); HEMATOCRIT 37.2 % (34.2-44.1); LYMPHOCYTES # (AUTO) 1.2 (1.0-3.2); LYMPHOCYTES % 10.8 % (18.0-39.1); MEAN CORPUSCULAR HEMOGLOBIN 24.2 pg (28-32); MEAN CORPUSCULAR HGB CONC 26.9 g/dL (31-35); MEAN CORPUSCULAR VOLUME 89.9 fL (81-99); MONOCYTES # (AUTO) 1.1 (0.2-0.8); MONOCYTES % 10.3 % (4.4-11.3); NEUTROPHILS # (AUTO) 8.3 (2.1-6.9); NEUTROPHILS % 77.4 % (38.7-80.0); PLATELET COUNT 65 x10e3/uL (140-360); RED BLOOD COUNT 4.14 x10e6/uL (3.6-5.1); RED CELL DISTRIBUTION WIDTH 18.5 % (11.7-14.4)
[2019-05-13 05:34] LABS: ALBUMIN/GLOBULIN RATIO 0.8 (0.8-2.0); ANION GAP 18.2 mmol/L (8-16); CALCIUM 10.3 mg/dL (8.4-10.2); CREATININE, SERUM 1.79 mg/dL (0.57-1.11)
[2019-05-13 05:39] LABS: POTASSIUM 5.2 mmol/L (3.5-5.1)
[2019-05-13] MEDS: INSULIN REGULAR, HUMAN 100 UNIT/1 ML 3ML VIAL SQ SCH ×4 (06:00→18:00)
--- NOTE | 2019-05-13 06:18 | NUR ---
IM progress note O/N no events ROS: unobtainable v/s; revd PE: tired appearing; BIPAP in place. not interactive atraumatic ns1s2 reduced bs soft nt nd no e/t flat affect confused; not following commands labs/meds; revd A/P: 78yoF Right HAP AMS/TYSON Thrombocytopenia Acute hepatitis Hyperammonemia Hypokalemia Hypernatremia Dehydration JEROD CAD Chr systolic CHF- monitor with fluids Hypertensive heart ds DM2 PLAN IV vanco/cefepime IVF SCD Lactulose hepatitis panel Hba1c/lipids replace K; recheck; check LFTs. more awake Hypok- replace; check ammonia; cont lactulose; f/u GFR; check vanco trough 05/11 Pt was intubated, extubated, improving; plans for LTAC; renal fn stable; does have thrombocytopenia- defer to hematology. Extubated to bipap. awake; 05/12 platelets triple today to 78K; renal fn stable; Doing well on NC; OOB today. 05/13 Valencia parapsilosis in sputum; Hypoglycemia- add food supplements; Somewhat dehydrated, although pleural effusion, as evident by hypercalcemia and hyperkalemia; recheck BMP at 2pm. PT; MBS pending; use D5 1/2NS at 20 due to hypoglycemia. Danileito Mckeon MD, PhD
[2019-05-13] MEDS ORDERED: DEXTROSE 5%/0.9% SOD CHL 1,000 ML IV ONE (07:30)
[2019-05-13] MEDS: POTASSIUM CHLORIDE 20MEQ/15ML UDC NG SCH (07:52)
[2019-05-13] MEDS: LACTULOSE SYRUP 20 GM/30 ML UDC PO SCH (07:53)
[2019-05-13] MEDS: RIFAXIMIN 550 MG TABLET PO SCH ×2 (07:53→16:54)
[2019-05-13] MEDS: LISINOPRIL 2.5 MG TAB PO SCH (07:53)
--- NOTE | 2019-05-13 09:59 | NUR ---
ST NOTE: Pt scheduled to have procedure today, recommend MBS on 05-14-19 if pt clinically appropriate.
[2019-05-13 10:24] LABS: ANISOCYTOSIS SLIG; LYMPHOCYTES % (MANUAL) 10 % (19-48); MONOCYTES % (MANUAL) 10 % (3.4-9.0); NEUTROPHILS % (MANUAL) 80 % (40-74); PLATELET ESTIMATE MARKEDLY DECREASED; PLATELET MORPHOLOGY COMMENT NORMAL; POIKILOCYTOSIS SLIGHT; RBC MORPHOLOGY COMMENT ABNORMAL
[2019-05-13 12:20] LABS: ABG HCO3 22 mmol/L (23-28); ABG PCO2 53 mmHg (41-51); ABG PH 7.22 (7.31-7.41); ABG PO2 131 mmHg (80-105)
[2019-05-13 12:22] LABS: ALBUMIN 2.9 g/dL (3.5-5.0); ALBUMIN/GLOBULIN RATIO 0.7 (0.8-2.0); ANION GAP 16.9 mmol/L (8-16); CREATININE, SERUM 1.69 mg/dL (0.57-1.11); POTASSIUM 4.9 mmol/L (3.5-5.1)
--- NOTE | 2019-05-13 13:16 | NUR ---
ST NOTE: Pt now on bipap and has orders not to come off, MBS to be postponed until pt clinically appropriate, handoff to ROBBY Muhammad, Nela, radiology
--- NOTE | 2019-05-13 13:22 | NUR ---
PT DISCUSSED IN BARRIER ROUNDS; PT IS MAX 3 PERSON ASSIST, GETTING ANOTHER BESIDE EVAL, PENDING RESULTS, CONTINUE CARE
--- NOTE | 2019-05-13 13:33 | Progress Note ---
DATE: 05/13/2019 Pulmonary Critical Care Progress Note SUBJECTIVE: The patient is more confused this morning. She seems disoriented. Her blood sugar was in the 70 range, and she was started on some D5 half-normal. Her respiratory status is stable. PHYSICAL EXAMINATION: VITAL SIGNS: The blood pressure is 128/50 and saturation is 100% on 3 L. HEENT: Shows no facial swelling or erythema. The oropharynx is normal. LYMPHATIC: Shows no submandibular, cervical, or supraclavicular adenopathy. NECK: Shows no JVD or thyromegaly. There is no nuchal rigidity. CARDIAC: Reveals regular rate and rhythm with normal S1 and S2. There are no murmurs or rubs heard. LUNGS: Auscultation of lungs reveals rhonchorous breath sounds bilaterally. There is no wheezing. ABDOMEN: Soft, nontender. There is no rebound or guarding. EXTREMITIES: Show no leg edema or calf tenderness. IMPRESSION: 1. Metabolic encephalopathy. 2. Cirrhosis. 3. Acute on chronic systolic congestive heart failure. 4. Coagulopathy. 5. Hepatorenal syndrome type 2. PLAN: 1. Repeat ABG. 2. Repeat ammonia level. 3. Continue oxygen. 4. Continue current treatment for cirrhosis. MD MARISOL Rose/MODL /[id number]
--- NOTE | 2019-05-13 14:07 | NUR ---
Spoke with Dr Mckeon regarding patient MBS and conversation regarding possible NGT placement. For now because of ABG and necessity for Bipap, patient is NPO and MBS probable to be done tomorrow. ABG to be drawn at 1800 today.
[2019-05-13 14:54] LABS: ANION GAP 16.7 mmol/L (8-16); CALCIUM 10.2 mg/dL (8.4-10.2); CREATININE, SERUM 1.7 mg/dL (0.57-1.11); POTASSIUM 4.7 mmol/L (3.5-5.1)
[2019-05-13 16:26] LABS: ABG HCO3 21 mmol/L (23-28); ABG PCO2 45 mmHg (41-51); ABG PH 7.28 (7.31-7.41); ABG PO2 137 mmHg (80-105)
--- NOTE | 2019-05-13 16:33 | NUR ---
ABG drawn. Dr Kai Koo to bedside; advised to keep on Bipap for now.
[2019-05-13] MEDS: CEFEPIME 1GM/NS 0.9% 50 ML 50 ML IV SCH (16:54)
[2019-05-14] VITALS (25 sets, daily range): BP systolic 100–140; BP diastolic 40–90
[2019-05-14 05:05] LABS: BASOPHILS % 0.4 % (0.0-1.0); EOSINOPHILS # (AUTO) 0.1 (0.0-0.4); EOSINOPHILS % 0.8 % (0.0-6.0); HEMATOCRIT 33.7 % (34.2-44.1); HEMOGLOBIN 9.4 g/dL (12.0-16.0); LYMPHOCYTES # (AUTO) 0.7 (1.0-3.2); LYMPHOCYTES % 7.4 % (18.0-39.1); MEAN CORPUSCULAR HEMOGLOBIN 24.2 pg (28-32); MEAN CORPUSCULAR HGB CONC 27.9 g/dL (31-35); MONOCYTES # (AUTO) 0.8 (0.2-0.8); MONOCYTES % 7.7 % (4.4-11.3); NEUTROPHILS # (AUTO) 8.3 (2.1-6.9); NEUTROPHILS % 83.2 % (38.7-80.0); RED BLOOD COUNT 3.89 x10e6/uL (3.6-5.1); RED CELL DISTRIBUTION WIDTH 18.6 % (11.7-14.4)
[2019-05-14 05:08] LABS: MEAN CORPUSCULAR VOLUME 86.6 fL (81-99)
[2019-05-14 05:10] LABS: PLATELET COUNT 46 x10e3/uL (140-360)
--- NOTE | 2019-05-14 05:12 | NUR ---
INFORMED NANCY BUSTAMANTE OF PLT COUNT OF 46, CALL FROM LAB.
--- NOTE | 2019-05-14 05:25 | NUR ---
IM progress note O/N no events ROS: unobtainable v/s; revd PE: tired appearing; BIPAP in place. not interactive atraumatic ns1s2 reduced bs soft nt nd no e/t flat affect confused; not following commands labs/meds; revd A/P: 78yoF Right HAP AMS/TYSON Thrombocytopenia Acute hepatitis Hyperammonemia Hypokalemia Hypernatremia Dehydration JEROD CAD Chr systolic CHF- monitor with fluids Hypertensive heart ds DM2 PLAN IV vanco/cefepime IVF SCD Lactulose hepatitis panel Hba1c/lipids replace K; recheck; check LFTs. more awake Hypok- replace; check ammonia; cont lactulose; f/u GFR; check vanco trough 05/11 Pt was intubated, extubated, improving; plans for LTAC; renal fn stable; does have thrombocytopenia- defer to hematology. Extubated to bipap. awake; 05/12 platelets triple today to 78K; renal fn stable; Doing well on NC; OOB today. 05/13 Valencia parapsilosis in sputum; Hypoglycemia- add food supplements; Somewhat dehydrated, although pleural effusion, as evident by hypercalcemia and hyperkalemia; recheck BMP at 2pm. PT; MBS pending; use D5 1/2NS at 20 due to hypoglycemia. 05/14 Continued need for BIPAP; swallow eval; D5 for calories. Attempts to appeal denial of LTAC Danielito Mckeon MD, PhD
[2019-05-14] MEDS: INSULIN REGULAR, HUMAN 100 UNIT/1 ML 3ML VIAL SQ SCH ×4 (05:53→18:00)
[2019-05-14 07:55] LABS: LYMPHOCYTES % (MANUAL) 8 % (19-48); MONOCYTES % (MANUAL) 7 % (3.4-9.0); NEUTROPHILS % (MANUAL) 85 % (40-74)
[2019-05-14 07:56] LABS: ANISOCYTOSIS MODERATE; HYPOCHROMASIA MARKED; PLATELET MORPHOLOGY COMMENT FEW AGRANULAR
[2019-05-14 07:57] LABS: PLATELET ESTIMATE MARKEDLY DECREASED
--- NOTE | 2019-05-14 08:17 | Diagnostic Imaging Report ---
EXAMINATION: CHEST SINGLE (PORTABLE) INDICATION: Altered mental status ^Resp Failure ^[id number] ^[id number] COMPARISON: 05/12/2019 FINDINGS: TUBES and LINES: EKG leads overlie the chest. Sternotomy wires intact. LUNGS: The lung volumes are low. There is perihilar fullness and indistinctness of the pulmonary vasculature. There is left basilar opacity silhouetting the left gwen diaphragm. PLEURA: Bilateral layering pleural effusions. No pneumothorax. HEART AND MEDIASTINUM: Cardiomediastinal silhouette is stably enlarged. BONES AND SOFT TISSUES: No acute fracture or dislocation. UPPER ABDOMEN: No free air under the diaphragm. IMPRESSION: Low lung volumes and worsening pulmonary edema. Bilateral layering pleural effusions. The pleural effusion on the right may be slightly larger. Left basilar patchy opacity may represent atelectasis, however superimposed aspiration or pneumonia could have a similar appearance. Signed by: Dr. Compa Green M.D. on 05/14/2019 8:13 AM
--- NOTE | 2019-05-14 08:38 | NUR ---
PT DENIED FOR LTAC BY INSURANCE PER FARHAN SIN AT [facility] CALL PLACED TO DR HART TO ASK TO DO [facility]; HE SAID HE REALLY DIDN'T WANT TO DO [facility] CURRENTLY PT ON CONTINUOUS BIPAP AND IS UNABLE TO REPEAT BARIUM SWALLOW UNTIL ABLE TO COME OFF BIPAP
[2019-05-14] MEDS: POTASSIUM CHLORIDE 20MEQ/15ML UDC NG SCH (09:00)
[2019-05-14] MEDS: LISINOPRIL 2.5 MG TAB PO SCH (09:00)
[2019-05-14] MEDS: LACTULOSE SYRUP 20 GM/30 ML UDC PO SCH (09:00)
[2019-05-14] MEDS: RIFAXIMIN 550 MG TABLET PO SCH ×2 (09:00→18:18)
--- NOTE | 2019-05-14 09:29 | NUR ---
ST NOTE: Pt continues to be on bi-pap, MBS deferred to next week when pt clinically appropriate
--- NOTE | 2019-05-14 13:20 | NUR ---
Nutrition Intervention Note RD Recommendation(s) for Physician: -When PO is feasible, rec ADA 1600/ cardiac diet; diet texture per SUPPORT COORDINATOR -If PO is not feasible, place feeding tube and initiate TF of Glucerna 1.2 with goal rate of 55mL/hr (to provide 1584kcal, 79g protein, 1063ml water) -Water flushes per MD Plan of Care: RD following, monitoring for tolerance and adequacy Nutrition reason for involvement: f/u RD Assessment 05/14: Pt extubated, NGT pulled, no TF at this time. Pt continues to await MBS 2/2 BiPAP. Pt remains confused, no family present at bedside. Pt discussed during ICU rounds. Current rec's remain appropriate. Will monitor and continue to follow. 05/10 78yo F, who was admitted for AMS. Pt was discussed during AM rounds. Pt was extubated this morning. Currently on BiPAP. TF was running with Nepro at 30mL/hr, which was well tolerated. Pending swallow evaluation. Unable to obtain info from pt and family. Will continue to monitor and follow. Principal Problems/Diagnoses: 1. Metabolic encephalopathy concerning from underlying hepatic in nature versus toxic encephalopathy from underlying sepsis, now resolved. 2. Acute exacerbation of congestive heart failure. 3. Elevated transaminases, improving. 4. Right upper lobe pneumonia. 5. Sepsis secondary to pneumonia. PMH: E.coli UTI, Dementia, Chronic systolic CHF, HLD, breast CA, Hypertensive heart dz, DM, Chronic pain, insomnia, CAD s/p CABG, DM-neuropathy IVF: D5NS at 20 ml/hr GI: abdomen soft, non-tender, LBM 05/11 Skin: no pressure wound noted Labs: (05/14) Na 147, K 4.7, BU 44, Cr 1.7, Gluc 81 Meds: abx, lactulose, insulin, rifaxamin, KCl , lasix Ht: 61in Wt: 149lb BMI: 28.2kg/m2 IBW: 105lb +/- 10% Malnutrition Evaluation (05/10/19) The patient does not meet criteria for a specified degree of malnutrition at this time. Will re-evaluate at follow-up as appropriate. Nutrition Prescription (Diet Order): TF off Estimated Nutritional Needs: Calories: 1340 1675kcal(20-25kcal/kg/d) Weight used: CBW Protein: 54 80g(0.8-1.2g/kg/d) Weight used: CBW Diet Adequacy: Not meeting calorie needs, not meeting protein needs Diet Education Needs Assessment: Diet education not indicated. Nutrition Care Level: mod Nutrition Diagnosis: Inadequate oral intake related to current medical status as evidenced by pt requiring EN as main source of nutrition. Goal: Patient will meet 75-100% of estimated needs by follow up Progress: Progressing Interventions: Modified diet, Composition, Rate, Route, Collaboration with other providers Monitoring/Evaluation: Total energy intake, Total protein intake, Formula/Solution, Modified diet, Weight change Signed: Celi Sotelo RD, LD, [facility]
[2019-05-14] MEDS ORDERED: FUROSEMIDE INJ 10 MG/ML 4 ML VIAL IV ONE (13:30)
--- NOTE | 2019-05-14 13:49 | Progress Note ---
DATE: 05/14/2019 SUBJECTIVE: The patient has required some BiPAP overnight. She remains more alert. She is not complaining of dyspnea or congestion. PHYSICAL EXAMINATION: VITAL SIGNS: The patient is afebrile. The blood pressure is 100/54. Saturation is normal. HEENT: Shows no facial swelling or erythema. The oropharynx is normal. LYMPHATIC: Shows no submandibular, cervical, or supraclavicular adenopathy. CARDIAC: Reveals a regular rate and rhythm with normal S1, S2. There are no murmurs or rubs heard. LUNGS: Auscultation of lungs reveals decreased breath sounds at the bases. There is no wheezing. ABDOMEN: Soft, nontender. There is no rebound or guarding. IMPRESSION: 1. Appro-io-gpcralt respiratory failure. 2. Rytbk-vd-ydyojzr systolic congestive heart failure. 3. Cirrhosis. 4. Metabolic encephalopathy. 5. Coagulopathy. PLAN: 1. Arrange for right-sided ultrasound-guided thoracentesis. 2. Continue chest physiotherapy. 3. Continue BiPAP as needed. 4. Continue current treatment for cirrhosis. 5. Consider restarting diuretics. Prosper Koo MD [facility]/MODL /[id number]
--- NOTE | 2019-05-14 14:37 | NUR ---
DR HART NOW AGREEABLE TO DO [facility] FOR LTAC DENIAL [facility] REAL FAXED ME LETTER FOR AN EXPEDITED APPEAL FOR PHYSICIAN TO SIGN DR DAVISON IS COVERING THIS WEEKEND AND ACCORDING TO FARHAN SIN HE IS AGREEABLE TO SIGN COPY OF LETTER PLACED ON FRONT OF CHART FOR SIGNATURE WILL RETRIEVE AFTER PHYSICIAN SIGNS AND FAX BACK TO [phone] CM FOLLOWING
[2019-05-14 14:59] LABS: INR 1.88; PROTHROMBIN TIME 22.3 seconds (11.9-14.5)
[2019-05-14 15:10] LABS: ALBUMIN 2.9 g/dL (3.5-5.0); ALBUMIN/GLOBULIN RATIO 0.8 (0.8-2.0); ANION GAP 17.2 mmol/L (8-16); CREATININE, SERUM 1.55 mg/dL (0.57-1.11); POTASSIUM 4.2 mmol/L (3.5-5.1)
[2019-05-14] MEDS: CEFEPIME 1GM/NS 0.9% 50 ML 50 ML IV SCH (17:00)
[2019-05-15] VITALS (25 sets, daily range): BP systolic 108–141; BP diastolic 35–116
[2019-05-15 04:59] LABS: BASOPHILS # (AUTO) 0.1 (0.0-0.1); BASOPHILS % 0.5 % (0.0-1.0); EOSINOPHILS # (AUTO) 0.1 (0.0-0.4); EOSINOPHILS % 0.6 % (0.0-6.0); HEMOGLOBIN 10.4 g/dL (12.0-16.0); LYMPHOCYTES # (AUTO) 1.1 (1.0-3.2); LYMPHOCYTES % 9.9 % (18.0-39.1); MEAN CORPUSCULAR HEMOGLOBIN 24.1 pg (28-32); MEAN CORPUSCULAR HGB CONC 26.7 g/dL (31-35); MONOCYTES % 9.1 % (4.4-11.3); NEUTROPHILS % 79.3 % (38.7-80.0); RED BLOOD COUNT 4.31 x10e6/uL (3.6-5.1); RED CELL DISTRIBUTION WIDTH 18.9 % (11.7-14.4)
[2019-05-15 05:04] LABS: MEAN CORPUSCULAR VOLUME 90.5 fL (81-99); PLATELET COUNT 42 x10e3/uL (140-360)
[2019-05-15 05:13] LABS: INR 1.82; PARTIAL THROMBOPLASTIN TIME 26.4 seconds (23.8-35.5); PROTHROMBIN TIME 21.7 seconds (11.9-14.5)
[2019-05-15 05:25] LABS: ANION GAP 15.6 mmol/L (8-16); CREATININE, SERUM 1.43 mg/dL (0.57-1.11); POTASSIUM 3.6 mmol/L (3.5-5.1)
[2019-05-15] MEDS: INSULIN REGULAR, HUMAN 100 UNIT/1 ML 3ML VIAL SQ SCH ×5 (06:00→23:51)
[2019-05-15] MEDS: LACTULOSE SYRUP 20 GM/30 ML UDC PO SCH (08:20)
[2019-05-15] MEDS: LISINOPRIL 2.5 MG TAB PO SCH (08:20)
[2019-05-15] MEDS: POTASSIUM CHLORIDE 20MEQ/15ML UDC NG SCH (08:20)
[2019-05-15] MEDS: RIFAXIMIN 550 MG TABLET PO SCH ×2 (09:00→17:00)
[2019-05-15] MEDS ORDERED: HALOPERIDOL LACTATE 5 MG/ML VIAL IV NR (13:15)
--- NOTE | 2019-05-15 13:45 | Progress Note ---
DATE: 05/15/2019 SUBJECTIVE: The patient is more agitated today and has been using BiPAP intermittently. She complains of being thirsty. She is not having fevers. PHYSICAL EXAMINATION: VITAL SIGNS: The patient is afebrile. The blood pressure is 120/54, saturation is 100% on 3 L. She is on BiPAP. HEENT: Shows no facial swelling or erythema. The nasal mucosa is normal. The oropharynx is normal. CARDIAC: Reveals regular rate and rhythm with normal S1, S2. LUNGS: Auscultation of lungs reveals clear breath sounds bilaterally. There is no wheezing. ABDOMEN: Soft, nontender. There is no rebound or guarding. EXTREMITIES: Show no leg edema or calf tenderness. There is no cyanosis or clubbing. IMPRESSION: 1. Vxejm-pa-pftmiit respiratory failure. 2. Djvoa-ma-nimvijz systolic congestive heart failure. 3. Cirrhosis. 4. Coagulopathy. 5. Metabolic encephalopathy. PLAN: 1. Case was discussed with daughter and son, they understand the patient has multi-system organ disease. They are considering DNR status, but would like to discuss it with the rest of the family. 2. Continue BiPAP as needed. 3. Continue current cardiac regimen. MD MARISOL Rose/MINDA /[id number]
--- NOTE | 2019-05-15 13:50 | NUR ---
DR DAVISON HERE AND SIGNED LETTER FOR EXPEDITED APPEAL FOR LTAC FAXED SIGNED LETTER TO [phone] CONFIRMATION REC'D
--- NOTE | 2019-05-15 16:36 | Progress Note ---
DATE: 05/15/2019 Medicine Progress Note I am covering for Dr. Danielito Mckeon. SUBJECTIVE: The patient is currently on BiPAP. Occasionally, she will be a very combative, requiring Haldol. I discussed plan of care with the nurse at bedside. Family member was there including the grandson and the son, and they are talking about overall plan of care in terms of code status. The patient has been severely ill for a significant period of time and currently lives in a senior living. At this time, code status is still full code until family makes final decision. PHYSICAL EXAMINATION: VITAL SIGNS: Temperature 97.9, pulse 78, respiratory rate is 20, blood pressure is 140/60, and pulse ox, she is 100% on BiPAP at 40% FiO2. GENERAL: She is alert on stimulation, has a BiPAP on. HEENT: Head is normocephalic and atraumatic. Eyes; pupils were equal, round, and reactive to light bilaterally. Extraocular movements intact bilaterally. Throat, no evidence of erythema or exudates in the posterior pharynx. Has poor dentition. NECK: Supple. Good range of motion. PULMONARY: Clear to auscultation bilaterally. No wheezing, no rales, no rhonchi, no crackles appreciated, on BiPAP. CARDIOVASCULAR: Positive S1 and S2. No murmurs, rubs, or gallops appreciated. ABDOMEN: Soft, nondistended, and nontender to palpation. Bowel sounds present. MUSCULOSKELETAL: Unable to assess. NEUROLOGIC: Unable to assess. SKIN: Intact. Warm to touch. Good cap refill. PSYCHIATRIC: Currently at baseline dementia with combativeness, but she is awake and alert during my examination. LABORATORY FINDINGS: Show white count 11.3, hemoglobin 10, hematocrit is 39, and platelets of 42. Coagulation; PT 21, INR 1.8, and PTT 26. Chemistry; sodium 150, potassium 3.6, chloride 118, bicarbonate 20, anion gap 15, BUN is 47, creatinine is 1.43, glucose is 119, and calcium is 10. MICROBIOLOGY: Sputum culture shows Valencia parapsilosis. Urine culture negative. Blood cultures, no growth to date. IMPRESSION: 1. Metabolic encephalopathy concerning for underlying hepatic in nature. 2. Acute exacerbation of congestive heart failure. 3. Elevated transaminases, improving. 4. Right upper lobe pneumonia. 5. Sepsis secondary to pneumonia. 6. Thrombocytopenia with underlying DIC. 7. Hypernatremia. 8. Hypokalemia. PLAN: At this time, she is still on BiPAP. She will continue with IV antibiotics as well, in which ID is following closely. Pulmonary Critical Care is also managing her BiPAP management. She has been denied LTAC placement. We will work on an appeals process, as the patient will likely need significant more time before she improves. Family still make a decision in terms of code status. Otherwise, we will continue with same plan of care. We will go ahead and increase the free water flushes as well. As her sodium is elevated, we will get a.m. labs. Spent more than 35 minutes. MD JEFRY Lopez/MINDA /[id number]
--- NOTE | 2019-05-15 18:10 | Progress Note ---
DATE: 05/15/2019 Clinical Note I had a discussion with the patient's children, of note two of her daughters were present at bedside. One was Andrei Robbins and the other daughter was name is Shannan Fishman and which we talked about code status. After further collaboration with the entire family, it seems that they have agreed to DNR status. I discussed with them about the need for CPR or any intubation. At this time, they want to let their mother peacefully in the event if she has any kind of cardiac arrest. At this time, the order has been changed to DNR in the computer. A bracelet will be placed. We had this conversation with the nursing staff present as well and I asked them again about DNR status and they have agreed to DNR. At this time, while we will continue same medical management, DNR order has been placed and once again, this is the family's wishes and the order has been placed. MD JEFRY Lopez/MINDA /[id number]
[2019-05-16] VITALS (24 sets, daily range): BP systolic 91–150; BP diastolic 42–87
[2019-05-16 04:46] LABS: BASOPHILS # (AUTO) 0.1 (0.0-0.1); BASOPHILS % 0.6 % (0.0-1.0); EOSINOPHILS # (AUTO) 0.1 (0.0-0.4); EOSINOPHILS % 1.3 % (0.0-6.0); HEMATOCRIT 35.8 % (34.2-44.1); HEMOGLOBIN 9.7 g/dL (12.0-16.0); LYMPHOCYTES # (AUTO) 0.9 (1.0-3.2); LYMPHOCYTES % 10.7 % (18.0-39.1); MEAN CORPUSCULAR HEMOGLOBIN 24.3 pg (28-32); MEAN CORPUSCULAR HGB CONC 27.1 g/dL (31-35); MEAN CORPUSCULAR VOLUME 89.5 fL (81-99); MONOCYTES # (AUTO) 0.8 (0.2-0.8); MONOCYTES % 9.9 % (4.4-11.3); NEUTROPHILS # (AUTO) 6.4 (2.1-6.9); RED CELL DISTRIBUTION WIDTH 19.1 % (11.7-14.4)
[2019-05-16 04:53] LABS: PLATELET COUNT 28 x10e3/uL (140-360)
[2019-05-16 05:16] LABS: ALBUMIN 2.6 g/dL (3.5-5.0); ALBUMIN/GLOBULIN RATIO 0.8 (0.8-2.0); ANION GAP 15.6 mmol/L (8-16); CREATININE, SERUM 1.17 mg/dL (0.57-1.11); POTASSIUM 3.6 mmol/L (3.5-5.1)
[2019-05-16] MEDS: INSULIN REGULAR, HUMAN 100 UNIT/1 ML 3ML VIAL SQ SCH ×4 (06:00→20:55)
[2019-05-16 06:54] LABS: ANISOCYTOSIS SLIGHT; PLATELET ESTIMATE MARKEDLY DECREASED; PLATELET MORPHOLOGY COMMENT NORMAL; RBC MORPHOLOGY COMMENT ABNORMAL
[2019-05-16 06:55] LABS: HYPOCHROMASIA MODERATE; POLYCHROMASIA FEW
[2019-05-16] MEDS: LACTULOSE SYRUP 20 GM/30 ML UDC PO SCH (08:27)
[2019-05-16] MEDS: LISINOPRIL 2.5 MG TAB PO SCH (08:27)
[2019-05-16] MEDS: POTASSIUM CHLORIDE 20MEQ/15ML UDC NG SCH (08:27)
[2019-05-16] MEDS: RIFAXIMIN 550 MG TABLET PO SCH ×4 (08:27→16:10)
[2019-05-16] MEDS ORDERED: HALOPERIDOL LACTATE 5 MG/ML VIAL IV PRN (09:30)
--- NOTE | 2019-05-16 09:38 | Progress Note ---
DATE: 05/16/2019 SUBJECTIVE: The patient was on BiPAP during the night. She has some intermittent confusion. The family has opted for DNR and nonaggressive measures. PHYSICAL EXAMINATION: VITAL SIGNS: Blood pressure is 133/78 and the saturation is 100% on 3 L. HEENT: Shows no facial swelling or erythema. CARDIAC: Reveals regular rate and rhythm with normal S1, S2. LUNGS: Auscultation of lungs shows decreased breath sounds at the bases. ABDOMEN: Soft, nontender. There is no rebound or guarding. EXTREMITIES: Show no leg edema or calf tenderness. There is no cyanosis or clubbing. IMPRESSION: 1. Hyponatremia. 2. Bhaex-wx-sgppybz systolic congestive heart failure. 3. Cirrhosis. 4. Lwrln-li-bygusvo respiratory failure. 5. Metabolic encephalopathy. 6. Coagulopathy. PLAN: 1. The patient will continue oxygen and BiPAP as needed. 2. Continue IV fluids. 3. Continue antibiotics. 4. DNR. 5. Transfer to the floor. Prosper Koo MD [facility]/MODL /[id number]
[2019-05-16] MEDS: DEXTROSE 5% 1,000 ML IV SCH (16:00)
--- NOTE | 2019-05-16 17:20 | Progress Note ---
DATE: 05/16/2019 Medicine Progress Note SUBJECTIVE: The patient is now on nasal cannula. She does have some wheezing and crackles on exam. She has improved tremendously compared to yesterday. She was on the BiPAP yesterday. PHYSICAL EXAMINATION: VITAL SIGNS: Temperature is 98, pulse 69, respiratory rate is 25, blood pressure 124/57, pulse ox 98% on 2 L nasal cannula. GENERAL: Not in acute distress. Alert and oriented x2. Cooperative on examination. HEENT: Head is normocephalic and atraumatic. Eyes; pupils were equal, round, and reactive to light bilaterally. Extraocular movements intact bilaterally. Throat, no evidence of erythema or exudates in the posterior pharynx. Has poor dentition. NECK: Supple. Good range of motion. PULMONARY: Clear to auscultation bilaterally. No wheezing, no rales, no rhonchi, no crackles appreciated. CARDIOVASCULAR: Positive S1 and S2. No murmurs, rubs, or gallops appreciated. ABDOMEN: Soft, nondistended, and nontender to palpation. Bowel sounds present. MUSCULOSKELETAL: Strength is 5/5 throughout. No evidence of any muscle deficits on examination. No weakness appreciated. NEUROLOGIC: Cranial nerve II through XII grossly intact. No evidence of any neurological deficits on exam. SKIN: Intact. Warm to touch. Good cap refill. PSYCHIATRIC: At baseline. EXTREMITIES: No edema. Good range of motion throughout. LABORATORY DATA: White count 8.3, hemoglobin 9.7, hematocrit is 35, platelets of 28. Chemistries; sodium 154, potassium 3.6, chloride 121, bicarbonate 21, anion gap of 15, BUN is 41, creatinine is 1.1, glucose is 79. MICROBIOLOGY: Noted. IMPRESSION: 1. Metabolic encephalopathy secondary to underlying hepatic in nature with hepatic encephalopathy. 2. Acute exacerbation of congestive heart failure. 3. Elevated transaminases, improving. 4. Right upper lobe pneumonia. 5. Sepsis secondary to pneumonia. 6. Thrombocytopenia with underlying DIC. Also chronic thrombocytopenia. 7. Hyponatremia. 8. Hypokalemia. PLAN: At this time, she is on nasal cannula, improving tremendously. She is on IV antibiotics. ID is following very closely. Her sodium is elevated. I will go ahead and add D5W at 75 mL/hour continuously. Repeat labs in the morning. She will need a swallow eval hopefully that will occur on Friday. She is now DNR as per family's wishes in which I had a discussion consultation with the family yesterday. Otherwise, we will continue with same plan of care and monitor very closely. Get a.m. labs. MD JEFRY Lopez/MINDA /[id number]
[2019-05-17] VITALS (14 sets, daily range): BP systolic 93–133; BP diastolic 43–99
[2019-05-17] MEDS: DEXTROSE 5% 1,000 ML IV SCH ×2 (03:50→18:09)
[2019-05-17 05:17] LABS: BASOPHILS # (AUTO) 0.1 (0.0-0.1); BASOPHILS % 0.6 % (0.0-1.0); EOSINOPHILS # (AUTO) 0.2 (0.0-0.4); HEMATOCRIT 37.2 % (34.2-44.1); HEMOGLOBIN 9.9 g/dL (12.0-16.0); LYMPHOCYTES # (AUTO) 1.4 (1.0-3.2); LYMPHOCYTES % 14.9 % (18.0-39.1); MEAN CORPUSCULAR HEMOGLOBIN 24.3 pg (28-32); MEAN CORPUSCULAR HGB CONC 26.6 g/dL (31-35); MEAN CORPUSCULAR VOLUME 91.4 fL (81-99); MONOCYTES # (AUTO) 1.2 (0.2-0.8); MONOCYTES % 12.6 % (4.4-11.3); NEUTROPHILS # (AUTO) 6.5 (2.1-6.9); NEUTROPHILS % 69.4 % (38.7-80.0); RED BLOOD COUNT 4.07 x10e6/uL (3.6-5.1); RED CELL DISTRIBUTION WIDTH 19.3 % (11.7-14.4)
[2019-05-17 05:18] LABS: PLATELET COUNT 30 x10e3/uL (140-360)
[2019-05-17 05:38] LABS: ANION GAP 12.4 mmol/L (8-16); CALCIUM 9.9 mg/dL (8.4-10.2); CREATININE, SERUM 1.2 mg/dL (0.57-1.11); POTASSIUM 4.4 mmol/L (3.5-5.1)
[2019-05-17 06:36] LABS: ANISOCYTOSIS SLIGHT; HELMET CELLS SLIGHT; OVALOCYTES FEW; PLATELET ESTIMATE MARKEDLY DECREASED; PLATELET MORPHOLOGY COMMENT FEW LARGE; POIKILOCYTOSIS MODERATE; POLYCHROMASIA FEW
[2019-05-17 06:37] LABS: RBC MORPHOLOGY COMMENT ABNORMAL
[2019-05-17] MEDS: INSULIN REGULAR, HUMAN 100 UNIT/1 ML 3ML VIAL SQ SCH ×4 (07:18→21:00)
[2019-05-17] MEDS: POTASSIUM CHLORIDE 20MEQ/15ML UDC NG SCH (09:00)
[2019-05-17] MEDS: LACTULOSE SYRUP 20 GM/30 ML UDC PO SCH (09:00)
[2019-05-17] MEDS: RIFAXIMIN 550 MG TABLET PO SCH ×2 (09:00→17:00)
[2019-05-17] MEDS: LISINOPRIL 2.5 MG TAB PO SCH (09:00)
--- NOTE | 2019-05-17 11:09 | Diagnostic Imaging Report ---
PROCEDURE: X-RAY MODIFIED BARIUM SWALLOW COMPARISON: None. INDICATION: Altered mental status, concern for aspiration Radiation Details: Fluoroscopy time: 2.8 minutes Cumulative dose: 6.28 mGy DISCUSSION: Fluoroscopic examination was performed in conjunction with speech pathology during swallowing a variety of thin and thick liquid consistencies. Provided images demonstrate laryngeal penetration with thin barium and trace aspiration. CONCLUSION: Modified barium swallow demonstrating laryngeal penetration with thin barium and trace aspiration. Please refer to the speech pathology report for further details. Signed by: Lo Gonzalez MD on 05/17/2019 11:05 AM
--- NOTE | 2019-05-17 12:56 | NUR ---
SPOKE WITH [facility] WHO STATES THEY SHOULD HAVE AN ANSWER BY END OF BUSINESS TODAY SPOKE WITH DR DAVISON WHO STATES PT WAS MADE DNR YESTERDAY NO LONGER HAS LTAC CRITERIA ORDERS FOR [facility] HOSPICE EDUCATION FOR FAMILY IN [place] PT TRANSFERING OUT OF ICU
--- NOTE | 2019-05-17 14:32 | NUR ---
SPOKE WITH FAMILY ABOUT CHOICE, FAMILY AT BEDSIDE WANTS SISTER TO COME BEFORE CHOICE IS GIVEN
--- NOTE | 2019-05-17 14:50 | NUR ---
FAMILY SIGNED CHOICE FOR [facility], MOST LIKELY TO RETURN TO [facility] FOR NURSING HOME PLACEMENT.
--- NOTE | 2019-05-17 15:40 | Progress Note ---
DATE: Pulmonary and Critical Care Progress Note SUBJECTIVE: The patient is still not responding well. Family is awaiting hospice. PHYSICAL EXAMINATION: VITAL SIGNS: Stable. HEENT: Shows no facial swelling or erythema. CARDIAC: Reveals regular rate and rhythm with normal S1 and S2. There are no murmurs or rubs. LUNGS: Auscultation of lungs reveals decreased breath sounds at the bases. There is no wheezing. ABDOMEN: Soft, nontender. There is no rebound or guarding. EXTREMITIES: Show no leg edema or calf tenderness. NEUROLOGIC: There are no focal abnormalities on neurological exam. IMPRESSION: 1. Metabolic encephalopathy. 2. [id number] systolic congestive heart failure. 3. Cirrhosis. 4. Disseminated intravascular coagulation. PLAN: 1. Family has opted for hospice. 2. Continue palliative measures. 3. Continue current cardiac regimen. Prosper Koo MD LM/MODL /[id number]
--- NOTE | 2019-05-17 15:46 | Progress Note ---
DATE: 05/17/2019 Medicine Progress Note SUBJECTIVE: The patient is very lethargic today on examination. She is responsive on sternal rub. She is able to open her eyes. She is able to look at me and follows some commands, but not that much. She is also pocketing her food. I had a long discussion with the family at bedside, in which the first who makes decision is her daughter, Catalina and that we talked to her about hospice and she is really thinking about hospice care. She did agree for few companies to come talk with them and see what is the possibility of hospice for her mother. She is going to also discuss with the rest of her family. PHYSICAL EXAMINATION: VITAL SIGNS: Temperature is 97, pulse 60 and regular, respiratory rate is 14, blood pressure 110/62, and pulse ox 100% on nasal cannula. GENERAL: Not in acute distress. She is alert, awake, but not oriented at all. Lethargic on examination. HEENT: Head; normocephalic, atraumatic. Eyes; pupils are equal, round, and reactive to light bilaterally. Extraocular movements intact bilaterally. Throat; no evidence of erythema or exudates in the posterior pharynx. Has poor dentition. NECK: Supple. Good range of motion. PULMONARY: Clear to auscultation bilaterally. No wheezing, no rales, no rhonchi, no crackles appreciated. CARDIOVASCULAR: Positive S1 and S2. No murmurs, rubs, or gallops appreciated. ABDOMEN: Soft, nondistended, and nontender to palpation. Bowel sounds present. MUSCULOSKELETAL: Strength is 5/5 throughout. No evidence of any muscle deficits on examination. No weakness appreciated. NEUROLOGIC: Cranial nerve II through XII grossly intact. No evidence of any neurological deficits on exam. SKIN: Intact. Warm to touch. Good cap refill. PSYCHIATRIC: Normal affect and mood. She is very lethargic. EXTREMITIES: No edema. Good range of motion throughout. LAB FINDINGS: White count is 9.3, hemoglobin 9.9, hematocrit is 37, platelets of 30. Chemistry; sodium 149, potassium 4.4, chloride 118, bicarb 23, anion gap 12, BUN 36, creatinine 1.2, glucose is 144. MICROBIOLOGY: Modified barium swallow performed today demonstrating laryngeal penetration with thin barium and aspiration. IMPRESSION: 1. Metabolic encephalopathy secondary to underlying hepatic in nature with hepatic encephalopathy and still very lethargic. 2. Acute exacerbation of congestive heart failure. 3. Elevated transaminases, improving. 4. Right upper lobe pneumonia. 5. Sepsis secondary to underlying pneumonia. 6. Thrombocytopenia concerning for underlying DIC. 7. Hyponatremia. 8. Hypokalemia. 9. Chronic thrombocytopenia. PLAN: At this time, the patient is very lethargic on examination. I had a long discussion with the family at bedside about hospice care. I see right now that the family seems to be agreeing with hospice. She did agree for us to have a couple of company come speak with them about hospice. She is concerned about where her mother will go. At this time, I will have Case Management come to see the family and talk with them. We will continue with D5W for hyponatremia. The patient is still DNR/DNI. We will get a.m. labs. Continue same plan of care with no changes at this time. Pulmonary and Critical Care and Neurology to consult and following accordingly. The patient also failed her swallow evaluation and it seems like in modified barium swallow, she had some laryngeal penetration as well. At this time, family needs to think about hospice services. I think this would be the best option for this patient considering her prognosis to be very poor. MD JEFRY Lopez/MINDA /[id number]
--- NOTE | 2019-05-17 22:00 | NUR ---
Report called to ROBBY Moore, pt transferred to Med surg w/ no tele per order. Family notified of transfer.
--- NOTE | 2019-05-17 22:11 | NUR ---
Pt arrived to the unit as transfer from ICU to Rm 286 (MS 3). Patient alert and oriented x0-1. Pt is generally aphasic as per report received from Archie (INFORMATION SYSTEMS SECURITY ANALYST). Pt is DNR in care status and is in need of total care. Pt extremely weak and needs turn Q2hr. Stage 2 ulcer to sacrum and covered with Allevyn dressing (C/D/I). Pt currently on aspiration precautions especially after failing swallow eval today. Pt on 3L NC. SCDs to BLE. IV on Left antecubital leaking and IVF (NS at 75ml/hr) placed on temporary hold. Will change IV tonight. Bed alarm active. Will monitor pt closely.
--- NOTE | 2019-05-17 23:15 | NUR ---
IV on left AC removed and site covered with gauze. Attempted x1 IV on left forearm but unsuccessful. Will call charge nurse for assistance on placing new IV.
[2019-05-18] VITALS: BP 121/57
--- NOTE | 2019-05-18 | NUR ---
After 6 attempts, new IV (24 gauge) successfully placed on right upper chest (near right axillary area). IVF (D5 at 30ml/hr due to size of catheter). Will gradually increase if needed.
--- NOTE | 2019-05-18 01:10 | NUR ---
Pt given bed bath. Oral care was also provided. Lots of pocketed food obtained from mouth. Pt kept on aspiration precaution.
[2019-05-18 04:00] VITALS: BP 106/58
[2019-05-18 05:55] LABS: BASOPHILS # (AUTO) 0.1 (0.0-0.1); BASOPHILS % 0.6 % (0.0-1.0); EOSINOPHILS # (AUTO) 0.2 (0.0-0.4); EOSINOPHILS % 2.2 % (0.0-6.0); HEMATOCRIT 36.9 % (34.2-44.1); HEMOGLOBIN 9.7 g/dL (12.0-16.0); LYMPHOCYTES # (AUTO) 1.3 (1.0-3.2); LYMPHOCYTES % 11.9 % (18.0-39.1); MEAN CORPUSCULAR HEMOGLOBIN 24.6 pg (28-32); MEAN CORPUSCULAR HGB CONC 26.3 g/dL (31-35); MEAN CORPUSCULAR VOLUME 93.4 fL (81-99); MONOCYTES # (AUTO) 1.1 (0.2-0.8); MONOCYTES % 10.5 % (4.4-11.3); NEUTROPHILS # (AUTO) 8.1 (2.1-6.9); NEUTROPHILS % 74.3 % (38.7-80.0); RED BLOOD COUNT 3.95 x10e6/uL (3.6-5.1); RED CELL DISTRIBUTION WIDTH 19.2 % (11.7-14.4)
[2019-05-18 05:58] LABS: PLATELET COUNT 25 x10e3/uL (140-360)
[2019-05-18 06:13] LABS: ANION GAP 11.6 mmol/L (8-16); CALCIUM 9.4 mg/dL (8.4-10.2); CREATININE, SERUM 1.29 mg/dL (0.57-1.11); POTASSIUM 4.6 mmol/L (3.5-5.1)
--- NOTE | 2019-05-18 06:45 | NUR ---
Left voice message for Dr. Vick to call back to report platelet count of 25 this morning. Report passed on to marlonnveusebia RN (Leah Clarke). Awaiting on MD call back.
--- NOTE | 2019-05-18 07:00 | NUR ---
Pt received in bed this morning. Pt is aox1 at this time, not really verbalizing just moans a little. 0 s/s of acute distress noted.
[2019-05-18 07:29] LABS: BAND NEUTROPHILS % (MANUAL) 4 %; EOSINOPHILS % (MANUAL) 2 % (0-7); LYMPHOCYTES % (MANUAL) 12 % (19-48); MONOCYTES % (MANUAL) 7 % (3.4-9.0); NEUTROPHILS % (MANUAL) 75 % (40-74)
[2019-05-18] MEDS: INSULIN REGULAR, HUMAN 100 UNIT/1 ML 3ML VIAL SQ SCH ×2 (07:30→11:30)
[2019-05-18 07:33] LABS: ELLIPTOCYTE, RBC SLIGHT; OVALOCYTES FEW
[2019-05-18 07:34] LABS: POIKILOCYTOSIS SLIGHT; POLYCHROMASIA FEW
[2019-05-18 07:36] LABS: HELMET CELLS SLIGHT; PLATELET MORPHOLOGY COMMENT NORMAL; RBC MORPHOLOGY COMMENT ABNORMAL
[2019-05-18 07:37] LABS: PLATELET ESTIMATE MARKEDLY DECREASED
[2019-05-18 08:00] VITALS: BP 108/54
[2019-05-18 08:30] VITALS: BP 108/54
[2019-05-18] MEDS: LACTULOSE SYRUP 20 GM/30 ML UDC PO SCH (09:00)
[2019-05-18] MEDS: POTASSIUM CHLORIDE 20MEQ/15ML UDC NG SCH (09:00)
[2019-05-18] MEDS: LISINOPRIL 2.5 MG TAB PO SCH (09:00)
--- NOTE | 2019-05-18 09:02 | NUR ---
CALLED AND SPOKE WITH NURSE, PT NEEDS DISCHARGE ORDER BEFORE [facility] CAN TRANSPORT BACK TO [facility]
--- NOTE | 2019-05-18 10:08 | NUR ---
Spoke with Dr. Vick at this time and states pt can be discharged to Hospice.
[2019-05-18 11:18] VITALS: BP 112/54
--- NOTE | 2019-05-18 11:35 | Progress Note ---
DATE: 05/18/2019 SUBJECTIVE: The patient was transferred out of the Intensive Care Unit. The family is opting for comfort care. Hospice has been consulted. PHYSICAL EXAMINATION: VITAL SIGNS: Stable. HEENT: Shows no facial swelling or erythema. CARDIAC: Reveals regular rate and rhythm with normal S1, S2. LUNGS: Auscultation of lungs reveals decreased breath sounds at the bases. There is no wheezing. ABDOMEN: Soft, nontender. There is no rebound or guarding. EXTREMITIES: Show no leg edema or calf tenderness. There is no cyanosis or clubbing. SKIN: Shows no rashes. IMPRESSION: 1. Metabolic encephalopathy. 2. Acute exacerbation of congestive heart failure. 3. Thrombocytopenia. 4. Cirrhosis. 5. Hyponatremia. PLAN: 1. Continue oxygen and comfort measures. 2. Awaiting approval of hospice and disposition. Prosper Koo MD [facility]/MODL /[id number]
--- NOTE | 2019-05-18 13:23 | NUR ---
SPOKE WITH DONIS WITH [facility], TRANSPORT WILL BE HERE BETWEEN 2:15 AND 2:30, CALLED AND LET NURSE KNOW TO COMPLETE TRANSFER.
--- NOTE | 2019-05-18 14:04 | NUR ---
PT GOING TO [facility] Address: [facility], [place] [address] WITH [facility].
--- NOTE | 2019-05-18 16:09 | NUR ---
Pt discharged to [facility] under [facility]. Pt was transferred by ambulance. Family at the bedside and is aware of discharge.
--- NOTE | 2019-05-20 08:12 | Discharge Summary ---
FINAL DISCHARGE DIAGNOSES: 1. Metabolic encephalopathy secondary to concerns of hepatic encephalopathy. 2. Acute exacerbation of congestive heart failure. 3. Elevated transaminases improved. 4. Sepsis secondary to healthcare-associated pneumonia. 5. Thrombocytopenia concerning for underlying DIC as well as also chronic thrombocytopenia. 6. Electrolyte abnormalities. 7. Medically debilitated. 8. Baseline dementia. 9. Discharged on hospice care per family's wishes. CONSULTANTS: Pulmonary Critical Care, Neurology, GI, Hematology, Oncology. PHYSICAL EXAMINATION: VITAL SIGNS: Temperature is 95.4, pulse 57, respiratory rate is 16, blood pressure is 112/54, pulse ox 100% on 3 L nasal cannula. LABORATORY DATA: Labs show white count was 10.9, hemoglobin 9.7, hematocrit 36.9, and platelets of 25. Blood gas showed a pH of 7.28, pCO2 of 45, pO2 of 137, and bicarbonate of 21. Coagulation, PT 21, INR 1.82, PTT 26, fibrinogen is 151. Chemistry level shows sodium 144, potassium 4.6, chloride 115, bicarbonate 22, anion gap of 11, BUN is 36, creatinine is 1.29, glucose is 121. Hemoglobin A1c is 5.9, calcium is 9.4, magnesium is 1.7, total bilirubin is 2, AST is 31, ALT is 35, alkaline phosphatase is 77. Ammonia level is 104. CK is 18, CK-MB is 2.2. Troponins were slightly elevated at 0.338, albumin 2.6, LDL was 70. Urinalysis negative. ADONIS negative. Antimitochondrial antibodies less than 20, serologies. Hepatitis was negative. Urine Legionella negative. MICROBIOLOGY: Blood cultures negative. Urine cultures were negative. Sputum culture shows some [place] parapsilosis. IMAGING STUDIES: Chest x-ray on admission shows some cardiomegaly and pulmonary vascular prominence. Airspace opacity in the right upper lobe may be related to edema or underlying pneumonia. Abdominal x-ray shows there is evidence of any NG tube in the distal tip of the GE junction, shows evidence of a partially visualized NG tube below the level of diaphragm. Liver ultrasound shows fatty infiltration of the liver without focal hepatic abnormality, possible sludge while in the posterior aspect of the gallbladder versus external structure. No evidence of cholelithiasis. Minimal ascites in the right pleural effusion was noted. MRCP showed moderate right to trace left lower lesion in the pancreatic body. No connection with the main pancreatic duct. No suspicious features seen. Diffuse fatty infiltrate of the pancreas sludge and gallstones. MRA of the head and neck was found to be negative. MRI of the brain was found to be negative. Modified barium swallow is demonstrating laryngeal penetration with thin barium and trace aspiration. HOSPITAL COURSE: This is a 78-year-old female, who was admitted to Dr. Mckeon and came in, found to be encephalopathic, unusual from her baseline, was admitted for further evaluation. The patient was found to be in sepsis requiring intubation and mechanical ventilator being managed by Pulmonary Critical Care. The patient was being treated for underlying right upper lobe pneumonia seen on imaging studies. She was also found to have elevated transaminases, which were monitored throughout the hospital course. She was also treated for acute exacerbation of CHF. She was on antibiotics, neb treatments, and even diuretics. The patient also had underlying thrombocytopenia concerning for underlying DIC requiring Hematology consultation. The patient also has a history of chronic thrombocytopenia as well. The patient's electrolytes were adjusted accordingly throughout the hospital course. She was on tube feeds as well initially while in the hospital stay. Several consultants were involved in this patient's care. The patient's overall health has declined tremendously over the last several years, of note [place]. I discussed the overall plan of care with the family at bedside about possible hospice measures. At this time, the family wanted to talk with other family members and they have agreed to be discharged to home with home hospice care. They understand that the patient will be discharged on no antibiotics or any home medications that she needs. At this time, I reviewed her home medications and there is no antibiotic or any other medication needed for discharge. The family verbalized understanding and agreed with plan of care. She also had a hospice company come talk to them as well as Case Management and I talked to them on the day of discharge, and they are all in agreement to home with hospice services. They will do pleasure feedings at home as they wanted and we were supportive of it. The patient failed her swallow evaluation on several occasions as well. The patient has been tremendously declining over the last several months. According to the family that their mother did not want this for herself to be this way. On the day of discharge, vital signs were stable, labs reviewed and stable. The patient was seen and evaluated, examined thoroughly on the day of discharge. No other complaints. The patient verbalized understanding and agrees to plan of care with followup appointment as an outpatient with primary care physician in 1 week and the rest of the consultants as planned above. The patient will follow up now with a home with hospice services with no other issues. DISPOSITION: Home on hospice care. CONDITION: Stable. DIET: Pleasure feedings. MEDICATIONS: See medication reconciliation form. In the event of any worsening symptoms, the patient was advised to come back to the ED for further evaluation. Discharge summary took greater than 35 minutes. Once again, the family agreed to discharge home with hospice services with no medications at this time as per family's wishes. The nursing staff is present as well as Case Management. Family spoke with hospice company, which they agree to home with hospice services. MD JEFRY Lopez/MINDA /[id number]
== END 2019-05-18 15:40 | disposition hospice, inpatient (51) | DRG 871 ==
LOC: ER 13:39 → ERHOLD 16:46 → MED/SURG 21:50 → ICU 05-08 06:00 → MED/SURG3 05-17 22:11
PROVIDERS: ADMIT Internal Medicine; ATTEND Internal Medicine
PROC: 5A1945Z Respiratory Ventilation, 24-96 Consecutive Hours (ICD-10-PCS; principal; 2019-05-08)
PROC: 0BH17EZ Insertion of Endotracheal Airway into Trachea, Via Natural or Artificial Opening (ICD-10-PCS; 2019-05-08)
PROC: 30233R1 Transfusion of Nonautologous Platelets into Peripheral Vein, Percutaneous Approach (ICD-10-PCS; 2019-05-11)
PROC: 30233L1 Transfusion of Nonautologous Fresh Plasma into Peripheral Vein, Percutaneous Approach (ICD-10-PCS; 2019-05-12)
PROC: 30233K1 Transfusion of Nonautologous Frozen Plasma into Peripheral Vein, Percutaneous Approach (ICD-10-PCS; 2019-05-12)
DX: A41.9 Sepsis, unspecified organism (principal); I50.43 Acute on chronic combined systolic (congestive) and diastolic (congestive) heart failure; J18.9 Pneumonia, unspecified organism; G93.41 Metabolic encephalopathy; J96.00 Acute respiratory failure, unspecified whether with hypoxia or hypercapnia; D65 Disseminated intravascular coagulation [defibrination syndrome]; K76.7 Hepatorenal syndrome; B37.1 Pulmonary candidiasis; I13.0 Hypertensive heart and chronic kidney disease with heart failure and stage 1 through stage 4 chronic kidney disease, or unspecified chronic kidney disease; E44.0 Moderate protein-calorie malnutrition; B17.9 Acute viral hepatitis, unspecified; E72.4 Disorders of ornithine metabolism; E87.0 Hyperosmolality and hypernatremia; N17.9 Acute kidney failure, unspecified; F03.91 Unspecified dementia, unspecified severity, with behavioral disturbance; D69.6 Thrombocytopenia, unspecified; K21.9 Gastro-esophageal reflux disease without esophagitis; E78.5 Hyperlipidemia, unspecified; G47.00 Insomnia, unspecified; Z91.81 History of falling; M81.0 Age-related osteoporosis without current pathological fracture; Z85.3 Personal history of malignant neoplasm of breast; Z95.1 Presence of aortocoronary bypass graft; E87.6 Hypokalemia; E86.0 Dehydration; E11.42 Type 2 diabetes mellitus with diabetic polyneuropathy; Z95.2 Presence of prosthetic heart valve; K72.90 Hepatic failure, unspecified without coma; E11.649 Type 2 diabetes mellitus with hypoglycemia without coma; E83.52 Hypercalcemia; E87.5 Hyperkalemia; K74.60 Unspecified cirrhosis of liver; N18.9 Chronic kidney disease, unspecified; Z66 Do not resuscitate
CPT/HCPCS: 31500; 36415; 36600; 70450; 70544; 70547; 70551; 71045; 74018; 74181; 74230; 76705; 80048; 80053; 80061; 80076; 80202; 81001; 82140; 82248; 82550; 82553; 82728; 82805; 82948; 83010; 83036; 83735; 84132; 84484; 85025; 85045; 85384; 85610; 85730; 86022; 86039; 86255; 86790; 86850; 86900; 87040; 87070; 87086; 87205; 87449; 93005; 93306; 94002; 94003; 94660; 94667; 94668; 97139; 99284; J0330; J0692; J1630; J1817; J1940; J2001; J3370; J3475; J3480; J7040; J7042; J7050; J7060; J7070; P9017; P9034